=== PATIENT | male | born 1960 | race Caucasian/White ===

== ENCOUNTER 2021-05-02 19:51 | Inpatient (IN) | payer OTHER, SELFPAY ==
[2021-05-02 19:56] VITALS: BP 101/79; PULSE 118; RESP 29; TEMP 38.3; O2SAT 85; BMI 29.0
--- NOTE | 2021-05-02 19:56 | XRR_ITS ---
PROCEDURE INFORMATION: Exam: XR Chest Exam date and time: 05/02/2021 7:56 PM Age: 61 years old Clinical indication: Shortness of breath; Patient HX: Covid+; Additional info: SOB TECHNIQUE: Imaging protocol: XR of the chest. Views: 1 view. COMPARISON: No relevant prior studies available. FINDINGS: Lungs: Ground-glass opacities in the central and lower lungs. Pleural spaces: Unremarkable. No pleural effusion. No pneumothorax. Heart/Mediastinum: Unremarkable. No cardiomegaly. Bones/joints: Unremarkable. Gastrointestinal tract: Interposed colon beneath the right diaphragm. Prominent gas-filled colon, likely ileus. XR/XR chest 1V portable [id number] IMPRESSION: 1. Multilobar ground-glass opacities, consistent with pneumonia.
--- NOTE | 2021-05-02 19:56 | ECG_ITS ---
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
[2021-05-02 20:00] VITALS: PULSE 120; RESP 43; O2SAT 90
[2021-05-02 20:13] LABS: ABG PCO2 24.2 mmHg (35-45); ABG PH Result 7.55 (7.35-7.45); Arterial Blood Gas Hematocrit 52.2 % (42-52); Base Excess ABG 0.9 mmol/L (-2.0-2.0); Blood Gas Operator Identificat HARKR; Blood Gas Sample Site Brachial, left; Blood Gas Sample Type Arterial; HCO3 ABG 21.2 mmol/L (22-26); Oxygen Device BIPAP
[2021-05-02 20:16] LABS: Hematocrit 51.8 % (42.0-52.0); Hemoglobin 17.1 g/dL (11.7-16.6); Mean Corpuscular Hemoglobin 31.8 pg (28.0-34.0); Mean Corpuscular Volume 96.5 fl (80-94); Platelet Count 449 10^3/cmm (130-400); Red Blood Count 5.37 10^6/uL (4.1-5.3); Red Cell Distribution Width 13.7 % (12.1-15.1); White Blood Count 15.6 10^3/uL (4.0-10.0)
[2021-05-02] MEDS: dexamethasone 4 mg/mL INJ 6 MG IVP (20:38)
[2021-05-02 20:42] LABS: INR 1.38 (0.8-1.2)
[2021-05-02] MEDS: acetaminophen 1,000 MG/100 ML PIGGYBACK 400 MG IV (20:42)
--- NOTE | 2021-05-02 20:42 | W.ED.SOB ---
HPI - SOB/Dyspnea General: Chief Complaint: Shortness of Breath/Dyspnea Stated Complaint: COVID-DYSPNEA Time Seen by Provider: 05/02/21 19:54 Source: patient and EMS Mode of arrival: EMS Limitations: no limitations History of Present Illness: HPI Narrative: 61-year-old male who was diagnosed with Covid he states roughly 8 to 9 days ago. Patient called EMS he is having increasing shortness of breath over the last 2 to 3 days. He states they arrived his pulse ox was in the 50s. He is currently on CPAP machine by them. Patient is in respiratory distress with tachypnea. He is able to speak in 2-4 word sentences at this time. He been febrile he states he has had a productive cough. No vomiting or diarrhea. Associated symptoms: Reports fever(s); Deny abdominal pain, chest pain, nausea or vomiting Review of Systems Const: Reports: fever(s) and chills Eyes: Denies: blurry vision or eye discomfort ENMT: Denies: throat pain or dental pain Card: Denies: chest pain Resp: Reports: dyspnea and non-productive cough GI: Denies: abdominal pain, nausea, vomiting or diarrhea : Denies: dysuria Musc: Denies: neck pain or back pain Skin/Breast: Denies: rash Neuro: Denies: headache(s) Psych: Denies: depression Tru/Lymph: Denies: easy bruising All/Imm: Denies: urticaria Physical Exam Const: COMMON NORMALS: patient oriented x3 GENERAL APPEARANCE: in distress and ill appearing HENMT: COMMON NORMALS: normocephalic and atraumatic HEAD & SCALP: normocephalic and atraumatic Eye: COMMON NORMALS: Equal, round and reactive pupils present and EOMs intact bilaterally PUPIL: Yes Equal, round and reactive pupils present Neck/C-Spine: COMMON NORMALS: full ROM and supple Chest: COMMONS NORMALS: normal inspection of the chest and normal palpation of entire chest wall Resp: EFFORT & INSPECTION: Yes tachypneic and Yes respiratory distress AUSCULTATION: rales Cardio: COMMON NORMALS: regular rhythm and No murmurs present (Cardio) RATE: tachycardic RHYTHM: regular rhythm GI: COMMON NORMALS: Normal to inspection, nondistended, normoactive bowel sounds present, Soft to palpation, non-tender and no masses PALPATION: Yes Soft to palpation Extremity: COMMON NORMALS: normal to inspection and full ROM Neuro: COMMON NORMALS: patient oriented x3, moves all extremities and no focal motor deficits Psych: COMMON NORMALS: mental status grossly normal, Normal thought process present and cooperative THOUGHT PROCESS: Normal thought process present Skin: COMMON NORMALS: no rashes or lesions noted and no wounds GENERAL SKIN EXAM: no rashes or lesions noted Procedures Central Line Placement Right IJ: Time Out Performed: Yes Patient Placed on Monitor/Pulse Ox: Yes MD Prep: mask, gown and gloves Central Line Prep: Chlorhexidine scrub Ultrasound Used for Placement: Yes Central Line Lumen Inserted: triple Post Procedure: sutured in place, good blood return, all ports aspirated, flushed, capped and sterile dressing applied Post Procedure X-Ray: tip of catheter in good position and no pneumothorax seen Patient Tolerated Procedure: well Complications: none Intubation Time out performed: Yes sedative: Etomidate Mg Given: 20 paralytic: Succinylcholine Mg Given: 100 Laryngoscope: Dionna ET Tube Size: 8 ET Tube Uncuffed: No Tube Secured Depth (cm): 26 Tube Secured Location: lips Tube Placement Confirmation: visualized tube passing through cords, equal breath sounds bilaterally, no breath sounds over epigastrium and confirmation by capnometry Patient Tolerated Procedure: well Intubation Complications: none Course Vital Signs: Vital signs: Vital Signs Temperature 100.9 F H 05/02/21 19:56 Pulse Rate 44 L 05/03/21 04:05 Respiratory Rate 20 H 05/03/21 02:46 Blood Pressure 160/86 05/03/21 04:05 Pulse Oximetry 97 05/03/21 04:00 MDM - SOB/Dyspnea MDM Narrative: Medical decision making narrative: Patient presents here with Covid pneumonia. Patient continued to be hypoxic even on BiPAP. Patient initially was DNI but after I spoke to him at length he decided he would like to be intubated. Patient was intubated had central line started. I spoke to hospitalist and will admit to the ICU. Lab Data: Labs: Lab Results 05/02/21 05/02/21 05/02/21 20:03 20:10 20:10 WBC 15.6 10^3/uL H 10 ^3/uL (4.0-10.0) Corrected WBC 14.6 10^3/cmm H 1 0^3/cmm (4.8-10.8) RBC 5.37 10^6/uL H 10 ^6/uL (4.1-5.3) Hgb 17.1 g/dL H g/dL (11.7-16.6) Hct 51.8 % % (42.0-52.0) MCV 96.5 fl H fl (80-94) MCH 31.8 pg pg (28.0-34.0) MCHC 33.0 g/dL g/dL (30.0-36.0) RDW 13.7 % % (12.1-15.1) Plt Count 449 10^3/cmm H 10 ^3/cmm (130-400) MPV 10.0 fL fL (7.4-10.4) Lymph % (Auto) Not Reportable [place] % (Auto) Not Reportable Lymph # (Auto) Not Reportable [place] # (Auto) Not Reportable Total Counted 100 (0-100) Atypical Lymphs % 7.0 % H % (0-5) Absolute Neutrophi ls 12.0 10^3/cmm H 1 0^3/cmm (1.4-6.5) Segmented Neutroph ils 71 % % Abs Segm Neuts (Ma n) 11.1 10/cmm H 10/ cmm (1.6-7.1) Band Neutrophils 6.0 % % Abs Band Neuts (Ma n) 0.9 10^3/cmm 10^3 /cmm (0.0-1.2) Absolute Lymphocyt es 2.3 10^3/cmm 10^3 /cmm (1.2-3.4) Lymphocytes (Manua l) 8 % % Monocytes (Manual) 1.0 % % Absolute Monocytes 0.2 10^3/cmm 10^3 /cmm (0.1-0.6) Eosinophils (Manua l) Not Reportable Basophils (Manual) Not Reportable Nucleated RBCs 7.0 /100WBC H /10 0WBC (0-1) Platelet Estimate Increased (Normal) Giant Platelets Trace Polychromasia Trace PT 17.30 SECONDS H S ECONDS (12.1-14.9) INR 1.38 H (0.8-1.2) Fibrinogen 537 mg/dL H mg/dL (174-498) D-Dimer 16.42 ug/mIFEU H ug/mIFEU (0-0.59) Specimen Type Arterial Sample Site Brachial, left ABG pH 7.55 H (7.35-7.45) ABG pCO2 24.2 mmHg L mmHg (35-45) ABG pO2 71.0 mmHg L mmHg (80.0-100.0) ABG HCO3 21.2 mmol/L L mmo l/L (22-26) ABG Base Excess 0.9 mmol/L mmol/L (-2.0-2.0) Alpesh Test N/a Hematocrit 52.2 % H % (42-52) O2 Delivery Device Bipap FiO2 100.0 % % Tidal Volume PEEP Mint Machine Operator ID Harkr Sodium Potassium Chloride Carbon Dioxide Anion Gap BUN Creatinine GFR Calculation Glucose Calculated Osmolal ity Lactic Acid Lactic Acid (Sepsi s) Calcium Total Bilirubin AST ALT Alkaline Phosphata se C-Reactive Protein NT-Pro-B Natriuret Pep Total Protein Albumin Globulin Procalcitonin SARS-CoV-2 Ag (Rap id) 05/02/21 05/02/21 05/02/21 20:10 20:10 22:47 WBC Corrected WBC RBC Hgb Hct MCV MCH MCHC RDW Plt Count MPV Lymph % (Auto) [place] % (Auto) Lymph # (Auto) [place] # (Auto) Total Counted Atypical Lymphs % Absolute Neutrophi ls Segmented Neutroph ils Abs Segm Neuts (Ma n) Band Neutrophils Abs Band Neuts (Ma n) Absolute Lymphocyt es Lymphocytes (Manua l) Monocytes (Manual) Absolute Monocytes Eosinophils (Manua l) Basophils (Manual) Nucleated RBCs Platelet Estimate Giant Platelets Polychromasia PT INR Fibrinogen D-Dimer Specimen Type Arterial Sample Site Brachial, right ABG pH 7.51 H (7.35-7.45) ABG pCO2 32.6 mmHg L mmHg (35-45) ABG pO2 54.8 mmHg L mmHg (80.0-100.0) ABG HCO3 25.7 mmol/L mmol/ L (22-26) ABG Base Excess 3.2 mmol/L H mmol /L (-2.0-2.0) Alpesh Test N/a Hematocrit 48.1 % % (42-52) O2 Delivery Device Bipap FiO2 95.0 % % Tidal Volume PEEP Mint Machine Operator ID Harkr Sodium 129 mmol/L L mmol /L (136-145) Potassium 5.0 mmol/L mmol/L (3.5-5.1) Chloride 90 mmol/L L mmol/ L (98-107) Carbon Dioxide 21 mmol/L L mmol/ L (22-29) Anion Gap 23.0 H (5-19) BUN 38 mg/dL H mg/dL (8-23) Creatinine 1.6 mg/dL H mg/dL (0.7-1.2) GFR Calculation 44.3 mL/min L mL/ min (90-130) Glucose 186 mg/dL H mg/dL (65-115) Calculated Osmolal ity 282 mOsm/kg L mOs m/kg (285-295) Lactic Acid 7.0 mmol/L H* mmo l/L (0.5-2.2) Lactic Acid (Sepsi s) Calcium 8.5 mg/dL mg/dL (8.5-10.5) Total Bilirubin 1.3 mg/dL H mg/dL (0.15-1.2) AST 76 U/L H U/L (0-40) ALT 34 U/L U/L (0-41) Alkaline Phosphata se 114 IU/L IU/L (40-130) C-Reactive Protein 161.0 mg/L H mg/L (0.0-4.9) NT-Pro-B Natriuret Pep 561 pg/mL H pg/mL (0-125) Total Protein 7.5 g/dL g/dL (6.6-8.7) Albumin 2.5 g/dL L g/dL (3.5-5.2) Globulin 5.0 g/dL H g/dL (1.3-4.6) Procalcitonin 0.72 ng/mL H ng/m L (0-0.5) SARS-CoV-2 Ag (Rap id) 05/02/21 05/02/21 05/03/21 22:56 23:30 00:25 WBC Corrected WBC RBC Hgb Hct MCV MCH MCHC RDW Plt Count MPV Lymph % (Auto) [place] % (Auto) Lymph # (Auto) [place] # (Auto) Total Counted Atypical Lymphs % Absolute Neutrophi ls Segmented Neutroph ils Abs Segm Neuts (Ma n) Band Neutrophils Abs Band Neuts (Ma n) Absolute Lymphocyt es Lymphocytes (Manua l) Monocytes (Manual) Absolute Monocytes Eosinophils (Manua l) Basophils (Manual) Nucleated RBCs Platelet Estimate Giant Platelets Polychromasia PT INR Fibrinogen D-Dimer Specimen Type Sample Site ABG pH ABG pCO2 ABG pO2 ABG HCO3 ABG Base Excess Alpesh Test Hematocrit O2 Delivery Device FiO2 Tidal Volume PEEP Mint Machine Operator ID Sodium Potassium Chloride Carbon Dioxide Anion Gap BUN Creatinine GFR Calculation Glucose Calculated Osmolal ity Lactic Acid Lactic Acid (Sepsi s) 3.2 mmol/L H mmol /L (0.5-2.2) Calcium Total Bilirubin AST ALT Alkaline Phosphata se C-Reactive Protein NT-Pro-B Natriuret Pep Total Protein Albumin Globulin Procalcitonin SARS-CoV-2 Ag (Rap id) Negative Negative (Negative) (Negative) 05/03/21 03:34 WBC Corrected WBC RBC Hgb Hct MCV MCH MCHC RDW Plt Count MPV Lymph % (Auto) [place] % (Auto) Lymph # (Auto) [place] # (Auto) Total Counted Atypical Lymphs % Absolute Neutrophi ls Segmented Neutroph ils Abs Segm Neuts (Ma n) Band Neutrophils Abs Band Neuts (Ma n) Absolute Lymphocyt es Lymphocytes (Manua l) Monocytes (Manual) Absolute Monocytes Eosinophils (Manua l) Basophils (Manual) Nucleated RBCs Platelet Estimate Giant Platelets Polychromasia PT INR Fibrinogen D-Dimer Specimen Type Arterial Sample Site Brachial, left ABG pH 7.45 (7.35-7.45) ABG pCO2 37.4 mmHg mmHg (35-45) ABG pO2 64.0 mmHg L mmHg (80.0-100.0) ABG HCO3 25.6 mmol/L mmol/ L (22-26) ABG Base Excess 1.7 mmol/L mmol/L (-2.0-2.0) Alpesh Test N/a Hematocrit 45.6 % % (42-52) O2 Delivery Device Vent FiO2 100.0 % % Tidal Volume 0.50 PEEP 12.0 cmH20 cmH20 Mint Machine Operator ID Harkr Sodium Potassium Chloride Carbon Dioxide Anion Gap BUN Creatinine GFR Calculation Glucose Calculated Osmolal ity Lactic Acid Lactic Acid (Sepsi s) Calcium Total Bilirubin AST ALT Alkaline Phosphata se C-Reactive Protein NT-Pro-B Natriuret Pep Total Protein Albumin Globulin Procalcitonin SARS-CoV-2 Ag (Rap id) Imaging Data^: CT Chest: Attestation: I personally reviewed and interpreted this imaging study as follows: Radiologist's impression: [facility] [address] [place] [address] CT Scan Report Signed Patient: Alpesh Guajardo Unit #: [id number] : 1960 Age/Sex: 61 / M ADM Date: 05/02/21 Loc: ER Room/Bed: Attending Dr: Ordering Provider/Ordering MD: Andrea Sanchez MD Date of Service: 05/02/21 Procedure(s): CT angio chest PE protcl [id number] Accession Number(s): [id number] Report Number: [id number] PROCEDURE INFORMATION: Exam: CTA Chest With Contrast Exam date and time: 05/02/2021 8:57 PM Age: 61 years old Clinical indication: Shortness of breath; Patient HX: Covid+; Additional info: SOB TECHNIQUE: Imaging protocol: Computed tomographic angiography of the chest with contrast. 3D rendering (Not supervised by radiologist): MIP and/or 3D reconstructed images were created by the technologist. Radiation optimization: All CT scans at this facility use at least one of these dose optimization techniques: automated exposure control; mA and/or kV adjustment per patient size (includes targeted exams where dose is matched to clinical indication); or iterative reconstruction. Contrast material: VISI 320; Contrast volume: 63 ml; Contrast route: INTRAVENOUS (IV); COMPARISON: CR (CHEST, ) 05/02/2021 8:18 PM RADIATION DOSE METRICS: Total DLP (mGy-cm): 514.3 FINDINGS: Pulmonary arteries: No definite filling defects identified within the pulmonary arteries. Evaluation is limited by significant breathing motion artifact. Aorta: Unremarkable. No aortic aneurysm. No aortic dissection. Lungs: Diffuse ground-glass opacities throughout both lungs. Focal consolidation in the posterior lower lobes and posterior right upper lobe. Pleural spaces: Unremarkable. No pneumothorax. No pleural effusion. Heart: Unremarkable. No cardiomegaly. No pericardial effusion. Lymph nodes: Prominent mediastinal and hilar lymph nodes are most likely reactive. Bones/joints: Unremarkable. No acute fracture. Soft tissues: Unremarkable. CT/CT angio chest PE protcl [id number] IMPRESSION: 1. No evidence for pulmonary embolus. Evaluation is limited by breathing motion artifact. 2. Diffuse ground-glass opacities, consistent with multilobar pneumonia. This pattern is indeterminate and can be seen with COVID-19 pneumonia as well as other infectious etiologies. Radiation Dose CTDIVOL = (mGy): DLP = 514.3 (mGy-cm) Dictated By: Vinicius Aguirre Signed By: Vinicius Aguirre Signed Date/Time: 05/02/212249 DD/ 49 EKG Data^: EKG 1: Attestation: I personally reviewed and interpreted this EKG as follows: EKG Interpretation Date: 05/16/21 EKG interpretation time: 20:23 Interpretation: sinus tach hr [address] or t wave abnormalities qrs 72 qtc 390 Critical Care Time Critical Care Time: Critical Care Time: Yes Total Critical Care Time: 35 Attestation: This case had a high probability of a clinically significant, sudden, or life threatening deterioration of this patient's condition which required my full and direct attention, intervention and personal management. Discharge Plan Discharge Patient Disposition: Admitted As Inpatient Clinical Impression: Pneumonia due to 2019-nCoV Condition: Stable Coding Level of Care Code ED Equal Opportunity Specialist for Chg Fwd Exam Comprehensive
[2021-05-02 20:43] LABS: Fibrinogen 537 mg/dL (174-498); NT Pro B Type Natriuretic Pept 561 pg/mL (0-125); Procalcitonin 0.72 ng/mL (0-0.5)
[2021-05-02 20:48] LABS: Absolute Segmented Neutrophil 11.1 10/cmm (1.6-7.1); Band Neutrophils Absolute 0.9 10^3/cmm (0.0-1.2); Lymphocytes 8 %; Monocytes Absolute 0.2 10^3/cmm (0.1-0.6); Segmented Neutrophils 71 %; Total Cells Counted 100 (0-100)
[2021-05-02 20:49] LABS: Corrected White Blood Count 14.6 10^3/cmm (4.8-10.8); Giant Platelets Trace; Lymphocytes Absolute 2.3 10^3/cmm (1.2-3.4); Platelet Estimate Increased (Normal); Polychromasia Trace
[2021-05-02 20:53] LABS: D Dimer 16.42 ug/mIFEU (0-0.59)
[2021-05-02 20:55] LABS: Alanine Aminotransferase 34 U/L (0-41); Albumin Level 2.5 g/dL (3.5-5.2); Alkaline Phosphatase 114 IU/L (40-130); Aspartate Amino Transferase 76 U/L (0-40); Blood Urea Nitrogen 38 mg/dL (8-23); Calcium 8.5 mg/dL (8.5-10.5); Carbon Dioxide 21 mmol/L (22-29); Chloride 90 mmol/L (98-107); Glomerular Filtration Rate 44.3 mL/min (90-130); Glucose 186 mg/dL (65-115); Osmolality Calculated 282 mOsm/kg (285-295); Sodium 129 mmol/L (136-145); Total Bilirubin 1.3 mg/dL (0.15-1.2); Total Protein 7.5 g/dL (6.6-8.7)
--- NOTE | 2021-05-02 20:57 | CTR_ITS ---
PROCEDURE INFORMATION: Exam: CTA Chest With Contrast Exam date and time: 05/02/2021 8:57 PM Age: 61 years old Clinical indication: Shortness of breath; Patient HX: Covid+; Additional info: SOB TECHNIQUE: Imaging protocol: Computed tomographic angiography of the chest with contrast. 3D rendering (Not supervised by radiologist): MIP and/or 3D reconstructed images were created by the technologist. Radiation optimization: All CT scans at this facility use at least one of these dose optimization techniques: automated exposure control; mA and/or kV adjustment per patient size (includes targeted exams where dose is matched to clinical indication); or iterative reconstruction. Contrast material: VISI 320; Contrast volume: 63 ml; Contrast route: INTRAVENOUS (IV); COMPARISON: CR (CHEST, ) 05/02/2021 8:18 PM RADIATION DOSE METRICS: Total DLP (mGy-cm): 514.3 FINDINGS: Pulmonary arteries: No definite filling defects identified within the pulmonary arteries. Evaluation is limited by significant breathing motion artifact. Aorta: Unremarkable. No aortic aneurysm. No aortic dissection. Lungs: Diffuse ground-glass opacities throughout both lungs. Focal consolidation in the posterior lower lobes and posterior right upper lobe. Pleural spaces: Unremarkable. No pneumothorax. No pleural effusion. Heart: Unremarkable. No cardiomegaly. No pericardial effusion. Lymph nodes: Prominent mediastinal and hilar lymph nodes are most likely reactive. Bones/joints: Unremarkable. No acute fracture. Soft tissues: Unremarkable. CT/CT angio chest PE protcl [id number] IMPRESSION: 1. No evidence for pulmonary embolus. Evaluation is limited by breathing motion artifact. 2. Diffuse ground-glass opacities, consistent with multilobar pneumonia. This pattern is indeterminate and can be seen with COVID-19 pneumonia as well as other infectious etiologies. Radiation Dose CTDIVOL = (mGy): DLP = 514.3 (mGy-cm)
[2021-05-02] MEDS: sodium chloride 0.9% 1,000 ML 999 ML IV (21:05)
[2021-05-02] MEDS: sodium chloride 0.9% 500 ML 999 ML IV (21:21)
[2021-05-02] MEDS: remdesivir 200 MG in sodium chloride 0.9% (100 ml) 60 ML 100 MG IV (21:37)
[2021-05-02] MEDS: iodixanol 320 mg/mL 100mL Btl IV (21:48)
[2021-05-02 22:01] LABS: Reflex Lactate Order REFLEX LACTIC ORDERD
[2021-05-02 22:58] LABS: ABG PCO2 32.6 mmHg (35-45); ABG PH Result 7.51 (7.35-7.45); Arterial Blood Gas Hematocrit 48.1 % (42-52); Base Excess ABG 3.2 mmol/L (-2.0-2.0); Blood Gas Operator Identificat HARKR; Blood Gas Sample Site Brachial, right; Blood Gas Sample Type Arterial; HCO3 ABG 25.7 mmol/L (22-26); Oxygen Device BIPAP; PO2 ABG 54.8 mmHg (80.0-100.0)
[2021-05-02 22:59] VITALS: BP 107/73; PULSE 80; RESP 26; O2SAT 87
[2021-05-02 23:00] VITALS: BP 94/62; PULSE 73; RESP 30; O2SAT 87
[2021-05-02 23:03] VITALS: PULSE 99; RESP 35; O2SAT 90
[2021-05-02 23:30] VITALS: BP 98/66; PULSE 73; RESP 30; O2SAT 89
[2021-05-02 23:34] LABS: Lactic Acid level (Lactate) 3.2 mmol/L (0.5-2.2)
[2021-05-02 23:54] LABS: SARS Covid-2 Antigen Negative (Negative)
[2021-05-03] VITALS (98 sets, daily range): BP systolic 73–160; BP diastolic 53–94; PULSE 41–81; RESP 18–31; TEMP 36.4–36.8; O2SAT 86–99
[2021-05-03 01:02] LABS: SARS Covid-2 Antigen Negative (Negative)
--- NOTE | 2021-05-03 02:06 | XRR_ITS ---
PROCEDURE INFORMATION: Exam: XR Chest Exam date and time: 05/03/2021 2:06 AM Age: 61 years old Clinical indication: Device placement; Ett placement (vent status); Patient HX: Check for ett and ng placement. ; Additional info: Intubation TECHNIQUE: Imaging protocol: XR of the chest. Views: 1 view. COMPARISON: CR (CHEST, ) 05/02/2021 8:18 PM FINDINGS: Tubes, catheters and devices: Endotracheal tube is at the ida and should be withdrawn approximately 3.5 cm. Nasogastric tube is in place. However, the inferior portion of the tube is not visualized. Lungs: Mild worsening of bilateral pulmonary opacities which may be secondary to pneumonia or edema. Pleural spaces: Unremarkable. No pleural effusion. No pneumothorax. Heart/Mediastinum: Unremarkable. No cardiomegaly. Bones/joints: Unremarkable. XR/XR chest 1V portable [id number] IMPRESSION: 1. Endotracheal tube is at the ida and should be withdrawn approximately 3.5 cm. 2. Mild worsening of bilateral pulmonary opacities which may be secondary to pneumonia or edema.
[2021-05-03] MEDS: succinylcholine 20 mg/mL SDV 10mL 100 MG IV (02:14)
[2021-05-03] MEDS: cefTRIAXone 1,000 MG in sodium chloride 0.9% (plus) 50 ML 100 MG IV ×2 (02:40→07:31)
[2021-05-03] MEDS: propofol 1,000 MG/100 ML INJ 4.9 MG IV (02:45)
--- NOTE | 2021-05-03 03:12 | XRR_ITS ---
PROCEDURE INFORMATION: Exam: XR Chest Exam date and time: 05/03/2021 3:12 AM Age: 61 years old Clinical indication: Other vascular access device placement or adjustment; Central line, non-tunnelled; Patient HX: Check S/P central line placement TECHNIQUE: Imaging protocol: XR of the chest. Views: 1 view. COMPARISON: CR (CHEST, ) 05/03/2021 2:31 AM FINDINGS: Tubes, catheters and devices: Endotracheal tube in good position. Right-sided central venous catheter tip in the distal superior vena cava. No pneumothorax. Nasogastric tube is in place. However, the inferior portion of the tube is not visualized. Lungs: The stable bilateral pulmonary opacities. Pleural spaces: See Tubes, catheters and devices finding. Heart/Mediastinum: Unremarkable. No cardiomegaly. Bones/joints: Unremarkable. XR/XR chest 1V portable [id number] IMPRESSION: 1. Endotracheal tube in good position. 2. Right-sided central venous catheter tip in the distal superior vena cava. No pneumothorax. 3. The stable bilateral pulmonary opacities.
[2021-05-03] MEDS: vecuronium 10 mg SDV IVP (03:15)
[2021-05-03 03:45] LABS: ABG PCO2 37.4 mmHg (35-45); ABG PH Result 7.45 (7.35-7.45); Arterial Blood Gas Hematocrit 45.6 % (42-52); Base Excess ABG 1.7 mmol/L (-2.0-2.0); Blood Gas Operator Identificat HARKR; Blood Gas Sample Site Brachial, left; Blood Gas Sample Type Arterial; HCO3 ABG 25.6 mmol/L (22-26); Oxygen Device VENT
[2021-05-03] MEDS: azithromycin 500 MG in sodium chloride 0.9% 250 ML 250 MG IV ×2 (03:45→07:31)
--- NOTE | 2021-05-03 04:50 | ECG_ITS ---
[facility] Test Date: 2021-05-03 Pat Name: Alpesh Guajardo Department: Room: EDIP Gender: Male Electrotype Caster: : 1960 Requested By: Andrea Sanchez Order Number: [id number] Rosa MD: Feli Smith M.D. Measurements Intervals [place] Rate: 41 P: 40 TN: 133 QRS: 43 QRSD: 96 T: 74 QT: 587 QTc: 487 Interpretive Statements SINUS BRADYCARDIA WITH SINUS ARRHYTHMIA PROLONGED QT INTERVAL CRITICAL TEST RESULT No previous ECG available for comparison Electronically Signed On 05-03-2021 20:33:31 CDT by Feli Smith M.D. [id number]
[2021-05-03] MEDS: atropine 0.1 mg/mL Syr 10 mL 0.5 MG IVP (05:08)
[2021-05-03 05:38] LABS: Magnesium 2.9 mg/dL (1.7-2.3)
--- NOTE | 2021-05-03 06:23 | ECG_ITS ---
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 Measurements Intervals [place] Rate: 64 P: 50 HI: 145 QRS: 48 QRSD: 98 T: 59 QT: 483 QTc: 501 Interpretive Statements SINUS RHYTHM PROLONGED QT INTERVAL No previous ECG available for comparison Electronically Signed On 05-03-2021 20:34:00 CDT by Feli Smith M.D. [id number]
--- NOTE | 2021-05-03 06:28 | P.HP_ITS ---
Providers/Chief Complaint Admitting Physician: Susan Kingsley MD Chief Complaint: COVID-DYSPNEA History of Present Illness Limited history available at this time. Alpesh Guajardo is a 61 year old male who tested positive for COVID-19 1 week ago at [facility]. Presented to the ER today complaining of shortness of breath. When EMS arrived he was noted to have oxygen saturation of 50% on room air. Upon presentation he re he was quickly placed on BiPAP and required to be on 90% FiO2. He initially declined being intubated, however later during course of ER stay developed worsening respiratory distress and agreed to be intubated and mechanically ventilated. ABG upon admission with 7.5/32.6/PO2 54.8 on 95% FiO2 on BiPAP. Other labs notable for elevated lactate at 7, sodium of 129, elevated D-dimer, CTA of the chest negative for PE, elevated procalcitonin, CTA chest with bilateral diffuse groundglass opacities consistent with multilobar pneumonia. Patient's past medical history and home medication list is not currently available at this time. After intubation patient did develop hypotension for which she is currently on Levophed infusion at 4 mics. Also noted to have sinus bradycardia on telemetry while on propofol infusion. EKG and troponins pending. Requested propofol to be switched to midazolam for sedation. Review of Systems General: Reports: ROS unobtainable due to endotracheal tube Medications/Allergies Allergies Allergy/AdvReac Type Severity Reaction Status Date / Time red meat Allergy ALGY-Anaphy Uncoded 05/02/21 20:10 laxis Vitals/I&O/Wt Last Vital Signs Temp 100.9 F H 05/02/21 19:56 Pulse 50 L 05/03/21 05:05 Resp 20 H 05/03/21 02:46 BP 156/93 05/03/21 05:05 Pulse Ox 96 05/03/21 05:05 05/02/21 05/02/21 05/03/21 14:59 22:59 06:59 Intake Total 1560 / 1560 221.177 / 1781.177 Balance 1560 / 1560 221.177 / 1781.177 Weight last 48 hrs Weight 81.647 kg Physical Exam Narrative: EXAM NARRATIVE: General: intubated, sedated HEENT: pupils bilaterally equal and reactive Chest: Crackled to auscultation B/L CVS: S1-S2 regular, no murmurs, no tachycardia, no gallops, no rubs Abdomen: Soft, nontender, no organomegaly, bowel sounds present Neuro: unable to assess at this time Urinary Catheter Management^: Dewey: Cath Placed During This Visit: yes Urinary Catheter Date of Insertion: 05/03/21 Urinary Catheter Time of Insertion: 04:08 Data : 05/02/21 20:10 05/02/21 20:10 Micro: Microbiology 05/02/21 21:15 Blood Culture - Preliminary Blood SPECIMEN COLLECTED 05/02/21 20:30 Blood Culture - Preliminary Blood SPECIMEN COLLECTED A&P Assessment and plan (1) Pneumonia due to 2019-nCoV: Status: Acute (2) Respiratory failure with hypoxia: Status: Acute Qualifiers: Chronicity: acute Qualified Code(s): J96.01 - Acute respiratory failure with hypoxia (3) ARDS (adult respiratory distress syndrome): Status: Acute Additional A&P Information Patient presenting today with COVID-19 pneumonia, and resulting ARDS, respiratory failure with hypoxia requiring intubation and mechanical ventilation. Remdisivir 200mg iv x 1 followed by 100mg iv daily dexamethasone 6mg IVP daily duoneb q6h, budesonide q12h empiric CTX and azithromycin given elevated procalcitonin Rapidly progressing respiratory distress for which patient was intubated shortly after arrival. trend inflammatory markers including CRP, D dimer CTA PE negative for PE, however significantly elevated D-dimer, currently started on full dose Lovenox. Bradycardia and hypotension developing after intubation and propofol infusion, requested EKG and troponin series, propofol switched to midazolam infusion for sedation. Continue fentanyl Titrate Levophed to MAP greater than 65 Attestations Medical Necessity Statement*: Greater than 2 midnight admission will be needed for management of above. Coding Level of Care Code Acute Telesales Representative for [facility] Fwd Diagnoses Pneumonia due to 2019-nCoV U07.1; J12.82 Respiratory failure with hypoxia J96.01 Chronicity: acute ARDS (adult respiratory distress syndrome) J80
[2021-05-03] MEDS: atropine 0.1 mg/mL Syr 10 mL 1 MG (06:29)
[2021-05-03 07:14] LABS: Troponin 5 2HR 22.98 ng/L (0-15)
[2021-05-03] MEDS: FUROsemide 10 mg/mL SDV 2mL 20 MG IVP (07:27)
[2021-05-03] MEDS: propofol 1,000 MG/100 ML INJ 17.15 MG IV (07:30)
[2021-05-03] MEDS: dexamethasone 4 mg/mL INJ 6 MG IVP (07:31)
[2021-05-03] MEDS: enoxaparin 80 mg/0.8 mL Syringe SUBCUT ×2 (07:31→18:43)
--- NOTE | 2021-05-03 07:32 | PC.PHAR ---
pt is intubated-no meds pull up on ext med history
[2021-05-03 07:43] LABS: Thyroid Stimulating Hormone 0.69 uIU/mL (0.27-4.20)
[2021-05-03 07:44] LABS: Troponin 5 2HR Delta -1.02 ABS# (0-10)
[2021-05-03 07:44] LABS: Troponin(5th) Baseline 24 ng/L (0-15)
[2021-05-03 07:48] LABS: Glucose Point of Care 237 mg/dL (70-110)
[2021-05-03] MEDS: budesonide 0.5 mg/2 mL Neb INHALATION ×2 (08:04→21:24)
[2021-05-03] MEDS: ipratropium-albuterol 3 mL Neb INHALATION ×3 (08:04→21:24)
--- NOTE | 2021-05-03 08:23 | ECG_ITS ---
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 Measurements Intervals [place] Rate: P: UT: QRS: QRSD: T: QT: QTc: Interpretive Statements Has bradycardia with sinus arrhythmia Short UT interval WARNING: DATA QUALITY MAY AFFECT INTERPRETATION Compared to ECG 05/03/2021 06:41:45 Sinus rhythm no longer present Prolonged QT interval no longer present Electronically Signed On 05-03-2021 20:41:20 CDT by Feli Smith M.D. [id number]
--- NOTE | 2021-05-03 09:23 | USCV_ITS ---
Alpesh Guajardo Age: 61 Gender: M : 1960 Exam Date: 05/03/2021 10:17 Ordering Phys: Carlos A Rodarte MD Technologist: [place] [facility] [place]: PE BP: 113 / 74 HR: 56 Rhythm: Sinus Technical Quality: Very poor MEASUREMENTS (Male / Female) Normal Values 2D ECHO LV Diastolic Diameter PLAX 3.7 cm 4.2 - 5.9 / 3.9 - 5.3 cm LV Systolic Diameter PLAX 2.0 cm IVS Diastolic Thickness 0.9 cm 0.6 - 1.0 / 0.6 - 0.9 cm IVS Systolic Thickness 1.2 cm LVPW Diastolic Thickness 1.1 cm 0.6 - 1.0 / 0.6 - 0.9 cm LVPW Systolic Thickness 1.3 cm LVOT Diameter 2.0 cm LV Ejection Fraction 2D Teich 78.9 % LV Ejection Fraction MOD 2C 52.9 % LV Ejection Fraction 2C AL 52.8 % LA Diameter 3.3 cm LA Width 3.6 cm LA Height 4.4 cm RA Width 4.2 cm RA Height 3.8 cm M-MODE MV E Point Septal Separation 0.8 cm DOPPLER AV Peak Velocity 103.0 cm/s LVOT Peak Velocity 67.0 cm/s AV Area Cont Eq vti 2.7 cm squared AV Area Cont Eq pk 2.0 cm squared MV Area PHT 5.0 cm squared Mitral E to A Ratio 0.9 MV E' Velocity 46.0 cm/s TR Peak Velocity 170.3 cm/s TR Peak Gradient 11.6 mmHg Right Atrial Pressure 3.0 mmHg Pulmonary Artery Systolic Pressu 14.6 mmHg PV Peak Velocity 51.0 cm/s FINDINGS Left Ventricle Normal left ventricular cavity size. Normal left ventricular systolic function. Left ventricular ejection fraction is estimated at 55 %. Right Ventricle The right ventricle is normal in size and function. Right Atrium The right atrium is normal in size. Left Atrium The left atrium is normal in size. Mitral Valve Moderately thickened mitral valve. No mitral valve stenosis. Mild mitral annular calcification. No mitral valve regurgitation. Aortic Valve Moderate aortic valve calcification. No aortic valve stenosis. No aortic valve regurgitation. Tricuspid Valve Mild tricuspid valve regurgitation. Pulmonic Valve Structurally normal pulmonic valve without significant stenosis. There is no pulmonic regurgitation. Pericardium Normal pericardium without effusion. Aorta Normal ascending aorta dimension. CONCLUSIONS 1-Normal left ventricular cavity size. Normal left ventricular systolic function. Left ventricular ejection fraction is estimated at 55 %. 2-Moderate aortic valve calcification. No aortic valve stenosis. No aortic valve regurgitation. 3-Moderately thickened mitral valve. No mitral valve stenosis. Mild mitral annular calcification. No mitral valve regurgitation. 4-Mild tricuspid valve regurgitation. 5-There is no pericardial effusion. 6-Pulmonary artery systolic pressure is within normal limits. 7-Right atrial pressure is around 5 mm of mercury. 8-There are no prior echocardiogram studies to compare. Radha Engel MD (Electronically Signed) Final Date: 03 May 2021 18:55 S
--- NOTE | 2021-05-03 09:30 | USCV_ITS ---
Alpesh Guajardo Age: 61 Gender: M : 1960 Exam Date: 05/03/2021 10:32 Ordering Phys: Carlos A Rodarte MD Technologist: [place] [facility] [place]: pe HISTORY: Pulmonary embolism. PROCEDURES: The venous duplex Doppler examination of both lower extremities was performed in the standard fashion. The following venous structures were evaluated: common femoral vein, profunda vein, proximal portion of the greater saphenous vein, superficial femoral vein, and the popliteal vein. FINDINGS: THERE IS DVT IN RT POP , PERNIEAL AND PTV . THERE IS ALSO DVT IN LT POP , PERINEAL AND PTV. CALLED DR CHAVES Bilateral DVT in both popliteal veins extending into the calf veins D/W Dr Rodarte 945am 05/04/21 Shin Chowdary MD (Electronically Signed) Final Date: 04 May 2021 09:50 S
[2021-05-03 10:37] LABS: ABG PCO2 36.9 mmHg (35-45); ABG PH Result 7.46 (7.35-7.45); Arterial Blood Gas Hematocrit 47.1 % (42-52); Base Excess ABG 2.3 mmol/L (-2.0-2.0); Blood Gas Allen Test Pos; Blood Gas Operator Identificat CAK; Blood Gas Sample Site Radial, right; Blood Gas Sample Type Arterial; Blood Gas Tidal Volume 0.48; Oxygen Device VENT; PO2 ABG 74.2 mmHg (80.0-100.0)
[2021-05-03 12:23] LABS: Glucose Point of Care 235 mg/dL (70-110)
[2021-05-03 12:54] LABS: Troponin 5 6HR 15.29 ng/L (0-15); Troponin 5 6HR Delta -8.71 ng/L (0-12)
[2021-05-03 13:55] LABS: Estmated Average Glucose 143; Hemoglobin A1C 6.6 % (4.0-6.0)
[2021-05-03 14:05] LABS: Basophils # 0.1 10^3/uL (0.0-0.1); Basophils % 0.3 %; Hematocrit 49.5 % (42.0-52.0); Hemoglobin 15.5 g/dL (11.7-16.6); Lymphocytes # 0.7 10^3/uL (0.8-4.8); Lymphocytes % 4.2 %; Mean Corpuscular HGB Conc 31.3 g/dL (30.0-36.0); Mean Corpuscular Hemoglobin 32.3 pg (28.0-34.0); Mean Platelet Volume 9.9 fL (7.4-10.4); Monocytes # 0.2 10^3/uL (0.2-0.9); Neutrophils # 16.07 10^3/uL (1.8-7.7); Neutrophils % 92.9 %; Nucleated Red Blood Cells # 0.1 /100WBC; Nucleated Red Blood Cells % 0.4 %; Platelet Count 332 10^3/cmm (130-400); White Blood Count 17.3 10^3/uL (4.0-10.0)
[2021-05-03 14:06] LABS: Mean Corpuscular Volume 103.1 fl (80-94)
[2021-05-03 14:46] LABS: Alanine Aminotransferase 24 U/L (0-41); Alkaline Phosphatase 100 IU/L (40-130); Aspartate Amino Transferase 48 U/L (0-40); Chloride 98 mmol/L (98-107); Globulin 4.4 g/dL (1.3-4.6); Glucose 255 mg/dL (65-115); Phosphorus 5.1 mg/dL (2.5-4.5); Potassium 4.2 mmol/L (3.5-5.1); Sodium 133 mmol/L (136-145); Total Protein 6.4 g/dL (6.6-8.7)
[2021-05-03 15:24] LABS: Blood Urea Nitrogen 52 mg/dL (8-23); Calcium 7.6 mg/dL (8.5-10.5); Carbon Dioxide 20 mmol/L (22-29); Glomerular Filtration Rate 47.7 mL/min (90-130); Magnesium 2.9 mg/dL (1.7-2.3); Total Bilirubin 0.9 mg/dL (0.15-1.2)
[2021-05-03 15:27] LABS: Anion Gap 19.2 (5-19); Osmolality Calculated 299 mOsm/kg (285-295)
--- NOTE | 2021-05-03 17:30 | P.PN_ITS ---
Subjective Subjective: Interval history: Patient was seen this morning, he is currently intubated, sedated, on fentanyl, Versed, 2 of Levophed, afebrile, normotensive, normal sinus rhythm, having good urine output, 80% FiO2, PEEP of 10, tidal volume 480, I was able to obtain the history from his son, who is autistic, son tells me that his father is fairly active, works at [employer], no heart problems to his knowledge, history of strokes, history of diabetes, no history of COPD, no history of smoking, he has not been vaccinated for Covid, son tells me that about 2 weeks ago, they were visiting with a friend who eventually of Covid, patient and his son started experience Covid symptoms about a week ago, his father was complaining of cough, shortness of breath, Vitals/I&O/Wt Last Vital Signs Temp 98.0 F 05/03/21 13:00 Pulse 54 L 05/03/21 14:20 Resp 20 H 05/03/21 16:32 BP 94/70 05/03/21 13:00 Pulse Ox 90 05/03/21 16:32 05/03/21 05/03/21 05/03/21 06:59 14:59 22:59 Intake Total 221.177 / 1781.177 756.219 / 756.219 Balance 221.177 / 1781.177 756.219 / 756.219 Weight last 48 hrs Weight 81.647 kg Physical Exam Narrative: EXAM NARRATIVE: Intubated, sedated Const: COMMON NORMALS: no acute distress Resp: COMMON NORMALS: normal respiratory effort, No retractions and No use of accessory muscles AUSCULTATION: diminished lung sounds diffuse Cardio: COMMON NORMALS: regular rate, regular rhythm, S1 normal heart sound present and S2 normal heart sound present RATE: regular rate RHYTHM: regular rhythm HEART SOUNDS: S1 normal heart sound present and S2 normal heart sound present GI: COMMON NORMALS: Normal to inspection, nondistended, normoactive bowel sounds present, Soft to palpation and non-tender PALPATION: Yes Soft to palpation Extremity: COMMON NORMALS: no pedal edema Urinary Catheter Management^: Dewey: Cath Placed During This Visit: yes Reason for Continuing Indwelling Catheter: Accurate Measurement of Urinary Output in Critically Ill Patients Urinary Catheter Date of Insertion: 05/03/21 Urinary Catheter Time of Insertion: 04:08 Data : 05/03/21 13:49 05/03/21 13:49 Micro: Microbiology 05/03/21 08:13 Bacterial Antigens - Final Urine,Voided 05/03/21 08:12 MRSA Culture - Final Nose 05/03/21 08:13 Legionella Urinary Antigen - Final Urine,Voided 05/03/21 07:55 Gram Stain - Final Sputum - Endotracheal Tube Aspirate 05/02/21 21:15 Blood Culture - Preliminary Blood SPECIMEN COLLECTED 05/02/21 20:30 Blood Culture - Preliminary Blood SPECIMEN COLLECTED A&P Assessment and plan (1) Pneumonia due to 2019-nCoV: Acute hypoxic respiratory failure secondary to COVID-19 pneumonia Plan -Still awaiting an ICU bed -For now continue fentanyl, Versed for sedation, can add on propofol -Continue ventilator, PEEP of 10, tidal volume 450, 80% FiO2, minimize tidal volume, minimize FiO2 -Once in ICU, will prone and paralyzed with Nimbex -Hold tube feeds for now -Maintain MAP greater than 65 currently on 2 Levophed -Continue broad-spectrum antibiotic therapy Rocephin azithromycin -Continue remdesivir -Add baricitinib -Continue Decadron -Low-dose sliding scale -Protonix for GI prophylaxis -Lovenox for DVT prophylaxis -Full code -Rapid Covid was negative, follow-up Covid PCR follow blood cultures, sputum cultures, urine bacterial antigens I was told by surgical instrument technician, that patient has bilateral DVTs in popliteal and peroneal trunks, continue therapeutic Lovenox, will await official read Sepsis, secondary to COVID-19 pneumonia as above ZACHARIAH secondary to sepsis, COVID-19 pneumonia as above NSTEMI, likely type II NSTEMI, supply demand ischemia from COVID-19 pneumonia as above, respiratory failure, continue telemetry monitoring, order cardiac echocardiogram Status: Acute (2) Respiratory failure with hypoxia: Status: Acute Qualifiers: Chronicity: acute Qualified Code(s): J96.01 - Acute respiratory failure with hypoxia (3) ARDS (adult respiratory distress syndrome): Status: Acute (4) Type 2 diabetes mellitus: Status: Acute (5) Sepsis: Status: Acute (6) ZACHARIAH (acute kidney injury): Status: Acute (7) NSTEMI (non-ST elevated myocardial infarction): Status: Acute Attestations 2 Medical Necessity Statement*: Requires hospitalization, inpatient, greater than 2 minutes, pneumonia secondary COVID-19, acute respiratory failure, bilateral DVTs Coding Level of Care Code Acute Cardiac Cath Lab Technologist for [facility] Fwd Diagnoses Pneumonia due to 2019-nCoV U07.1; J12.82 Respiratory failure with hypoxia J96.01 Chronicity: acute ARDS (adult respiratory distress syndrome) J80 Type 2 diabetes mellitus E11.9 Sepsis A41.9 ZACHARIAH (acute kidney injury) N17.9 NSTEMI (non-ST elevated myocardial infarction) I21.4
--- NOTE | 2021-05-03 17:31 | PC.NURSE ---
Update patient's son.
--- NOTE | 2021-05-03 17:32 | PC.NURSE ---
Admitting physician called to update on pt's status and possible room placement to ICU
--- NOTE | 2021-05-03 18:24 | PC.NURSE ---
Call to pharmacy for medication due at 1800. Per pharmacy follow up
[2021-05-03 18:35] LABS: Glucose Point of Care 212 mg/dL (70-110)
[2021-05-03] MEDS: remdesivir 100 MG in sodium chloride 0.9% (100 ml) 80 ML IV (18:42)
[2021-05-03] MEDS: pantoprazole 40 mg SDV IVP (18:44)
--- NOTE | 2021-05-03 19:00 | PC.NURSE ---
Chato Gallardo swab collect and sent to lab
--- NOTE | 2021-05-03 20:02 | PC.NURSE ---
Notified Dr. Marin of HR 47-52 with BP 108/73. Verified continued with levophed. Hold Atropine IV now.
--- NOTE | 2021-05-03 20:12 | PC.NURSE ---
Report to YULIANA Kate with ICU
[2021-05-03] MEDS: cisatracurium 100 MG in sodium chloride 0.9% 50 ML IV (21:47)
[2021-05-03 22:48] LABS: Glucose Point of Care 192 mg/dL (70-110)
[2021-05-04] VITALS (68 sets, daily range): BP systolic 99–160; BP diastolic 61–118; PULSE 58–111; RESP 14–29; TEMP 36–36.9; O2SAT 90–100
[2021-05-04] MEDS: ipratropium-albuterol 3 mL Neb INHALATION ×4 (03:30→20:22)
[2021-05-04 04:06] LABS: Basophils % 0.2 %; Hematocrit 44.8 % (42.0-52.0); Hemoglobin 14.9 g/dL (11.7-16.6); Lymphocytes # 0.9 10^3/uL (0.8-4.8); Mean Corpuscular HGB Conc 33.3 g/dL (30.0-36.0); Mean Corpuscular Hemoglobin 31.5 pg (28.0-34.0); Mean Corpuscular Volume 94.7 fl (80-94); Monocytes # 0.2 10^3/uL (0.2-0.9); Monocytes % 0.9 %; Neutrophils # 16.11 10^3/uL (1.8-7.7); Neutrophils % 92.6 %; Nucleated Red Blood Cells # 0.1 /100WBC; Nucleated Red Blood Cells % 0.4 %; Platelet Count 324 10^3/cmm (130-400); Red Blood Count 4.73 10^6/uL (4.1-5.3); Red Cell Distribution Width 13.4 % (12.1-15.1); White Blood Count 17.4 10^3/uL (4.0-10.0)
[2021-05-04 04:24] LABS: Lactate (Lactic Acid level) 2.5 mmol/L (0.5-2.2)
[2021-05-04 04:27] LABS: Alanine Aminotransferase 23 U/L (0-41); Albumin Level 2.2 g/dL (3.5-5.2); Alkaline Phosphatase 101 IU/L (40-130); Anion Gap 15.1 (5-19); Aspartate Amino Transferase 43 U/L (0-40); Blood Urea Nitrogen 46 mg/dL (8-23); Calcium 7.4 mg/dL (8.5-10.5); Carbon Dioxide 26 mmol/L (22-29); Chloride 101 mmol/L (98-107); Creatinine Clr Calc Pharmacy 65.6841; Globulin 4.2 g/dL (1.3-4.6); Glomerular Filtration Rate 61.8 mL/min (90-130); Glucose 226 mg/dL (65-115); Magnesium 2.8 mg/dL (1.7-2.3); Osmolality Calculated 305 mOsm/kg (285-295); Potassium 4.1 mmol/L (3.5-5.1); Sodium 138 mmol/L (136-145); Total Bilirubin 0.8 mg/dL (0.15-1.2); Total Protein 6.4 g/dL (6.6-8.7)
[2021-05-04 04:31] LABS: NT Pro B Type Natriuretic Pept 191 pg/mL (0-125)
[2021-05-04 04:44] LABS: C Reactive Protein 192.5 mg/L (0.0-4.9); Creatine Phosphokinase 175 U/L (39-308); Ferritin 924 ng/mL (30-400); INR 1.38 (0.8-1.2)
[2021-05-04 05:00] LABS: D Dimer >= 20.00 ug/mIFEU (0-0.59)
[2021-05-04 05:13] LABS: ABG PCO2 40.2 mmHg (35-45); ABG PH Result 7.45 (7.35-7.45); Arterial Blood Gas Hematocrit 46.9 % (42-52); Base Excess ABG 3.6 mmol/L (-2.0-2.0); Blood Gas Allen Test Pos; Blood Gas Sample Site Radial, left; Blood Gas Sample Type Arterial; Blood Gas Tidal Volume 0.48; HCO3 ABG 27.9 mmol/L (22-26); Oxygen Device VENT
--- NOTE | 2021-05-04 06:00 | ECG_ITS ---
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1960 Requested By: Carlos A Rodarte Order Number: [id number] Reading MD: YANCI PEREYRA Measurements Intervals [place] Rate: 97 P: 59 WI: 126 QRS: 28 QRSD: 93 T: 42 QT: 368 QTc: 470 Interpretive Statements SINUS RHYTHM INCOMPLETE RIGHT BUNDLE BRANCH BLOCK [90+ ms QRS DURATION, TERMINAL R IN V1/V2, 40+ ms S IN I/aVL/V4/V5/V6] SEPTAL MYOCARDIAL INFARCTION , OF INDETERMINATE AGE [40+ ms Q WAVE IN V1/V2] Compared to ECG 05/03/2021 18:37:50 Incomplete right bundle-branch block now present Myocardial infarct finding now present Sinus bradycardia no longer present Prolonged QT interval no longer present Electronically Signed On 05-04-2021 15:42:57 CDT by YANCI PEREYRA [id number]
[2021-05-04] MEDS: pantoprazole 40 mg SDV IVP ×2 (06:01→17:49)
[2021-05-04] MEDS: azithromycin 500 MG in sodium chloride 0.9% 250 ML 250 MG IV (06:01)
[2021-05-04] MEDS: cefTRIAXone 1,000 MG in sodium chloride 0.9% (plus) 50 ML 100 MG IV (06:21)
[2021-05-04] MEDS: dexamethasone 4 mg/mL INJ 6 MG IVP (06:21)
[2021-05-04] MEDS: enoxaparin 80 mg/0.8 mL Syringe SUBCUT ×2 (06:28→18:56)
--- NOTE | 2021-05-04 07:00 | XRR_ITS ---
PROCEDURE INFORMATION: Exam: XR Chest Exam date and time: 05/04/2021 7:00 AM Age: 61 years old Clinical indication: Shortness of breath; Patient HX: Follow up, covid; Additional info: SOB TECHNIQUE: Imaging protocol: XR of the chest. Views: 1 view. COMPARISON: CR (CHEST, ) 05/03/2021 3:22 AM FINDINGS: Tubes, catheters and devices: There is an endotracheal tube with the tip 2.3 cm above the ida. There is an enteric tube, the tip of the enteric tube is not included in the image. However, the tube is seen extending into the body of the stomach. Right IJ central line with the tip at the cavoatrial junction. Lungs: Bilateral mid lung and bilateral lower lobe interstitial and alveolar opacities, worsening on the left. Pleural spaces: No pleural effusion. No pneumothorax. Heart/Mediastinum: Stable mild enlargement of the cardiac silhouette. Mediastinal contours are unremarkable. Bones/joints: Unremarkable for age. XR/XR chest 1V portable [id number] IMPRESSION: 1. Bilateral mid lung and bilateral lower lobe interstitial and alveolar opacities, worsening on the left. Recommend followup chest imaging to insure resolution of these findings. 2. Incidental/nonacute findings are listed in the report.
[2021-05-04 08:31] LABS: Glucose Point of Care 177 mg/dL (70-110)
[2021-05-04] MEDS: budesonide 0.5 mg/2 mL Neb INHALATION ×2 (08:41→20:23)
[2021-05-04] MEDS: cholecalciferol (vitamin D3) 1,000 unit Tablet 1000 UNIT PO (09:36)
[2021-05-04] MEDS: zinc gluconate 50 mg Tablet PO (09:36)
[2021-05-04] MEDS: chlorhexidine gluconate 0.12% Btl 473 mL 15 ML MUCOUS MEM ×2 (09:36→17:49)
[2021-05-04] MEDS: ascorbic acid 500 mg Tablet PO ×2 (09:36→17:49)
--- NOTE | 2021-05-04 11:00 | P.CONIM_ITS ---
Providers/Reason For Consult Consulting Physician/Specialty*: Matt Franklin MD/ Pulmonary Critical Care Reason for Consult*: Acute hypoxic respiratory failure secondary to ARDS due to COVID-19 pneumonia Requesting Physician: Carlos A Rodarte MD Attending Physician: Carlos A Rodarte MD History of Present Illness History of Present Illness Alpesh Guajardo is a 61 year old male with past medical history diabetes tested positive for COVID-19 on 05/10/2021 at [facility]. From chart review, he Presented to the ER on 05/02/2021 complaining of shortness of breath and oxygen saturation of 50% on room air. Upon presentation here he was quickly placed on BiPAP and required to be on 90% FiO2. Later during course of ER stay developed worsening respiratory distress - intubated 05/03/2021 and mechanically ventilated. ABG upon admission with 7.5/32.6/PO2 54.8 on 95% FiO2 on BiPAP. Elevated D-dimer, CTA of the chest negative for PE, elevated procalcitonin, CTA chest with bilateral diffuse groundglass opacities consistent with multilobar pneumonia. After intubation patient did develop hypotension for which she is currently on Levophed infusion at 4 mics. Also noted to have sinus bradycardia on telemetry while on propofol infusion. Patient was moved to ICU under pulmonary care consult requested for acute hypoxic respiratory secondary to ARDS due to COVID-19 pneumonia requiring mechanical ventilation. Today patient seen at bedside He is sedated, paralyzed, connected to ventilator, in prone position. This is his first proning session -FiO2 requirement down to 50% -Other labs and imaging reviewed Review of Systems General: Reports: ROS unobtainable due to endotracheal tube, ROS unobtainable due to medical condition and ROS unobtainable due to mental status Meds/Allergies Home Medications and Allergies Home Medications Medication Instructions Recorded Confirmed Last Taken Type Unable to Assess 05/03/21 05/03/21 Unknown History Allergies Allergy/AdvReac Type Severity Reaction Status Date / Time red meat Allergy ALGY-Anaphy Uncoded 05/02/21 20:10 laxis Current Medications Current Medications Generic Name Dose Route Start Last Admin Trade Name Freq PRN Reason Stop Dose Admin Albuterol/Ipratropium 3 ml 05/03/21 09:00 05/04/21 08:41 Ipratropium-Albuterol 3 Ml Neb INHALATION 3 ml Q6H.RESPIRATORY AYLIN Administration Ascorbic Acid 500 mg 05/03/21 18:00 05/04/21 09:36 Ascorbic Acid 500 Mg Tablet PO 500 mg BID AYLIN Administration Budesonide 0.5 mg 05/03/21 08:00 05/04/21 08:41 Budesonide 0.5 Mg/2 Ml Neb INHALATION 0.5 mg BID.RESPIRATORY AYLIN Administration Chlorhexidine Gluconate 15 ml 05/03/21 18:00 05/04/21 09:36 Chlorhexidine Gluconate 0.12% Btl 473 Ml MUCOUS MEM 15 ml BID AYLIN Administration Dexamethasone 6 mg 05/03/21 07:00 05/04/21 06:21 Dexamethasone 4 Mg/Ml Inj IVP 6 mg Q24H AYLIN Administration Enoxaparin Sodium 80 mg 05/03/21 07:00 05/04/21 06:28 Enoxaparin 80 Mg/0.8 Ml Syringe SUBCUT 80 mg Q12H AYLIN Administration Remdesivir 100 mg/ Sodium 100 mls @ 100 mls/hr 05/03/21 18:00 05/03/21 19:42 Chloride IV 05/06/21 18:59 Infused Q24H AYLIN Infusion Norepinephrine Bitartrate 4 mg 254 mls @ 0 mls/hr 05/03/21 03:30 05/04/21 02:30 / Dextrose IV 0 mcg/min .Q0M AYLIN 0 mls/hr Titration Protocol Per Protocol Fentanyl 1,000 mcg/ Sodium 100 mls @ 0 mls/hr 05/03/21 06:30 05/04/21 09:53 Chloride IV 150 mcg/hr .Q0M AYLIN 15 mls/hr Administration Protocol Per Protocol Midazolam HCl 100 mg/ Sodium 100 mls @ 0 mls/hr 05/03/21 06:30 05/04/21 03:53 Chloride IV 6 mg/hr .Q0M AYLIN 6 mls/hr Administration Protocol Per Protocol Ceftriaxone Sodium 1,000 mg/ 50 mls @ 100 mls/hr 05/03/21 07:00 05/04/21 06:21 Sodium Chloride IV 100 mls/hr Q24H AYLIN Administration Protocol Azithromycin 500 mg/ Sodium 250 mls @ 250 mls/hr 05/03/21 06:30 05/04/21 06:01 Chloride IV 05/06/21 06:29 250 mls/hr Q24H AYLIN Administration Protocol Cisatracurium Besylate 100 mg/ 100 mls @ 0 mls/hr 05/03/21 17:15 05/04/21 02:00 Sodium Chloride IV 1.4 mcg/kg/min .Q0M AYLIN 6.86 mls/hr Titration Protocol Per Protocol Insulin Aspart 0 unit 05/03/21 18:00 05/04/21 09:35 Insulin Aspart 100 Unit/1 Ml SUBCUT 2 unit TIDWM AYLIN Administration Protocol Pantoprazole Sodium 40 mg 05/03/21 17:30 05/04/21 06:01 Pantoprazole 40 Mg Sdv IVP 40 mg Q12H AYLIN Administration Vitamin D 1,000 unit 05/04/21 09:00 05/04/21 09:36 Cholecalciferol (Vitamin D3) 1,000 Unit Tablet PO 1,000 unit DAILY AYLIN Administration Zinc Gluconate 50 mg 05/04/21 09:00 05/04/21 09:36 Zinc Gluconate 50 Mg Tablet PO 50 mg DAILY AYLIN Administration Vitals/I&O/Wt Last Vital Signs Temp 98.2 F 05/04/21 04:00 Pulse 72 05/04/21 08:42 Resp 20 H 05/04/21 09:47 BP 112/71 05/04/21 05:30 Pulse Ox 94 05/04/21 09:47 05/03/21 05/04/21 05/04/21 22:59 06:59 14:59 Intake Total 171.446 / 927.665 248.369 / 1176.034 88.25 / 88.25 Output Total 1400 / 1400 850 / 2250 Balance -1228.554 / -472.335 -601.631 / -1073.966 88.25 / 88.25 Weight last 48 hrs Weight 180 lb Physical Exam Narrative: EXAM NARRATIVE: PHYSICAL EXAM: General: lying in bed, sedated and intubated. HEENT:NCAT, PERRLA, EOMI Neck: Supple Lungs: Bilateral diffuse coarse crepitations Heart: s1/s2, RRR Abd: soft, NT, ND, BS + Normoactive Extremities: No edema SUPERINTENDENT MAINTENANCE: sedated and limited SUPERINTENDENT MAINTENANCE exam possible. SKIN: no rash LDA: # CVC: Right internal jugular vein 23,021 Urinary Catheter Management^: Dewey: Cath Placed During This Visit: yes Reason for Continuing Indwelling Catheter: Accurate Measurement of Urinary Output in Critically Ill Patients Urinary Catheter Date of Insertion: 05/03/21 Urinary Catheter Time of Insertion: 04:08 Data Labs: Other Labs: Laboratory Results WBC 17.4 10^3/uL (4.0 -10.0) H 05/04/21 03:50 Corrected WBC Cancelled 05/03/21 11:30 RBC 4.73 10^6/uL (4.1 -5.3) 05/04/21 03:50 Hgb 14.9 g/dL (11.7-1 6.6) 05/04/21 03:50 Hct 44.8 % (42.0-52.0 ) 05/04/21 03:50 MCV 94.7 fl (80-94) H D 05/04/21 03:50 MCH 31.5 pg (28.0-34. 0) 05/04/21 03:50 MCHC 33.3 g/dL (30.0-3 6.0) D 05/04/21 03:50 RDW 13.4 % (12.1-15.1 ) 05/04/21 03:50 Plt Count 324 10^3/cmm (130 -400) 05/04/21 03:50 MPV 10.0 fL (7.4-10.4 ) 05/04/21 03:50 Gran % Cancelled 05/03/21 11:30 Neut % (Auto) 92.6 % 05/04/21 03:50 Lymph % (Auto) 5.0 % 05/04/21 03:50 [place] % (Auto) 0.9 % 05/04/21 03:50 Eos % (Auto) 0.0 % 05/04/21 03:50 Baso % (Auto) 0.2 % 05/04/21 03:50 Neut # (Auto) 16.11 10^3/uL (1. 8-7.7) H 05/04/21 03:50 Lymph # (Auto) 0.9 10^3/uL (0.8- 4.8) 05/04/21 03:50 Win[place] # (Auto) 0.2 10^3/uL (0.2- 0.9) 05/04/21 03:50 Eos # (Auto) 0.0 10^3/uL (0.0- 0.8) 05/04/21 03:50 Baso # (Auto) 0.0 10^3/uL (0.0- 0.1) 05/04/21 03:50 Absolute Gran (aut o) Cancelled 05/03/21 11:30 Nucleated RBC % (a uto) 0.4 % 05/04/21 03:50 Total Counted 100 (0-100) 05/02/21 20:10 Atypical Lymphs % 7.0 % (0-5) H 05/02/21 20:10 Absolute Neutrophi ls 12.0 10^3/cmm (1. 4-6.5) H 05/02/21 20:10 Segmented Neutroph ils 71 % 05/02/21 20:10 Abs Segm Neuts (Ma n) 11.1 10/cmm (1.6- 7.1) H 05/02/21 20:10 Band Neutrophils 6.0 % 05/02/21 20:10 Abs Band Neuts (Ma n) 0.9 10^3/cmm (0.0 -1.2) 05/02/21 20:10 Absolute Lymphocyt es 2.3 10^3/cmm (1.2 -3.4) 05/02/21 20:10 Lymphocytes (Manua l) 8 % 05/02/21 20:10 Monocytes (Manual) 1.0 % 05/02/21 20:10 Absolute Monocytes 0.2 10^3/cmm (0.1 -0.6) 05/02/21 20:10 Eosinophils (Manua l) Not Reportable 05/02/21 20:10 Basophils (Manual) Not Reportable 05/02/21 20:10 Nucleated RBCs 7.0 /100WBC (0-1) H 05/02/21 20:10 Nucleated RBCs # 0.1 /100WBC 05/04/21 03:50 Platelet Estimate Increased (Bhavani l) 05/02/21 20:10 Giant Platelets Trace 05/02/21 20:10 Polychromasia Trace 05/02/21 20:10 PT 17.40 SECONDS (12 .1-14.9) H 05/04/21 03:50 INR 1.38 (0.8-1.2) H 05/04/21 03:50 Fibrinogen 537 mg/dL (174-49 8) H 05/02/21 20:10 D-Dimer >= 20.00 ug/mIFEU (0-0.59) H 05/04/21 03:50 Specimen Type Arterial 05/04/21 05:05 Sample Site Radial, left 05/04/21 05:05 ABG pH 7.45 (7.35-7.45) 05/04/21 05:05 ABG pCO2 40.2 mmHg (35-45) 05/04/21 05:05 ABG pO2 114.0 mmHg (80.0- 100.0) H 05/04/21 05:05 ABG HCO3 27.9 mmol/L (22-2 6) H 05/04/21 05:05 ABG Base Excess 3.6 mmol/L (-2.0- 2.0) H 05/04/21 05:05 Alpesh Test Pos 05/04/21 05:05 Hematocrit 46.9 % (42-52) 05/04/21 05:05 Respiration Rate 20.0 % 05/04/21 05:05 O2 Delivery Device Vent 05/04/21 05:05 FiO2 65.0 % 05/04/21 05:05 Tidal Volume 0.48 05/04/21 05:05 PEEP 10.0 cmH20 05/04/21 05:05 Grain Elevator Clerk ID Sebastian 05/04/21 05:05 Sodium 138 mmol/L (136-1 45) 05/04/21 03:50 Potassium 4.1 mmol/L (3.5-5 .1) 05/04/21 03:50 Chloride 101 mmol/L (98-10 7) 05/04/21 03:50 Carbon Dioxide 26 mmol/L (22-29) 05/04/21 03:50 Anion Gap 15.1 (5-19) 05/04/21 03:50 BUN 46 mg/dL (8-23) H 05/04/21 03:50 Creatinine 1.2 mg/dL (0.7-1. 2) 05/04/21 03:50 GFR Calculation 61.8 mL/min (90-1 30) L 05/04/21 03:50 Glucose 226 mg/dL (65-115 ) H 05/04/21 03:50 POC Glucose 186 mg/dL (70-110 ) H 05/04/21 17:37 Estimat Average Gl ucose 143 05/03/21 11:58 Hemoglobin A1c 6.6 % (4.0-6.0) H 05/03/21 11:58 Calculated Osmolal ity 305 mOsm/kg (285- 295) H 05/04/21 03:50 Lactic Acid 7.0 mmol/L (0.5-2 .2) H* 05/02/21 20:10 Lactic Acid (Sepsi s) 3.2 mmol/L (0.5-2 .2) H 05/02/21 22:56 Lactate 2.5 mmol/L (0.5-2 .2) H 05/04/21 03:50 Calcium 7.4 mg/dL (8.5-10 .5) L 05/04/21 03:50 Phosphorus 4.0 mg/dL (2.5-4. 5) 05/04/21 03:50 Magnesium 2.8 mg/dL (1.7-2. 3) H 05/04/21 03:50 Ferritin 924 ng/mL (30-400 ) H 05/04/21 03:50 Total Bilirubin 0.8 mg/dL (0.15-1 .2) 05/04/21 03:50 AST 43 U/L (0-40) H 05/04/21 03:50 ALT 23 U/L (0-41) 05/04/21 03:50 Alkaline Phosphata se 101 IU/L (40-130) 05/04/21 03:50 Creatine Kinase 175 U/L (39-308) 05/04/21 03:50 Troponin T Baselin e 24 ng/L (0-15) H 05/03/21 05:05 Troponin T 120 Min darlene 22.98 ng/L (0-15) H 05/03/21 06:45 Delta Troponin T -1.02 ABS# (0-10) L 05/03/21 06:45 Troponin T Hi Sens 6Hr 15.29 ng/L (0-15) H 05/03/21 11:30 Troponin T Hi Sens 6Hr Delta -8.71 ng/L (0-12) L 05/03/21 11:30 C-Reactive Protein 192.5 mg/L (0.0-4 .9) H 05/04/21 03:50 NT-Pro-B Natriuret Pep 191 pg/mL (0-125) H 05/04/21 03:50 Total Protein 6.4 g/dL (6.6-8.7 ) L 05/04/21 03:50 Albumin 2.2 g/dL (3.5-5.2 ) L 05/04/21 03:50 Globulin 4.2 g/dL (1.3-4.6 ) 05/04/21 03:50 Procalcitonin 1.80 ng/mL (0-0.5 ) H 05/04/21 03:50 TSH 0.69 uIU/mL (0.27 -4.20) 05/03/21 05:05 Nasal/Oral COVID-1 9 PCR Detected H 05/03/21 18:20 SARS-CoV-2 Ag (Rap id) Negative (Negati ve) 05/03/21 00:25 Impressions Chest CTA 05/02/21 20:57 IMPRESSION: 1. No evidence for pulmonary embolus. Evaluation is limited by breathing motion artifact. 2. Diffuse ground-glass opacities, consistent with multilobar pneumonia. This pattern is indeterminate and can be seen with COVID-19 pneumonia as well as other infectious etiologies. Radiation Dose CTDIVOL = (mGy): DLP = 514.3 (mGy-cm) Chest X-Ray 05/04/21 07:00 IMPRESSION: 1. Bilateral mid lung and bilateral lower lobe interstitial and alveolar opacities, worsening on the left. Recommend followup chest imaging to insure resolution of these findings. 2. Incidental/nonacute findings are listed in the report. Micro: Micro: Microbiology 05/03/21 07:55 Gram Stain - Final Sputum - Endotrac heal Tube Aspirate Sputum Culture - P reliminary Staphylococcus aureus 05/02/21 21:15 Blood Culture - Pr eliminary Blood NEGATIVE TO RUT E 05/02/21 20:30 Blood Culture - Pr eliminary Blood NEGATIVE TO RUT E 05/03/21 08:13 Bacterial Antigens - Final Urine,Voided 05/03/21 08:12 MRSA Culture - Fin al Nose 05/03/21 08:13 Legionella Urinary Antigen - Final Urine,Voided A&P Assessment and plan (1) Acute respiratory distress syndrome (ARDS) due to 2019 novel coronavirus: Status: Acute (2) Respiratory failure with hypoxia: Status: Acute Qualifiers: Chronicity: acute Qualified Code(s): J96.01 - Acute respiratory failure with hypoxia (3) ZACHARIAH (acute kidney injury): Status: Acute (4) NSTEMI (non-ST elevated myocardial infarction): Status: Acute (5) Type 2 diabetes mellitus: Status: Acute Qualifiers: Diabetes mellitus half-way insulin use: unspecified superintendent terminal insulin use status Diabetes mellitus complication status: with other specified complication Qualified Code(s): E11.69 - Type 2 diabetes mellitus with other specified complication #Acute hypoxic respiratory failure secondary to ARDS due to COVID-19 pneumonia #Staph aureus pneumonia-sensitivity pending #Bilateral DVT and popliteal veins extending into calf veins on venous Doppler; no evidence of PE #NSTEMI type II #Deranged LFT secondary to COVID-19 pneumonia #Diabetes mellitus with A1c 6.6 -Covid PCR + 04/23/21 [facility] [place], admission 05/02/2021;Intubated 05/03/2021 -Currently intubated, sedated paralyzed and proned for first session -Taper off paralytic, Versed when patient is supine -On CMV 480/10/60 5%-7.4 5/40/114/27-Taper FiO2 to 50% -Plan is to continue proning sessions and evaluate after each proning session if he requires further sessions -Currently on remdesivir and dexamethasone; -Baricitinib held due to ongoing active infection -Hypoxia complicated by bilateral DVT and staph pneumonia; CTA ruled out PE -On therapeutic Lovenox for bilateral DVT -Sputum cultures positive for staph aureus-sensitivity pending, procalcitonin 1.80, DC Rocephin/azithromycin and start patient on vancomycin for staph aureus until culture sensitivity pending -Troponin elevation-likely NSTEMI type II-continue telemetry monitoring; echo normal LV function with EF 55%. Moderate aortic valve calcification. -Monitor input output and try to keep net negative to even fluid balance; monitor electrolytes and supplement as necessary -Deranged LFTs due to COVID-19 pneumonia-monitor and avoid hepatotoxic medications -A1c 6.6-possible newly diagnosed diabetes-sugars controlled with scale coverage -Start tube feeding when patient is supine and do not go more than 30 mL/h, stop feeding at least 2 to 3 hours prior to next proning session to avoid aspiration -Start bowel regimen senna docusate 2 tabs twice daily -DVT prophylaxis: On therapeutic Lovenox for DVT -GI prophylaxis PPI -Full code -Family updated Recommendations conveyed to hospitalist, RN, RT taking care of the patient Consult Attestations Medical Necessity Statement: Gram-positive patella secondary to ARDS due to COVID-19 pneumonia-requiring mechanical ventilation complicated by bilateral DVT and staph aureus pneumonia Time Spent in Patient Care: Greater than 35 minutes (>than 50% of time spent in counselling and/or direct pt care on unit) . Critical Care Time: The high probability of a clinically significant, sudden or life threatening deterioration of the patient's [pulmonary, vascular, endocrine] system(s) required my full and direct attention, intervention and personal management. The critical care time is as shown. This time is in addition to time spent performing any reported procedures but includes the following: [x] Data and vital sign review and interpretation [x] Patient assessment, examination and intervention [x] Documentation [x] Medication orders and management Coding Level of Care Code New Pt Acute Recordak Operator for Chg Fwd Patient Type New History Comprehensive Exam Comprehensive Medical Decision Making High Complexity Diagnoses Acute respiratory distress syndrome (ARDS) due to 2019 novel coronavirus U07.1; J80 Respiratory failure with hypoxia J96.01 Chronicity: acute ZACHARIAH (acute kidney injury) N17.9 NSTEMI (non-ST elevated myocardial infarction) I21.4 Type 2 diabetes mellitus E11.69 Diabetes mellitus superintendent terminal insulin use: unspecified superintendent terminal insulin use status Diabetes mellitus complication status: with other specified complication Time Spent (min) 45
--- NOTE | 2021-05-04 11:19 | PM.PN ---
Subjective Subjective: Interval history: Patient was seen this morning, he is currently in his proning session, no fevers overnight, he on 50% FiO2, good urine output, normotensive, off Levophed, Vitals/I&O/Wt Last Vital Signs Temp 98.2 F 05/04/21 04:00 Pulse 72 05/04/21 08:42 Resp 20 H 05/04/21 09:47 BP 112/71 05/04/21 05:30 Pulse Ox 94 05/04/21 09:47 05/03/21 05/04/21 05/04/21 22:59 06:59 14:59 Intake Total 171.446 / 927.665 248.369 / 1176.034 388.25 / 388.25 Output Total 1400 / 1400 850 / 2250 Balance -1228.554 / -472.335 -601.631 / -1073.966 388.25 / 388.25 Weight last 48 hrs Weight 81.647 kg Physical Exam Narrative: EXAM NARRATIVE: Currently in prone positioning, intubated, sedated Resp: COMMON NORMALS: normal respiratory effort, No retractions, No use of accessory muscles and clear to auscultation bilaterally AUSCULTATION: clear to auscultation bilaterally Cardio: COMMON NORMALS: regular rate, regular rhythm, S1 normal heart sound present and S2 normal heart sound present RATE: regular rate RHYTHM: regular rhythm HEART SOUNDS: S1 normal heart sound present and S2 normal heart sound present GI: COMMON NORMALS: Normal to inspection, nondistended, normoactive bowel sounds present and Soft to palpation PALPATION: Yes Soft to palpation Extremity: COMMON NORMALS: no pedal edema Urinary Catheter Management^: Dewey: Cath Placed During This Visit: yes Reason for Continuing Indwelling Catheter: Accurate Measurement of Urinary Output in Critically Ill Patients Urinary Catheter Date of Insertion: 05/03/21 Urinary Catheter Time of Insertion: 04:08 Data : 05/04/21 03:50 05/04/21 03:50 Micro: Microbiology 05/03/21 07:55 Gram Stain - Final Sputum - Endotracheal Tube Aspirate Sputum Culture - Preliminary Staphylococcus aureus 05/02/21 21:15 Blood Culture - Preliminary Blood NEGATIVE TO DATE 05/02/21 20:30 Blood Culture - Preliminary Blood NEGATIVE TO DATE 05/03/21 08:13 Bacterial Antigens - Final Urine,Voided 05/03/21 08:12 MRSA Culture - Final Nose 05/03/21 08:13 Legionella Urinary Antigen - Final Urine,Voided A&P Assessment and plan (1) Pneumonia due to 2019-nCoV: Acute hypoxic respiratory failure secondary to COVID-19 pneumonia, with acute respiratory distress syndrome -CT angiogram negative for pulmonary emboli Plan -Currently in the ICU -For now continue fentanyl, Versed for sedation, can add on propofol -Continue ventilation, pH 7.45, PCO2 40.2, PO2 114, on 65% FiO2, tidal volume 480, PEEP of 10 -Currently prone and paralyzed with Nimbex, will do 3 sessions -When supine, start tube feedings -Start Pulmicort 10 cc an hour, free water flushes 100 cc every 4 hours -Maintain MAP greater than 65, Levophed as needed -Continue broad-spectrum antibiotic therapy Rocephin and azithromycin -Continue remdesivir -baricitinib -Continue Decadron -Low-dose sliding scale -Protonix for GI prophylaxis -Lovenox for DVT prophylaxis -Full code -Rapid Covid was negative, follow-up Covid PCR follow blood cultures, sputum cultures, urine bacterial antigens bilateral DVTs in both popliteal veins extending into the calf veins, on therapeutic Lovenox Sepsis, secondary to COVID-19 pneumonia as above ZACHARIAH secondary to sepsis, COVID-19 pneumonia as above NSTEMI, likely type II NSTEMI, supply demand ischemia from COVID-19 pneumonia as above, respiratory failure, continue telemetry monitoring, order cardiac echocardiogram Type 2 diabetes mellitus, insulin sliding scale Status: Acute (2) Respiratory failure with hypoxia: Status: Acute Qualifiers: Chronicity: acute Qualified Code(s): J96.01 - Acute respiratory failure with hypoxia (3) ARDS (adult respiratory distress syndrome): Status: Acute (4) Type 2 diabetes mellitus: Status: Acute (5) Sepsis: Status: Acute (6) ZACHARIAH (acute kidney injury): Status: Acute (7) NSTEMI (non-ST elevated myocardial infarction): Status: Acute Attestations Medical Necessity Statement*: Patient requires hospitalization for pneumonia secondary COVID-19 Coding Level of Care Code Acute Golf Course Equipment Operator for [facility] Tanvir Diagnoses Pneumonia due to 2019-nCoV U07.1; J12.82 Respiratory failure with hypoxia J96.01 Chronicity: acute ARDS (adult respiratory distress syndrome) J80 Type 2 diabetes mellitus E11.9 Sepsis A41.9 ZACHARIAH (acute kidney injury) N17.9 NSTEMI (non-ST elevated myocardial infarction) I21.4
--- NOTE | 2021-05-04 11:58 | PC.NUTR ---
Tube feed: current orders will provide 120kcal, 263 mL H2O, and 5g protein/day. Beneficial for gut stimulation, but unable to meet estimated needs. Nurse states higher rate while supine could increase risk of vomiting while proned. When proning sessions complete, recommend to increase by 10 mL/hr q8h until goal rate of 45mL/hr [facility]. Continue free H2O flushes of 100mL q4h. Would provide 1,620 kcal (93% of daily needs), 68g protein, and 1,448 mL H2O. See full RD assessment for further details.
[2021-05-04 12:11] LABS: Glucose Point of Care 188 mg/dL (70-110)
--- NOTE | 2021-05-04 14:30 | PC.RESP ---
RT Shift Note Frequent safety and respiratory rounds continue. Orders completed as indicated. Patient monitored pre and post treatments throughout shift. Patient [Did] tolerate treatments appropriately. Condition [I.DidNotChange]. Patient and/or outside energy sales representatives educated on respiratory treatment and medications. Patient and/or outside energy sales representatives [verbalized understanding]. Will continue to monitor patient progress.
[2021-05-04 14:55] LABS: Coronavirus Test Green County Detected
--- NOTE | 2021-05-04 15:12 | PC.CHAP ---
Pastoral Care Encounter/Spiritual Assessment Type of Contact [] Declined lathe sander visit [] Patient/Family/Request visit [] Outpatient visit [] Follow-up visit [] Physician referral [] Code/Alert [] Routine visit [] Staff referral [] Actively dying [] Patient sleeping [] Family support [] [] Out of room [] Palliative care [] [] Receiving care in room [] Pre-surgical visit [] Trauma [] Long length of stay [xx] ICU visit [] Other: Relational/Emotional Strength [] Patient feels connected with others/family/visitors/staff [] Distress [] Loneliness/isolation [] Abandonment Spirituality of Patient [] Person of Shaila [] Attends Oriental Orthodox of their Shaila [] Believes in Prayer [] Reads Bible or Taoism materials [] There are Spiritual issues to be addressed Surveillance Supervisor Interventions [xx] Prayer [] Active listening [] Non-anxious presence [] Spiritual/emotional support [] Crisis/trauma care [] Spiritual counseling [] Bereavement support [] Provided bereavement packet [] Provided Bible/devotional materials [] Provided toy/stuffed animal, coloring book to patient or family member [] Provided Communion [] Anointing/Montalba [] Salvation [] Completed spiritual assessment [] Other: Impact on Illness or Injury [] Angry [] Fearful [] Anxious [] Often cries [] Exhaustion [] Unable to work [] Unable to attend restorationism [] Unable to walk/stand [] Unable to read [] Unable to drive [] Unable to eat/drink [] Unable to sleep [] Unable to be with family [] Patient intubated [] Other: Summary Patient isolated with covid-19. Surveillance Supervisor prayed outside room. Time spent with patient 2 minutes
[2021-05-04] MEDS: cisatracurium 100 MG in sodium chloride 0.9% 50 ML 6.86 MG IV (16:12)
[2021-05-04] MEDS: vancomycin 1,250 MG/250 ML PIGGYBACK 200 MG IV (16:13)
[2021-05-04] MEDS: cefepime 2,000 MG in sodium chloride 0.9% (plus) 50 ML 100 MG IV (16:13)
--- NOTE | 2021-05-04 17:30 | PC.NURSE ---
0800: BIS 39 TOF 4/4, pt compliant with vent. 1000: BIS 40. TOF 4/4, pt remains vent compliant. 1200: BIS 56 TOF 4/4 pt remians vent compliant 1400: BIS 46 TOF 4/4. NO change 1600: BIS 44 TOF 4/4 NO change. 1720: Pt turned, to supin. Nimbex and Versed off. Fentanyl at 25mcg/hr as ordered.
[2021-05-04 17:41] LABS: Glucose Point of Care 186 mg/dL (70-110)
[2021-05-04] MEDS: remdesivir 100 MG in sodium chloride 0.9% (100 ml) 80 ML IV (17:50)
--- NOTE | 2021-05-04 19:29 | PC.NURSE ---
Shift Note Pt remains intubated and sedated. NImbex and Versed off at this time.. Fentanyl infusing at 25mcg/hr. Pt had first proning session today. back to supine at 1715. Tube feeding started. Updated son Ryan once, updated Carline Isaac family friend twice this shift. Frequent safety and comfort rounds continue. Orders and/or nursing care completed as indicated. Patient monitored for response to intervention and treatment(s). Education provided includes Fentanyl, Nimbex, Versed, and Proning, . Patient and/or sales representative publications verbalized understanding. But further questions revealed reinforcement needed. Will continue to monitor.
[2021-05-05] VITALS (47 sets, daily range): BP systolic 102–138; BP diastolic 56–87; PULSE 51–112; RESP 18–24; TEMP 36.2–36.8; O2SAT 90–97
[2021-05-05] MEDS: ipratropium-albuterol 3 mL Neb INHALATION ×4 (02:14→20:08)
[2021-05-05] MEDS: cefepime 2,000 MG in sodium chloride 0.9% (plus) 50 ML 100 MG IV (02:58)
[2021-05-05 05:00] LABS: ABG PCO2 46.9 mmHg (35-45); Arterial Blood Gas Hematocrit 51.7 % (42-52); Base Excess ABG 3.1 mmol/L (-2.0-2.0); Blood Gas Allen Test Pos; Blood Gas Sample Type Arterial; HCO3 ABG 28.9 mmol/L (22-26)
[2021-05-05 05:02] LABS: Blood Gas Sample Site Radial, right; Blood Gas Tidal Volume 0.48; Oxygen Device VENT
[2021-05-05 05:41] LABS: INR 1.46 (0.8-1.2)
[2021-05-05 05:50] LABS: Lactate (Lactic Acid level) 2.3 mmol/L (0.5-2.2); Magnesium 3.2 mg/dL (1.7-2.3); Phosphorus 4.3 mg/dL (2.5-4.5)
[2021-05-05 06:00] LABS: NT Pro B Type Natriuretic Pept 165 pg/mL (0-125); Procalcitonin 1.05 ng/mL (0-0.5)
--- NOTE | 2021-05-05 06:00 | ECG_ITS ---
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 Measurements Intervals [place] Rate: 74 P: 48 TX: 138 QRS: 33 QRSD: 92 T: 19 QT: 415 QTc: 462 Interpretive Statements SINUS RHYTHM PROBABLE SEPTAL MYOCARDIAL INFARCTION , PROBABLY OLD [35 ms Q WAVE IN V1/V2] Compared to ECG 05/04/2021 04:04:09 Incomplete right bundle-branch block no longer present Myocardial infarct finding still present Electronically Signed On 05-05-2021 21:13:58 CDT by Ed Alicea M.D. [id number]
[2021-05-05 06:12] LABS: Ferritin 732 ng/mL (30-400)
[2021-05-05 06:14] LABS: Creatine Phosphokinase 763 U/L (39-308)
[2021-05-05] MEDS: dexamethasone 4 mg/mL INJ 6 MG IVP (06:16)
[2021-05-05] MEDS: enoxaparin 80 mg/0.8 mL Syringe SUBCUT ×2 (06:16→18:25)
[2021-05-05] MEDS: pantoprazole 40 mg SDV IVP ×2 (06:17→18:25)
--- NOTE | 2021-05-05 06:29 | PC.NURSE ---
Patient remained stable, afebrile, throughout shift. Prone cycle #2, proned at 0200. Resumed nimbex, and versed approx 1 hour prior to proning. Patient tolerated proning well with no adverse reactions. Versed, nimbex, and fentanyl gtt titrated as needed per protocol. Repositioned and oral care done Q2.Will continue to monitor. 0200: TOF: 3/4, BIS: 43 0400: TOF: 1/4, BIS: 40 0600: TOF: 2/4, BIS: 44
--- NOTE | 2021-05-05 07:00 | XRR_ITS ---
PROCEDURE INFORMATION: Exam: XR Chest Exam date and time: 05/05/2021 7:00 AM Age: 61 years old Clinical indication: Shortness of breath; Additional info: SOB TECHNIQUE: Imaging protocol: XR of the chest. Views: 1 view. Total images: 2 COMPARISON: CR (CHEST, ) 05/04/2021 6:00 PM FINDINGS: Tubes, catheters and devices: Tubes and catheters are unchanged from the prior exam. Lungs: Bilateral pulmonary opacities are again noted with the right-sided opacities showing interval worsening. Pleural spaces: Unremarkable. No pleural effusion. No pneumothorax. Heart/Mediastinum: Heart size is stable when compared to the prior exam. Bones/joints: Osseous structures are unchanged from the prior exam. XR/XR chest 1V portable [id number] IMPRESSION: 1. Tubes and catheters are unchanged from the prior exam. 2. Bilateral pulmonary opacities are again noted with the right-sided opacities showing interval worsening.
--- NOTE | 2021-05-05 08:00 | PC.NURSE ---
BIS 48. TOF 4/4 Left eyebrow. Respirations 20, pt compliant with vent.
[2021-05-05 08:03] LABS: Glucose Point of Care 167 mg/dL (70-110)
[2021-05-05] MEDS: cholecalciferol (vitamin D3) 1,000 unit Tablet 1000 UNIT PO (08:43)
[2021-05-05] MEDS: zinc gluconate 50 mg Tablet PO (08:43)
[2021-05-05] MEDS: ascorbic acid 500 mg Tablet PO ×2 (08:43→18:25)
[2021-05-05] MEDS: chlorhexidine gluconate 0.12% Btl 473 mL 15 ML MUCOUS MEM ×2 (08:46→18:26)
[2021-05-05] MEDS: budesonide 0.5 mg/2 mL Neb INHALATION ×2 (08:47→20:08)
--- NOTE | 2021-05-05 08:50 | PC.NURSE ---
RT at bedside. Pt pulled up further in bed, for better tube placements while remaining proned. BIS 55 increased to 72. Pt bit ETT, and breathing 'over vent. Fentanyl and Nimbex increased, see MAR.
[2021-05-05 08:58] LABS: Basophils % 0.1 %; Hematocrit 43.8 % (42.0-52.0); Hemoglobin 13.9 g/dL (11.7-16.6); Lymphocytes # 0.4 10^3/uL (0.8-4.8); Lymphocytes % 2.4 %; Mean Corpuscular HGB Conc 31.7 g/dL (30.0-36.0); Mean Corpuscular Hemoglobin 31.2 pg (28.0-34.0); Mean Corpuscular Volume 98.2 fl (80-94); Mean Platelet Volume 10.1 fL (7.4-10.4); Monocytes # 0.2 10^3/uL (0.2-0.9); Monocytes % 1.2 %; Neutrophils # 14.03 10^3/uL (1.8-7.7); Neutrophils % 94.9 %; Nucleated Red Blood Cells % 0.1 %; Platelet Count 311 10^3/cmm (130-400); Red Blood Count 4.46 10^6/uL (4.1-5.3); Red Cell Distribution Width 14.7 % (12.1-15.1); White Blood Count 14.8 10^3/uL (4.0-10.0)
[2021-05-05 09:27] LABS: Alanine Aminotransferase 28 U/L (0-41); Albumin Level 1.9 g/dL (3.5-5.2); Alkaline Phosphatase 175 IU/L (40-130); Anion Gap 9.9 (5-19); Aspartate Amino Transferase 65 U/L (0-40); Blood Urea Nitrogen 43 mg/dL (8-23); Calcium 7.6 mg/dL (8.5-10.5); Carbon Dioxide 29 mmol/L (22-29); Chloride 106 mmol/L (98-107); Globulin 4.2 g/dL (1.3-4.6); Glomerular Filtration Rate 68.3 mL/min (90-130); Glucose 199 mg/dL (65-115); Osmolality Calculated 306 mOsm/kg (285-295); Potassium 4.9 mmol/L (3.5-5.1); Sodium 140 mmol/L (136-145); Total Bilirubin 0.7 mg/dL (0.15-1.2); Total Protein 6.1 g/dL (6.6-8.7)
--- NOTE | 2021-05-05 09:28 | PC.NURSE ---
BIS 55. Respirations 21, pt still breathing over vent. Nimbex increased, see MAR.
[2021-05-05] MEDS: vancomycin 1,250 MG/250 ML PIGGYBACK 200 MG IV (10:03)
[2021-05-05] MEDS: FUROsemide 10 mg/mL SDV 4mL 40 MG IVP (11:40)
[2021-05-05 11:43] LABS: Glucose Point of Care 142 mg/dL (70-110)
[2021-05-05 11:43] LABS: Glucose Point of Care 200 mg/dL (70-110)
--- NOTE | 2021-05-05 12:00 | PC.NURSE ---
BIS 46. TOF 4/4, RR 20, vent compliant.
--- NOTE | 2021-05-05 13:00 | PC.NURSE ---
Dewey: Urine leaking around cath, unable to record accurate amount prior to noon, Recorded estimated amount of 250ml. Removed. Replaced with 18 lao catheter., attached to previous drainage bag. Sterile technique and hand hygiene observed. Dr Rodarte notified.
--- NOTE | 2021-05-05 14:00 | PC.NURSE ---
BIS 52. TOF 4/4 . RR 20, vent compliant
--- NOTE | 2021-05-05 14:20 | P.PN_ITS ---
Subjective Subjective: Interval history: Currently patient is undergoing prone positioning, is currently off pressors, decreased urine output, due to leak around Dewey catheter, replace, 800 urine output immediately after, FiO2 60%, afebrile overnight normotensive Vitals/I&O/Wt Last Vital Signs Temp 97.8 F 05/05/21 12:30 Pulse 77 05/05/21 12:30 Resp 20 H 05/05/21 12:30 BP 129/87 05/05/21 12:30 Pulse Ox 95 05/05/21 11:46 05/04/21 05/05/21 05/05/21 22:59 06:59 14:59 Intake Total 622.780 / 1199.801 372.369 / 1572.170 126.756 / 126.756 Output Total 600 / 600 250 / 850 1050 / 1050 Balance 22.780 / 599.801 122.369 / 722.170 -923.244 / -923.244 Physical Exam Narrative: EXAM NARRATIVE: Currently in prone positioning, intubated, sedated Const: COMMON NORMALS: no acute distress Resp: COMMON NORMALS: normal respiratory effort, No retractions, No use of accessory muscles and clear to auscultation bilaterally AUSCULTATION: clear to auscultation bilaterally Cardio: COMMON NORMALS: regular rate, regular rhythm, S1 normal heart sound present and S2 normal heart sound present RATE: regular rate RHYTHM: regular rhythm HEART SOUNDS: S1 normal heart sound present and S2 normal heart sound present GI: COMMON NORMALS: Normal to inspection, nondistended, normoactive bowel sounds present and Soft to palpation PALPATION: Yes Soft to palpation Extremity: COMMON NORMALS: no pedal edema Urinary Catheter Management^: Dewey: Cath Placed During This Visit: yes, but has since been removed by the nurse Reason for Continuing Indwelling Catheter: Accurate Measurement of Urinary Output in Critically Ill Patients Urinary Catheter Date of Insertion: 05/05/21 Urinary Catheter Time of Insertion: 12:47 Date Urinary Catheter Removed: 05/05/21 Time Urinary Catheter Discontinued: 12:45 Data : 05/05/21 08:39 05/05/21 08:39 Micro: Microbiology 05/03/21 07:55 Gram Stain - Final Sputum - Endotracheal Tube Aspirate Sputum Culture - Final Staphylococcus aureus A&P Assessment and plan (1) Pneumonia due to 2019-nCoV: Acute hypoxic respiratory failure secondary to COVID-19 pneumonia, with acute respiratory distress syndrome -CT angiogram negative for pulmonary emboli Plan -Currently in the ICU -For now continue fentanyl, Versed for sedation, can add on propofol -Continue ventilation, pH 7.4, PO2's 170, bicarb 20.9, PCO2 46.9, on 80% FiO2, tidal volume 480, PEEP of 10 -Currently prone and paralyzed with Nimbex, currently in second session, will do 3 sessions -When supine, start tube feedings, when supine minimal sedation, guideline fentanyl under 20 -Start Pulmicort 10 cc an hour, free water flushes 100 cc every 4 hours -Maintain MAP greater than 65, Levophed as needed -Continue broad-spectrum antibiotic therapy vancomycin and Zosyn, will consider de-escalating vancomycin based on sputum culture -Sputum culture showing staph aureus, MRSA nares negative -Continue remdesivir -baricitinib discontinued given sputum culture results -1 dose of Lasix today -Continue Decadron -Low-dose sliding scale -Protonix for GI prophylaxis -Therapeutic Lovenox for DVT prophylaxis -Full code bilateral DVTs in both popliteal veins extending into the calf veins, on therapeutic Lovenox Sepsis, resolved, secondary to COVID-19 pneumonia as above ZACHARIAH secondary to sepsis, COVID-19 pneumonia as above NSTEMI, likely type II NSTEMI, supply demand ischemia from COVID-19 pneumonia as above, respiratory failure, continue telemetry monitoring, order cardiac echocardiogram Type 2 diabetes mellitus, insulin sliding scale Status: Acute (2) Respiratory failure with hypoxia: Status: Acute Qualifiers: Chronicity: acute Qualified Code(s): J96.01 - Acute respiratory failure with hypoxia (3) ARDS (adult respiratory distress syndrome): Status: Acute (4) Type 2 diabetes mellitus: Status: Acute Qualifiers: 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 insulin 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: unspecified senior care insulin use status Diabetes mellitus complication status: with other specified co mplication Qualified Code(s): E11.69 - Type 2 diabetes mellitus with other specified complication (5) Sepsis: Status: Acute (6) ZACHARIAH (acute kidney injury): Status: Acute (7) NSTEMI (non-ST elevated myocardial infarction): Status: Acute Attestations Medical Necessity Statement*: Patient requires hospitalization for acute hypoxic respiratory failure secondary to COVID-19 pneumonia with acute respiratory distress syndrome Coding Level of Care Code Acute Historian Research Assistant for g Fwd Diagnoses Pneumonia due to 2019-nCoV U07.1; J12.82 Respiratory failure with hypoxia J96.01 Chronicity: acute ARDS (adult respiratory distress syndrome) J80 Type 2 diabetes mellitus E11.69 Diabetes mellitus senior care insulin use: unspecified senior care insulin use status Diabetes mellitus complication status: with other specified complication Sepsis A41.9 ZACHARIAH (acute kidney injury) N17.9 NSTEMI (non-ST elevated myocardial infarction) I21.4
[2021-05-05] MEDS: piperacillin-tazobactam 3.375 GM in sodium chloride 0.9% (plus) 50 ML IV ×2 (14:22→23:25)
--- NOTE | 2021-05-05 15:04 | PC.RESP ---
RT Shift Note Frequent safety and respiratory rounds continue. Orders completed as indicated. Patient monitored pre and post treatments throughout shift. Patient [Did.] tolerate treatments appropriately. Condition [.DidNotChange]. Patient and/or pharmaceutical service representative educated on respiratory treatment and medications. Patient and/or pharmaceutical service representative unable to comprehend Will continue to monitor patient progress.
[2021-05-05 18:08] LABS: Glucose Point of Care 190 mg/dL (70-110)
--- NOTE | 2021-05-05 18:15 | PC.NURSE ---
Bradycardia: Dr Rodarte notified of heart rate 48-56. SBP 120. Per Dr Rodarte no need for atropine as pt is not hypotensive.
[2021-05-05] MEDS: remdesivir 100 MG in sodium chloride 0.9% (100 ml) 80 ML IV (18:25)
--- NOTE | 2021-05-05 19:45 | PC.NURSE ---
Shift Note:Pt remians intubated and sedated. Finished second proning session at 1600 today. Fentanyl at 25mcg/hr and Nimbex and versed off.. Tube feeding restarted. He has a new skin tear on right shoulder. He received Lasix and albumin today, he had a urine output of 2250. Updated family friend Carline Gray, twice today on pt's progress, DVT, Proning and medications. Frequent safety and comfort rounds continue. Orders and/or nursing care completed as indicated. Patient monitored for response to intervention and treatment(s). Education provided includes proning, DVT, Fentanyl, Versed, Lasix, Albumin and Nimbex. Patient distribution sales representative verbalized understanding. She relayed that she was hard of hearing, as she repeated questions a few times. Clarification of answered provided. . Will continue to monitor.
[2021-05-05] MEDS: cisatracurium 100 MG in sodium chloride 0.9% 50 ML IV (23:25)
[2021-05-06] VITALS (38 sets, daily range): BP systolic 106–167; BP diastolic 62–94; PULSE 39–91; RESP 20–22; TEMP 36.1–36.7; O2SAT 92–98
[2021-05-06] MEDS: ipratropium-albuterol 3 mL Neb INHALATION ×4 (03:00→20:03)
[2021-05-06] MEDS: vancomycin 1,250 MG/250 ML PIGGYBACK 200 MG IV (04:06)
[2021-05-06 04:13] LABS: INR 1.54 (0.8-1.2)
[2021-05-06 04:19] LABS: Vancomycin Trough 15.7 ug/mL (10-15)
[2021-05-06 04:23] LABS: Lactate (Lactic Acid level) 1.9 mmol/L (0.5-2.2); Magnesium 3.1 mg/dL (1.7-2.3); Phosphorus 3.8 mg/dL (2.5-4.5)
[2021-05-06 04:35] LABS: NT Pro B Type Natriuretic Pept 544 pg/mL (0-125); Procalcitonin 0.77 ng/mL (0-0.5)
[2021-05-06 04:44] LABS: Basophils % 0.1 %; Hematocrit 39.5 % (42.0-52.0); Hemoglobin 12.6 g/dL (11.7-16.6); Lymphocytes # 0.4 10^3/uL (0.8-4.8); Mean Corpuscular HGB Conc 31.9 g/dL (30.0-36.0); Mean Corpuscular Hemoglobin 31.8 pg (28.0-34.0); Mean Corpuscular Volume 99.7 fl (80-94); Mean Platelet Volume 10.3 fL (7.4-10.4); Monocytes # 0.3 10^3/uL (0.2-0.9); Monocytes % 2.1 %; Neutrophils # 11.94 10^3/uL (1.8-7.7); Neutrophils % 93.4 %; Nucleated Red Blood Cells % 0 %; Platelet Count 289 10^3/cmm (130-400); Red Blood Count 3.96 10^6/uL (4.1-5.3); Red Cell Distribution Width 14.8 % (12.1-15.1); White Blood Count 12.8 10^3/uL (4.0-10.0)
[2021-05-06 04:46] LABS: Ferritin 585 ng/mL (30-400)
[2021-05-06 04:53] LABS: Creatine Phosphokinase 443 U/L (39-308)
[2021-05-06 05:00] LABS: ABG PCO2 39.9 mmHg (35-45); ABG PH Result 7.48 (7.35-7.45); Arterial Blood Gas Hematocrit 39.6 % (42-52); Base Excess ABG 5.6 mmol/L (-2.0-2.0); Blood Gas Allen Test Pos; Blood Gas Operator Identificat JB; Blood Gas Sample Site Radial, right; Blood Gas Sample Type Arterial; HCO3 ABG 29.6 mmol/L (22-26); Oxygen Device VENT
[2021-05-06 05:01] LABS: Blood Gas Tidal Volume 0.48
[2021-05-06 05:01] LABS: Alanine Aminotransferase 25 U/L (0-41); Albumin Level 2.7 g/dL (3.5-5.2); Alkaline Phosphatase 106 IU/L (40-130); Anion Gap 15.7 (5-19); Aspartate Amino Transferase 53 U/L (0-40); Blood Urea Nitrogen 54 mg/dL (8-23); Calcium 8.1 mg/dL (8.5-10.5); Carbon Dioxide 27 mmol/L (22-29); Chloride 106 mmol/L (98-107); Globulin 3.6 g/dL (1.3-4.6); Glomerular Filtration Rate 56.3 mL/min (90-130); Glucose 191 mg/dL (65-115); Osmolality Calculated 318 mOsm/kg (285-295); Potassium 4.7 mmol/L (3.5-5.1); Sodium 144 mmol/L (136-145); Total Bilirubin 0.8 mg/dL (0.15-1.2); Total Protein 6.3 g/dL (6.6-8.7)
--- NOTE | 2021-05-06 06:00 | XRR_ITS ---
PROCEDURE INFORMATION: Exam: XR Chest Exam date and time: 05/06/2021 6:00 AM Age: 61 years old Clinical indication: Device placement; Ett placement (vent status); Patient HX: Covid +, PT prone, intubated; Additional info: SOB TECHNIQUE: Imaging protocol: XR of the chest. Views: 1 view. COMPARISON: CR (CHEST, ) 05/05/2021 5:47 AM FINDINGS: Tubes, catheters and devices: A tracheostomy tube is present with the tip 3.5 cm above the ida. A right jugular venous catheter tip projects on the SVC. It an orogastric tube extends into the stomach. Lungs: There worsening extensive diffuse bilateral pulmonary infiltrates. Pleural spaces: Unremarkable. No pleural effusion. No pneumothorax. Heart/Mediastinum: Unremarkable. No cardiomegaly. Bones/joints: Unremarkable. XR/XR chest 1V portable [id number] IMPRESSION: 1. Satisfactory position of the endotracheal tube, orogastric tube and central venous catheter. 2. Worsening extensive diffuse bilateral pulmonary infiltrates.
--- NOTE | 2021-05-06 06:00 | ECG_ITS ---
[facility] Test Date: 2021-05-06 Pat Name: Alpesh Guajardo Department: Room: ICU06 Gender: Male Finance Director: : 1960 Requested By: Carlos A Rodarte Order Number: [id number] Rosa MD: Ed Alicea M.D. Measurements Intervals [place] Rate: 40 P: 42 VA: 132 QRS: 38 QRSD: 100 T: 35 QT: 574 QTc: 474 Interpretive Statements SINUS BRADYCARDIA POSSIBLE RIGHT VENTRICULAR CONDUCTION DELAY [RSR (QR) IN V1/V2] ANTEROSEPTAL MYOCARDIAL INFARCTION , OF INDETERMINATE AGE [40+ ms Q WAVE IN V1-V4] PROLONGED QT INTERVAL Compared to ECG 05/05/2021 05:20:07 Prolonged QT interval now present Sinus rhythm no longer present Myocardial infarct finding still present Electronically Signed On 05-06-2021 21:49:38 CDT by Ed Alicea M.D. [id number]
[2021-05-06] MEDS: piperacillin-tazobactam 3.375 GM in sodium chloride 0.9% (plus) 50 ML IV ×3 (06:11→23:08)
[2021-05-06] MEDS: pantoprazole 40 mg SDV IVP ×2 (06:11→18:05)
[2021-05-06] MEDS: dexamethasone 4 mg/mL INJ 6 MG IVP (06:11)
[2021-05-06] MEDS: enoxaparin 80 mg/0.8 mL Syringe SUBCUT ×2 (06:11→18:07)
[2021-05-06] MEDS: sodium chloride 0.9% (plus) 50 ML 12.5 ML (06:12)
--- NOTE | 2021-05-06 06:31 | PC.NURSE ---
Patient remained stable, afebrile, throughout shift. Prone cycle #3, proned at 0100. Resumed nimbex, and versed approx 1 hour prior to proning. Patient tolerated proning well with no adverse reactions. Versed, nimbex, and fentanyl gtt titrated as needed per protocol. Repositioned and oral care done Q2. Patient had increase bradycardia throughout shift, otherwise vitals remain stable. Will continue to monitor. 0200: TOF: 3/4, BIS: 48 0400: TOF: 4/4, BIS: 62 0600: TOF: 2/4, BIS: 40
[2021-05-06 08:06] LABS: Glucose Point of Care 184 mg/dL (70-110)
[2021-05-06] MEDS: budesonide 0.5 mg/2 mL Neb INHALATION ×2 (08:43→20:03)
--- NOTE | 2021-05-06 08:58 | PC.NURSE ---
Plan of care edited to reflect surge charting.
[2021-05-06] MEDS: ascorbic acid 500 mg Tablet PO ×2 (09:23→18:04)
[2021-05-06] MEDS: zinc gluconate 50 mg Tablet PO (09:23)
[2021-05-06] MEDS: cholecalciferol (vitamin D3) 1,000 unit Tablet 1000 UNIT PO (09:23)
[2021-05-06] MEDS: chlorhexidine gluconate 0.12% Btl 473 mL 15 ML MUCOUS MEM ×2 (09:34→18:36)
--- NOTE | 2021-05-06 10:56 | PM.PN ---
Subjective Subjective: Interval history: Patient was seen this morning, he is currently prone, paralyzed, remains normotensive, afebrile, on 65% FiO2, he did have sinus bradycardia overnight, no hypotensive episodes, no arrhythmia events, Vitals/I&O/Wt Last Vital Signs Temp 97.8 F 05/06/21 08:00 Pulse 41 L 05/06/21 08:45 Resp 20 H 05/06/21 10:41 BP 136/64 05/06/21 08:00 Pulse Ox 95 05/06/21 10:41 05/05/21 05/06/21 05/06/21 22:59 06:59 14:59 Intake Total 470.275 / 872.631 562.108 / 1434.739 100 / 100 Output Total 450 / 2250 800 / 3050 Balance 20.275 / -1377.369 -237.892 / -1615.261 100 / 100 Physical Exam Narrative: EXAM NARRATIVE: Prone, paralyzed, sedated Const: COMMON NORMALS: no acute distress Resp: COMMON NORMALS: normal respiratory effort, No retractions, No use of accessory muscles and clear to auscultation bilaterally AUSCULTATION: clear to auscultation bilaterally Cardio: COMMON NORMALS: regular rate, regular rhythm, S1 normal heart sound present and S2 normal heart sound present RATE: regular rate RHYTHM: regular rhythm HEART SOUNDS: S1 normal heart sound present and S2 normal heart sound present GI: COMMON NORMALS: Normal to inspection, nondistended, normoactive bowel sounds present and Soft to palpation PALPATION: Yes Soft to palpation Extremity: COMMON NORMALS: no pedal edema Urinary Catheter Management^: Dewey: Cath Placed During This Visit: yes, but has since been removed by the nurse Reason for Continuing Indwelling Catheter: Accurate Measurement of Urinary Output in Critically Ill Patients Urinary Catheter Date of Insertion: 05/05/21 Urinary Catheter Time of Insertion: 12:47 Date Urinary Catheter Removed: 05/05/21 Time Urinary Catheter Discontinued: 12:45 Data : 05/06/21 03:02 05/06/21 02:55 Micro: Microbiology 05/03/21 07:55 Gram Stain - Final Sputum - Endotracheal Tube Aspirate Sputum Culture - Final Staphylococcus aureus A&P Assessment and plan (1) Pneumonia due to 2019-nCoV: Acute hypoxic respiratory failure secondary to COVID-19 pneumonia, with acute respiratory distress syndrome -CT angiogram negative for pulmonary emboli Plan -Currently in the ICU -For now continue fentanyl, Versed for sedation, can add on propofol -Continue ventilation, pH 7.48, PCO2 39.9, PO2 163, bicarb 29.6, on FiO2 65%, tidal volume 480, PEEP of 10 -Currently prone and paralyzed with Nimbex, currently finishing second session, will do 3 sessions total -When supine, start tube feedings, when supine minimal sedation, guideline fentanyl under 20 -Start Pulmicort 10 cc an hour, free water flushes 100 cc every 4 hours -Maintain MAP greater than 65, Levophed as needed -Continue broad-spectrum antibiotic therapy stop vancomycin, continue Zosyn, add doxycycline -Sputum culture showing penicillin resistant staph aureus, MRSA nares negative -Continue remdesivir -baricitinib discontinued given sputum culture results - hold Lasix -Continue Decadron -Low-dose sliding scale -Protonix for GI prophylaxis -Therapeutic Lovenox for DVT prophylaxis -Full code bilateral DVTs in both popliteal veins extending into the calf veins, on therapeutic Lovenox Sepsis, resolved, secondary to COVID-19 pneumonia as above ZACHARIAH creatinine up to 1.3, secondary to sepsis, diuretic therapy, COVID-19 pneumonia, urine output 3050, NSTEMI, likely type II NSTEMI, supply demand ischemia from COVID-19 pneumonia as above, respiratory failure, continue telemetry monitoring, order cardiac echocardiogram Type 2 diabetes mellitus, insulin sliding scale Status: Acute (2) Respiratory failure with hypoxia: Status: Acute Qualifiers: Chronicity: acute Qualified Code(s): J96.01 - Acute respiratory failure with hypoxia (3) ARDS (adult respiratory distress syndrome): Status: Acute (4) Type 2 diabetes mellitus: Status: Acute Qualifiers: 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 Diabetes mellitus complication status: with other specified complication Qualified Code(s): E11.69 - Type 2 diabetes mellitus with other specified complication (5) Sepsis: Status: Acute (6) ZACHARIAH (acute kidney injury): Status: Acute (7) NSTEMI (non-ST elevated myocardial infarction): Status: Acute Attestations Medical Necessity Statement*: Patient requires hospitalization, for acute respiratory distress syndrome, acute hypoxic respiratory failure secondary COVID-19 pneumonia Coding Level of Care Code Acute Experimental Rocketsled Mechanic for [facility] Diagnoses Pneumonia due to 2019-nCoV U07.1; J12.82 Respiratory failure with hypoxia J96.01 Chronicity: acute ARDS (adult respiratory distress syndrome) J80 Type 2 diabetes mellitus E11.69 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
[2021-05-06 11:43] LABS: Glucose Point of Care 181 mg/dL (70-110)
--- NOTE | 2021-05-06 14:08 | PC.RESP ---
RT Shift Note Frequent safety and respiratory rounds continue. Orders completed as indicated. Patient monitored pre and post treatments throughout shift. Patient [Did.] tolerate treatments appropriately. Condition [.DidNotChange]. Patient and/or indirect sales representative educated on respiratory treatment and medications. Patient and/or indirect sales representative [unable to comprehend]. Will continue to monitor patient progress.
[2021-05-06] MEDS: cisatracurium 100 MG in sodium chloride 0.9% 50 ML IV (14:39)
[2021-05-06] MEDS: remdesivir 100 MG in sodium chloride 0.9% (100 ml) 80 ML IV (18:04)
[2021-05-06] MEDS: doxycycline 100 MG in sodium chloride 0.9% (plus) 100 ML IV (18:04)
--- NOTE | 2021-05-06 19:00 | PC.NURSE ---
Shift Note Frequent safety and comfort rounds continue. Orders and/or nursing care completed as indicated. Patient monitored for response to intervention and treatment(s). Child and friend Carline were updated regarding patient status throughout the day. Pt positioned changed from prone to supine at 1730. Pt tolerated well. Nimbex and Versed turned off. Fentanyl remains at 75 mcg. Will continue to monitor. TRAIN Of FOUR and BIZ as follows: 0800 454/4 1000 52 4/4 1200 47 2/4 1400 46 2/4 1600 45 2/4
[2021-05-06 19:37] LABS: Glucose Point of Care 229 mg/dL (70-110)
[2021-05-07] VITALS (60 sets, daily range): BP systolic 102–149; BP diastolic 60–81; PULSE 41–83; RESP 20–27; TEMP 36.1–37.3; O2SAT 90–97
[2021-05-07] MEDS: ipratropium-albuterol 3 mL Neb INHALATION ×4 (03:09→20:52)
[2021-05-07 04:45] LABS: Basophils % 0.1 %; Hematocrit 41.1 % (42.0-52.0); Lymphocytes # 0.3 10^3/uL (0.8-4.8); Lymphocytes % 2.6 %; Mean Corpuscular HGB Conc 31.6 g/dL (30.0-36.0); Mean Corpuscular Volume 97.9 fl (80-94); Mean Platelet Volume 10.4 fL (7.4-10.4); Monocytes # 0.4 10^3/uL (0.2-0.9); Monocytes % 3.5 %; Neutrophils # 10.27 10^3/uL (1.8-7.7); Nucleated Red Blood Cells % 0 %; Platelet Count 307 10^3/cmm (130-400); Red Cell Distribution Width 14.8 % (12.1-15.1); White Blood Count 11.1 10^3/uL (4.0-10.0)
[2021-05-07 04:58] LABS: ABG PCO2 40.6 mmHg (35-45); ABG PH Result 7.45 (7.35-7.45); Arterial Blood Gas Hematocrit 43.2 % (42-52); Blood Gas Operator Identificat JB; Blood Gas Sample Site Brachial, right; Blood Gas Sample Type Arterial; Blood Gas Tidal Volume 0.48; HCO3 ABG 28.3 mmol/L (22-26); Oxygen Device VENT; PO2 ABG 67.1 mmHg (80.0-100.0)
[2021-05-07 05:24] LABS: Alanine Aminotransferase 32 U/L (0-41); Albumin Level 2.5 g/dL (3.5-5.2); Alkaline Phosphatase 96 IU/L (40-130); Aspartate Amino Transferase 52 U/L (0-40); Blood Urea Nitrogen 45 mg/dL (8-23); C Reactive Protein 50.9 mg/L (0.0-4.9); Calcium 7.8 mg/dL (8.5-10.5); Carbon Dioxide 27 mmol/L (22-29); Chloride 110 mmol/L (98-107); Globulin 3.1 g/dL (1.3-4.6); Glomerular Filtration Rate 68.3 mL/min (90-130); Glucose 197 mg/dL (65-115); Osmolality Calculated 319 mOsm/kg (285-295); Phosphorus 3.1 mg/dL (2.5-4.5); Sodium 146 mmol/L (136-145); Total Protein 5.6 g/dL (6.6-8.7)
[2021-05-07 05:29] LABS: NT Pro B Type Natriuretic Pept 1279 pg/mL (0-125); Procalcitonin 0.42 ng/mL (0-0.5)
[2021-05-07 05:38] LABS: INR 1.73 (0.8-1.2)
[2021-05-07 05:46] LABS: Creatine Phosphokinase 239 U/L (39-308)
[2021-05-07] MEDS: pantoprazole 40 mg SDV IVP ×2 (06:09→17:28)
[2021-05-07] MEDS: enoxaparin 80 mg/0.8 mL Syringe SUBCUT ×2 (06:09→18:28)
[2021-05-07] MEDS: piperacillin-tazobactam 3.375 GM in sodium chloride 0.9% (plus) 50 ML IV ×3 (06:09→23:03)
[2021-05-07] MEDS: doxycycline 100 MG in sodium chloride 0.9% (plus) 100 ML IV (06:09)
[2021-05-07] MEDS: dexamethasone 4 mg/mL INJ 6 MG IVP (06:09)
--- NOTE | 2021-05-07 07:00 | XRR_ITS ---
PROCEDURE INFORMATION: Exam: XR Chest Exam date and time: 05/07/2021 7:00 AM Age: 61 years old Clinical indication: Shortness of breath; Patient HX: Covid; Additional info: SOB TECHNIQUE: Imaging protocol: XR of the chest. Views: 1 view. COMPARISON: CR (CHEST, ) 05/06/2021 5:05 AM FINDINGS: Tubes, catheters and devices: Endotracheal tube is in satisfactory position. Feeding tube is in satisfactory position. Right IJ approach central line is in satisfactory position, with distal tip in the RA. Lungs: Improving bilateral interstitial markings and airspace opacities. Pleural spaces: Unremarkable. No pleural effusion. No pneumothorax. Heart/Mediastinum: Stable cardiomediastinal silhouette. Bones/joints: Unremarkable. XR/XR chest 1V portable [id number] IMPRESSION: Improving bilateral airspace opacities.
[2021-05-07 07:43] LABS: Glucose Point of Care 211 mg/dL (70-110)
--- NOTE | 2021-05-07 07:49 | PC.NURSE ---
Head to toe assessment, oral care, blood glucose assessment, and temperature completed this morning. Mr. Guajardo appeared to be resting comfortably. Patient became agitated with oral care, but quickly calmed with reassurance.
--- NOTE | 2021-05-07 08:38 | PM.PN ---
Subjective Subjective: Interval history: -Patient seen at bedside today -Completed 3 proning sessions and currently on FiO2 50% on CMV mode -Patient is on fentanyl 25 MCG/hour and opening eyes with verbal commands -plan is to taper down sedation and continue awakening trial -Labs and imaging reviewed Medications: Reviewed: Yes Vitals/I&O/Wt Last Vital Signs Temp 98.7 F 05/07/21 04:00 Pulse 60 05/07/21 06:00 Resp 20 H 05/07/21 06:13 BP 109/66 05/07/21 05:30 Pulse Ox 94 05/07/21 06:13 05/06/21 05/07/21 05/07/21 22:59 06:59 14:59 Intake Total 339.631 / 462.024 770 / 1232.024 Output Total 950 / 950 500 / 1450 Balance -610.369 / -487.976 270 / -217.976 Physical Exam Narrative: EXAM NARRATIVE: General: lying in bed, sedated and intubated. HEENT:NCAT, PERRLA, EOMI Neck: Supple Lungs: Bilateral diffuse coarse crepitations Heart: s1/s2, RRR Abd: soft, NT, ND, BS + Normoactive Extremities: No edema LEVEL VIAL SEALER: sedated and limited LEVEL VIAL SEALER exam possible. SKIN: no rash LDA: # CVC: Right internal jugular vein 23,021 Urinary Catheter Management^: Dewey: Cath Placed During This Visit: yes, but has since been removed by the nurse Reason for Continuing Indwelling Catheter: Accurate Measurement of Urinary Output in Critically Ill Patients Urinary Catheter Date of Insertion: 05/05/21 Urinary Catheter Time of Insertion: 12:47 Date Urinary Catheter Removed: 05/05/21 Time Urinary Catheter Discontinued: 12:45 Data : 05/07/21 03:31 05/07/21 03:31 Other Labs: Laboratory Results WBC 11.1 10^3/uL (4.0-10.0) H 05/07/21 03:31 Corrected WBC Cancelled 05/03/21 11:30 RBC 4.20 10^6/uL (4.1-5.3) 05/07/21 03:31 Hgb 13.0 g/dL (11.7-16.6) 05/07/21 03:31 Hct 41.1 % (42.0-52.0) L 05/07/21 03:31 MCV 97.9 fl (80-94) H 05/07/21 03:31 MCH 31.0 pg (28.0-34.0) 05/07/21 03:31 MCHC 31.6 g/dL (30.0-36.0) 05/07/21 03:31 RDW 14.8 % (12.1-15.1) 05/07/21 03:31 Plt Count 307 10^3/cmm (130-400) 05/07/21 03:31 MPV 10.4 fL (7.4-10.4) 05/07/21 03:31 Gran % Cancelled 05/03/21 11:30 Neut % (Auto) 93.0 % 05/07/21 03:31 Lymph % (Auto) 2.6 % 05/07/21 03:31 [place] % (Auto) 3.5 % 05/07/21 03:31 Eos % (Auto) 0.0 % 05/07/21 03:31 Baso % (Auto) 0.1 % 05/07/21 03:31 Neut # (Auto) 10.27 10^3/uL (1.8-7.7) H 05/07/21 03:31 Lymph # (Auto) 0.3 10^3/uL (0.8-4.8) L 05/07/21 03:31 [place] # (Auto) 0.4 10^3/uL (0.2-0.9) 05/07/21 03:31 Eos # (Auto) 0.0 10^3/uL (0.0-0.8) 05/07/21 03:31 Baso # (Auto) 0.0 10^3/uL (0.0-0.1) 05/07/21 03:31 Absolute Gran (auto) Cancelled 05/03/21 11:30 Nucleated RBC % (auto) 0 % 05/07/21 03:31 Total Counted 100 (0-100) 05/02/21 20:10 Atypical Lymphs % 7.0 % (0-5) H 05/02/21 20:10 Absolute Neutrophils 12.0 10^3/cmm (1.4-6.5) H 05/02/21 20:10 Segmented Neutrophils 71 % 05/02/21 20:10 Abs Segm Neuts (Man) 11.1 10/cmm (1.6-7.1) H 05/02/21 20:10 Band Neutrophils 6.0 % 05/02/21 20:10 Abs Band Neuts (Man) 0.9 10^3/cmm (0.0-1.2) 05/02/21 20:10 Absolute Lymphocytes 2.3 10^3/cmm (1.2-3.4) 05/02/21 20:10 Lymphocytes (Manual) 8 % 05/02/21 20:10 Monocytes (Manual) 1.0 % 05/02/21 20:10 Absolute Monocytes 0.2 10^3/cmm (0.1-0.6) 05/02/21 20:10 Eosinophils (Manual) Not Reportable 05/02/21 20:10 Basophils (Manual) Not Reportable 05/02/21 20:10 Nucleated RBCs 7.0 /100WBC (0-1) H 05/02/21 20:10 Nucleated RBCs # 0.0 /100WBC 05/07/21 03:31 Platelet Estimate Increased (Normal) 05/02/21 20:10 Giant Platelets Trace 05/02/21 20:10 Polychromasia Trace 05/02/21 20:10 PT 20.60 SECONDS (12.1-14.9) H 05/07/21 03:31 INR 1.73 (0.8-1.2) H 05/07/21 03:31 Fibrinogen 537 mg/dL (174-498) H 05/02/21 20:10 D-Dimer >= 20.00 ug/mIFEU (0-0.59) H 05/04/21 03:50 Specimen Type Arterial 05/07/21 04:43 Sample Site Brachial, right 05/07/21 04:43 ABG pH 7.45 (7.35-7.45) 05/07/21 04:43 ABG pCO2 40.6 mmHg (35-45) 05/07/21 04:43 ABG pO2 67.1 mmHg (80.0-100.0) L 05/07/21 04:43 ABG HCO3 28.3 mmol/L (22-26) H 05/07/21 04:43 ABG Base Excess 4.0 mmol/L (-2.0-2.0) H 05/07/21 04:43 Alpesh Test N/a 05/07/21 04:43 Hematocrit 43.2 % (42-52) 05/07/21 04:43 Respiration Rate 20.0 % 05/04/21 05:05 O2 Delivery Device Vent 05/07/21 04:43 FiO2 50.0 % 05/07/21 04:43 Tidal Volume 0.48 05/07/21 04:43 PEEP 10.0 cmH20 05/07/21 04:43 Carbonator ID Caesar 05/07/21 04:43 Sodium 146 mmol/L (136-145) H 05/07/21 03:31 Potassium 5.0 mmol/L (3.5-5.1) 05/07/21 03:31 Chloride 110 mmol/L (98-107) H 05/07/21 03:31 Carbon Dioxide 27 mmol/L (22-29) 05/07/21 03:31 Anion Gap 14.0 (5-19) 05/07/21 03:31 BUN 45 mg/dL (8-23) H 05/07/21 03:31 Creatinine 1.1 mg/dL (0.7-1.2) 05/07/21 03:31 GFR Calculation 68.3 mL/min (90-130) L 05/07/21 03:31 Glucose 197 mg/dL (65-115) H 05/07/21 03:31 POC Glucose 212 mg/dL (70-110) H 05/07/21 17:09 Estimat Average Glucose 143 05/03/21 11:58 Hemoglobin A1c 6.6 % (4.0-6.0) H 05/03/21 11:58 Calculated Osmolality 319 mOsm/kg (285-295) H 05/07/21 03:31 Lactic Acid 7.0 mmol/L (0.5-2.2) H* 05/02/21 20:10 Lactic Acid (Sepsis) 3.2 mmol/L (0.5-2.2) H 05/02/21 22:56 Lactate 1.9 mmol/L (0.5-2.2) 05/06/21 02:55 Calcium 7.8 mg/dL (8.5-10.5) L 05/07/21 03:31 Phosphorus 3.1 mg/dL (2.5-4.5) 05/07/21 03:31 Magnesium 3.0 mg/dL (1.7-2.3) H 05/07/21 03:31 Ferritin 585 ng/mL (30-400) H 05/06/21 02:55 Total Bilirubin 1.0 mg/dL (0.15-1.2) 05/07/21 03:31 AST 52 U/L (0-40) H 05/07/21 03:31 ALT 32 U/L (0-41) 05/07/21 03:31 Alkaline Phosphatase 96 IU/L (40-130) 05/07/21 03:31 Creatine Kinase 239 U/L (39-308) 05/07/21 03:31 Troponin T Baseline 24 ng/L (0-15) H 05/03/21 05:05 Troponin T 120 Minute 22.98 ng/L (0-15) H 05/03/21 06:45 Delta Troponin T -1.02 ABS# (0-10) L 05/03/21 06:45 Troponin T Hi Sens 6Hr 15.29 ng/L (0-15) H 05/03/21 11:30 Troponin T Hi Sens 6Hr Delta -8.71 ng/L (0-12) L 05/03/21 11:30 C-Reactive Protein 50.9 mg/L (0.0-4.9) H 05/07/21 03:31 NT-Pro-B Natriuret Pep 1279 pg/mL (0-125) H 05/07/21 03:31 Total Protein 5.6 g/dL (6.6-8.7) L 05/07/21 03:31 Albumin 2.5 g/dL (3.5-5.2) L 05/07/21 03:31 Globulin 3.1 g/dL (1.3-4.6) 05/07/21 03:31 Procalcitonin 0.42 ng/mL (0-0.5) 05/07/21 03:31 TSH 0.69 uIU/mL (0.27-4.20) 05/03/21 05:05 Vancomycin Trough 15.7 ug/mL (10-15) H 05/06/21 02:55 Nasal/Oral COVID-19 PCR Detected H 09/23/21 18:20 SARS-CoV-2 Ag (Rapid) Negative (Negative) 05/03/21 00:25 Impressions Chest CTA 05/02/21 20:57 IMPRESSION: 1. No evidence for pulmonary embolus. Evaluation is limited by breathing motion artifact. 2. Diffuse ground-glass opacities, consistent with multilobar pneumonia. This pattern is indeterminate and can be seen with COVID-19 pneumonia as well as other infectious etiologies. Radiation Dose CTDIVOL = (mGy): DLP = 514.3 (mGy-cm) Chest X-Ray 05/07/21 07:00 IMPRESSION: Improving bilateral airspace opacities. A&P Assessment and plan (1) Acute respiratory distress syndrome (ARDS) due to 2019 novel coronavirus: Status: Acute (2) Respiratory failure with hypoxia: Status: Acute Qualifiers: Chronicity: acute Qualified Code(s): J96.01 - Acute respiratory failure with hypoxia (3) ZACHARIAH (acute kidney injury): Status: Acute (4) NSTEMI (non-ST elevated myocardial infarction): Status: Acute (5) Type 2 diabetes mellitus: Status: Acute Qualifiers: Diabetes mellitus halfway insulin use: unspecified termite exterminator helper insulin use status Diabetes mellitus complication status: with other specified complication Qualified Code(s): E11.69 - Type 2 diabetes mellitus with other specified complication #Acute hypoxic respiratory failure secondary to ARDS due to COVID-19 pneumonia #MSSA pneumonia #Bilateral DVT and popliteal veins extending into calf veins on venous Doppler; no evidence of PE #NSTEMI type II #Deranged LFT secondary to COVID-19 pneumonia #Diabetes mellitus with A1c 6.6 -Covid PCR + 04/23/21 [facility], admission 05/02/2021;Intubated 05/03/2021 -Currently intubated, sedated paralyzed and proned 3 sessions -Taper off paralytic and sedation-start awakening trial, once patient is awake initiate breathing trials -On CMV 480/50%/10 - 7.4 //28 -Taper FiO2 - to keep her saturations > 90% -Currently on remdesivir and dexamethasone; -Baricitinib held due to ongoing active infection -Hypoxia complicated by bilateral DVT and staph pneumonia; CTA ruled out PE -On therapeutic Lovenox for bilateral DVT -Sputum cultures positive for MSSA - , procalcitonin 1.80, On zosyn; Dc Doxycycline -Troponin elevation-likely NSTEMI type II-continue telemetry monitoring; echo normal LV function with EF 55%. Moderate aortic valve calcification. -Monitor input output and try to keep net negative to even fluid balance; monitor electrolytes and supplement as necessary -Deranged LFTs due to COVID-19 pneumonia-monitor and avoid hepatotoxic medications -A1c 6.6-possible newly diagnosed diabetes-sugars controlled with scale coverage -Continue tube feeding and do not go more than 30 mL/h, stop feeding at least 2 to 3 hours prior awakening and breathing trials -Bowel regimen senna docusate 2 tabs hs -DVT prophylaxis: On therapeutic Lovenox for DVT -GI prophylaxis PPI -Full code -Family updated At this point of time, will treat MSSA pneumonia with Zosyn, bilateral lower extremity DVT with therapeutic Lovenox, continue awakening trials and breathing trials Recommendations conveyed to hospitalist, RN, RT taking care of the patient Attestations Medical Necessity Statement*: Acute hypoxic respiratory failure secondary to ARDS due to COVID-19 pneumonia-requiring mechanical ventilation complicated by bilateral DVT and MSSA pneumonia-completed 3 proning sessions and currently on mechanical ventilator with FiO2 50%-we will continue awakening trials and breathing trials Time Spent in Patient Care: Greater than 35 minutes (>than 50% of time spent in counselling and/or direct pt care on unit). Critical Care Time: Critical Care Time (min): 45 Coding Level of Care Code Established Pt Acute Philosophy Faculty Member for Hayleyg Fwd Patient Type Established History Comprehensive Exam Comprehensive Medical Decision Making High Complexity Diagnoses Acute respiratory distress syndrome (ARDS) due to 2019 novel coronavirus U07.1; J80 Respiratory failure with hypoxia J96.01 Chronicity: acute ZACHARIAH (acute kidney injury) N17.9 NSTEMI (non-ST elevated myocardial infarction) I21.4 Type 2 diabetes mellitus E11.69 Diabetes mellitus termite exterminator helper insulin use: unspecified halfway insulin use status Diabetes mellitus complication status: with other specified complication Time Spent (min) 45
[2021-05-07] MEDS: budesonide 0.5 mg/2 mL Neb INHALATION ×2 (09:09→20:52)
[2021-05-07] MEDS: ascorbic acid 500 mg Tablet PO ×2 (09:11→17:28)
[2021-05-07] MEDS: cholecalciferol (vitamin D3) 1,000 unit Tablet 1000 UNIT PO (09:11)
[2021-05-07] MEDS: zinc gluconate 50 mg Tablet PO (09:11)
--- NOTE | 2021-05-07 09:31 | PC.NURSE ---
Oral swab kit used with 15ml chlorhexidine gluconate located in room.
[2021-05-07] MEDS: chlorhexidine gluconate 0.12% Btl 473 mL 15 ML MUCOUS MEM ×2 (09:42→18:29)
--- NOTE | 2021-05-07 09:54 | PC.CHAP ---
Pastoral Care Encounter/Spiritual Assessment Type of Contact [] Declined knot saw operator visit [] Patient/Family/Request visit [] Outpatient visit [] Follow-up visit [] Physician referral [] Code/Alert [x] Routine visit [] Staff referral [] Actively dying [] Patient sleeping [] Family support [] [] Out of room [] Palliative care [] [] Receiving care in room [] Pre-surgical visit [] Trauma [] Long length of stay [x] ICU visit [x] Other: covid Relational/Emotional Strength [] Patient feels connected with others/family/visitors/staff [] Distress [] Loneliness/isolation [] Abandonment Spirituality of Patient [] Person of Shaila [] Attends [employer] of their Shaila [] Believes in Prayer [] Reads Bible or Episcopalian materials [] There are Spiritual issues to be addressed Curing Machine Operator Interventions [x] Prayer [] Active listening [] Non-anxious presence [] Spiritual/emotional support [] Crisis/trauma care [] Spiritual counseling [] Bereavement support [] Provided bereavement packet [] Provided Bible/devotional materials [] Provided toy/stuffed animal, coloring book to patient or family member [] Provided Communion [] Anointing/Cliff [] Salvation [x] Completed spiritual assessment [] Other: Impact on Illness or Injury [] Angry [] Fearful [] Anxious [] Often cries [] Exhaustion [] Unable to work [] Unable to attend yarsani [] Unable to walk/stand [] Unable to read [] Unable to drive [] Unable to eat/drink [] Unable to sleep [] Unable to be with family [] Patient intubated [] Other: Summary Time spent with patient
--- NOTE | 2021-05-07 10:26 | P.PN_ITS ---
Subjective Subjective: Interval history: Patient was seen and examined this morning, completed 3 proning session, currently on 50 % FIO2 at PEEP of 8. Off sedation GCS is 10T. Am chest xray shows improvement in b/l air space disease. His other Vitals and labs have been reviewed. Medications: Reviewed: Yes Vitals/I&O/Wt Last Vital Signs Temp 99.1 F 05/07/21 07:30 Pulse 56 L 05/07/21 09:09 Resp 20 H 05/07/21 09:09 BP 115/70 05/07/21 08:30 Pulse Ox 94 05/07/21 09:09 05/06/21 05/07/21 05/07/21 22:59 06:59 14:59 Intake Total 339.631 / 462.024 770 / 1232.024 Output Total 950 / 950 500 / 1450 250 / 250 Balance -610.369 / -487.976 270 / -217.976 -250 / -250 Physical Exam Const: COMMON NORMALS: patient oriented x3 HENMT: COMMON NORMALS: normocephalic and atraumatic HEAD & SCALP: normocephalic and atraumatic Resp: OTHER: Coarse Breath sounds B/L. Cardio: COMMON NORMALS: regular rate, regular rhythm, S1 normal heart sound present, S2 normal heart sound present, No gallops present (Cardio), No murmurs present (Cardio), No rub (Cardio) and Peripheral pulses 2+ throughout RATE: regular rate RHYTHM: regular rhythm HEART SOUNDS: S1 normal heart sound present and S2 normal heart sound present PERIPHERAL PULSES: Peripheral pulses 2+ throughout GI: COMMON NORMALS: Normal to inspection, nondistended, normoactive bowel sounds present, Soft to palpation, non-tender, No hepatosplenomegaly present and no masses AUSCULTATION: Yes normoactive bowel sounds PALPATION: Yes Soft to palpation and Yes No hepatosplenomegaly present RECTAL EXAM: Yes deferred Extremity: COMMON NORMALS: no clubbing, cyanosis or edema and no pedal edema Neuro: COMMON NORMALS: patient oriented x3 Urinary Catheter Management^: Dewey: Cath Placed During This Visit: yes, but has since been removed by the nurse Reason for Continuing Indwelling Catheter: Accurate Measurement of Urinary Output in Critically Ill Patients Urinary Catheter Date of Insertion: 05/05/21 Urinary Catheter Time of Insertion: 12:47 Date Urinary Catheter Removed: 05/05/21 Time Urinary Catheter Discontinued: 12:45 Data : 05/07/21 03:31 05/07/21 03:31 A&P Assessment and plan (1) Pneumonia due to 2019-nCoV: Acute hypoxic respiratory failure secondary to COVID-19 pneumonia, with acute respiratory distress syndrome -CT angiogram negative for pulmonary emboli Plan -Currently in the ICU -Continue Dexamethasone 6 mg I.V Daily for 10 days - Completed 5 days course of remdesivir -For now continue fentanyl, Versed for sedation, can add on propofol -Continue ventilation, pH 7.45, PCO2 40.6, PO2: 67 , FiO2 50%, tidal volume 480, PEEP of 8 -Completed 3 sessions of proning. -When supine, start tube feedings, when supine minimal sedation, guideline fentanyl under 20 -Start Pulmicort 10 cc an hour, free water flushes 100 cc every 4 hours -Maintain MAP greater than 65, Levophed as needed -Continue broad-spectrum antibiotic therapy stop vancomycin, continue Zosyn, add doxycycline -Sputum culture showing penicillin resistant staph aureus, MRSA nares negative -baricitinib discontinued given sputum culture results - hold Lasix -Low-dose sliding scale -Protonix for GI prophylaxis -Therapeutic Lovenox for DVT prophylaxis -Full code bilateral DVTs in both popliteal veins extending into the calf veins, on therapeutic Lovenox Sepsis, resolved, secondary to COVID-19 pneumonia as above ZACHARIAH creatinine up to 1.3, secondary to sepsis, diuretic therapy, COVID-19 pneumonia, urine output 3050, NSTEMI, likely type II NSTEMI, supply demand ischemia from COVID-19 pneumonia as above, respiratory failure, continue telemetry monitoring, order cardiac echocardiogram Type 2 diabetes mellitus, insulin sliding scale Status: Acute (2) Respiratory failure with hypoxia: Status: Acute Qualifiers: Chronicity: acute Qualified Code(s): J96.01 - Acute respiratory failure with hypoxia (3) ARDS (adult respiratory distress syndrome): Status: Acute (4) Type 2 diabetes mellitus: Status: Acute Qualifiers: Diabetes mellitus manager trade marketing insulin use: unspecified custodial insulin use status Diabetes mellitus complication status: with other specified complication Qualified Code(s): E11.69 - Type 2 diabetes mellitus with other specified complication (5) Sepsis: Status: Acute (6) ZACHARIAH (acute kidney injury): Status: Acute (7) NSTEMI (non-ST elevated myocardial infarction): Status: Acute Attestations Medical Necessity Statement*: Patient needs to be in hospital for the m anagement of COVID PNA Coding Level of Care Code Acute Supervisor Assembly Room for g Fwd Diagnoses Pneumonia due to 2019-nCoV U07.1; J12.82 Respiratory failure with hypoxia J96.01 Chronicity: acute ARDS (adult respiratory distress syndrome) J80 Type 2 diabetes mellitus E11.69 Diabetes mellitus custodial insulin use: unspecified manager trade marketing insulin use status Diabetes mellitus complication status: with other specified complication Sepsis A41.9 ZACHARIAH (acute kidney injury) N17.9 NSTEMI (non-ST elevated myocardial infarction) I21.4
[2021-05-07 11:14] LABS: Glucose Point of Care 179 mg/dL (70-110)
--- NOTE | 2021-05-07 11:28 | PC.NURSE ---
Oral swab performed with 15ml chlorexidine gluconate.
--- NOTE | 2021-05-07 13:14 | PC.NURSE ---
Mr. Guajardo is able to lightly squeeze fingers on command and attempts to open his eyes when asked to. Fentanyl drip@25mls/hr. Blood pressure 125/72, O2 94%, heart rate is 57, respirations are currently 23.
--- NOTE | 2021-05-07 14:32 | PC.NURSE ---
Spoke with patients friend Carline about updates in condition. Mr. Torres friend, Carline was able to use unit ipad to facetime with him. Mr. Guajardo was able to open his eyes to interact, lightly squeeze fingers, and slightly nod head.
[2021-05-07] MEDS: doxycycline 100 MG in sodium chloride 0.9% (plus) 100 ML 200 MG IV (17:29)
[2021-05-07 17:34] LABS: Glucose Point of Care 212 mg/dL (70-110)
--- NOTE | 2021-05-07 18:23 | PC.NURSE ---
Shift Note Frequent safety and comfort rounds continue. Orders and/or nursing care completed as indicated. Patient monitored for response to intervention and treatment(s). Education provided includes: vent settings, response to therapy, current treatment plan,and medications. Patient was able to nod head to indicate understanding and patients friend/partner verbally acknowledged understanding. Patients friend/partner was able to use the unit ipad and [employer] with Mr. Guajardo and stated she would continue to do so throughout the evening.
[2021-05-07] MEDS: sennosides-docusate Tablet 2 TAB PO (20:19)
[2021-05-08] VITALS (47 sets, daily range): BP systolic 93–139; BP diastolic 60–82; PULSE 43–101; RESP 19–28; TEMP 35.9–37; O2SAT 88–98
[2021-05-08] MEDS: ipratropium-albuterol 3 mL Neb INHALATION ×4 (03:15→20:40)
[2021-05-08 04:49] LABS: Basophils % 0.1 %; Hematocrit 44.1 % (42.0-52.0); Hemoglobin 13.9 g/dL (11.7-16.6); Lymphocytes # 0.4 10^3/uL (0.8-4.8); Lymphocytes % 4.1 %; Mean Corpuscular HGB Conc 31.5 g/dL (30.0-36.0); Mean Corpuscular Hemoglobin 31.7 pg (28.0-34.0); Mean Corpuscular Volume 100.5 fl (80-94); Mean Platelet Volume 10.4 fL (7.4-10.4); Monocytes # 0.2 10^3/uL (0.2-0.9); Neutrophils # 8.53 10^3/uL (1.8-7.7); Neutrophils % 92.9 %; Nucleated Red Blood Cells % 0 %; Platelet Count 294 10^3/cmm (130-400); Red Blood Count 4.39 10^6/uL (4.1-5.3); White Blood Count 9.2 10^3/uL (4.0-10.0)
[2021-05-08 04:55] LABS: ABG PCO2 38.9 mmHg (35-45); ABG PH Result 7.45 (7.35-7.45); Arterial Blood Gas Hematocrit 43.4 % (42-52); Base Excess ABG 2.5 mmol/L (-2.0-2.0); Blood Gas Sample Type Arterial; HCO3 ABG 26.7 mmol/L (22-26); PO2 ABG 60.1 mmHg (80.0-100.0)
[2021-05-08 04:57] LABS: Blood Gas Sample Site Brachial, right; Blood Gas Tidal Volume 0.48; Oxygen Device VENT
[2021-05-08 05:01] LABS: INR 1.65 (0.8-1.2)
[2021-05-08 05:06] LABS: Alanine Aminotransferase 35 U/L (0-41); Albumin Level 2.1 g/dL (3.5-5.2); Alkaline Phosphatase 90 IU/L (40-130); Aspartate Amino Transferase 57 U/L (0-40); Blood Urea Nitrogen 39 mg/dL (8-23); C Reactive Protein 30.8 mg/L (0.0-4.9); Calcium 6.6 mg/dL (8.5-10.5); Carbon Dioxide 23 mmol/L (22-29); Chloride 117 mmol/L (98-107); Creatinine Clr Calc Pharmacy 112.6013; Globulin 2.7 g/dL (1.3-4.6); Glucose 158 mg/dL (65-115); Magnesium 2.3 mg/dL (1.7-2.3); Osmolality Calculated 317 mOsm/kg (285-295); Phosphorus 2.8 mg/dL (2.5-4.5); Sodium 147 mmol/L (136-145); Total Bilirubin 1.4 mg/dL (0.15-1.2); Total Protein 4.8 g/dL (6.6-8.7)
[2021-05-08 05:20] LABS: NT Pro B Type Natriuretic Pept 655 pg/mL (0-125); Procalcitonin 0.26 ng/mL (0-0.5)
[2021-05-08 05:31] LABS: Creatine Phosphokinase 143 U/L (39-308)
[2021-05-08] MEDS: dexamethasone 4 mg/mL INJ 6 MG IVP (06:18)
[2021-05-08] MEDS: piperacillin-tazobactam 3.375 GM in sodium chloride 0.9% (plus) 50 ML IV ×3 (06:19→23:17)
[2021-05-08] MEDS: pantoprazole 40 mg SDV IVP ×2 (06:19→17:21)
[2021-05-08] MEDS: enoxaparin 80 mg/0.8 mL Syringe SUBCUT ×2 (06:19→18:16)
[2021-05-08] MEDS: doxycycline 100 MG in sodium chloride 0.9% (plus) 100 ML IV (06:20)
[2021-05-08 07:25] LABS: Glucose Point of Care 154 mg/dL (70-110)
[2021-05-08] MEDS: albumin 12.5 GM/50 ML VIAL IV (07:29)
[2021-05-08] MEDS: budesonide 0.5 mg/2 mL Neb INHALATION ×2 (08:15→20:40)
[2021-05-08] MEDS: ascorbic acid 500 mg Tablet PO ×2 (08:27→18:16)
[2021-05-08] MEDS: zinc gluconate 50 mg Tablet PO (08:27)
--- NOTE | 2021-05-08 08:27 | PC.NURSE ---
Head to toe assessment, blood glucose assessment, temperature, and oral care completed this morning. Mr. Guajardo appeared to be resting comfortably. Current plan is to continue weaning vent trials and possibly extubate today.
[2021-05-08] MEDS: cholecalciferol (vitamin D3) 1,000 unit Tablet 1000 UNIT PO (08:28)
[2021-05-08] MEDS: chlorhexidine gluconate 0.12% Btl 473 mL 15 ML MUCOUS MEM ×2 (08:29→18:17)
--- NOTE | 2021-05-08 11:06 | PM.PN ---
Subjective Subjective: Interval history: Patient was seen and examined this morning,continue to be on mechanical ventilation ( 55 % Fio2 and PEEP of 8 ), off sedation he follows command. Net Negative ( 892 ) received albumin 12.5 gm overnight. Medications: Reviewed: Yes Vitals/I&O/Wt Last Vital Signs Temp 98.6 F 05/08/21 08:30 Pulse 73 05/08/21 09:00 Resp 20 H 05/08/21 08:16 BP 123/60 05/08/21 09:00 Pulse Ox 93 05/08/21 08:16 05/07/21 05/08/21 05/08/21 22:59 06:59 14:59 Intake Total 150 / 300 470 / 770 241.583 / 241.583 Output Total 700 / 950 150 / 150 Balance 150 / 50 -230 / -180 91.583 / 91.583 Physical Exam Const: COMMON NORMALS: patient oriented x3 HENMT: COMMON NORMALS: normocephalic and atraumatic HEAD & SCALP: normocephalic and atraumatic Resp: OTHER: Coarse Breath sounds B/L. Cardio: COMMON NORMALS: regular rate, regular rhythm, S1 normal heart sound present, S2 normal heart sound present, No gallops present (Cardio), No murmurs present (Cardio), No rub (Cardio) and Peripheral pulses 2+ throughout RATE: regular rate RHYTHM: regular rhythm HEART SOUNDS: S1 normal heart sound present and S2 normal heart sound present PERIPHERAL PULSES: Peripheral pulses 2+ throughout GI: COMMON NORMALS: Normal to inspection, nondistended, normoactive bowel sounds present, Soft to palpation, non-tender, No hepatosplenomegaly present and no masses AUSCULTATION: Yes normoactive bowel sounds PALPATION: Yes Soft to palpation and Yes No hepatosplenomegaly present RECTAL EXAM: Yes deferred Extremity: COMMON NORMALS: no clubbing, cyanosis or edema and no pedal edema Neuro: COMMON NORMALS: patient oriented x3 Urinary Catheter Management^: Dewey: Cath Placed During This Visit: yes, but has since been removed by the nurse Reason for Continuing Indwelling Catheter: Accurate Measurement of Urinary Output in Critically Ill Patients Urinary Catheter Date of Insertion: 05/05/21 Urinary Catheter Time of Insertion: 12:47 Date Urinary Catheter Removed: 05/05/21 Time Urinary Catheter Discontinued: 12:45 Data : 05/08/21 04:22 05/08/21 04:22 Micro: Microbiology 05/02/21 21:15 Blood Culture - Final Blood NO GROWTH AFTER 5 DAYS 05/02/21 20:30 Blood Culture - Final Blood NO GROWTH AFTER 5 DAYS A&P Assessment and plan (1) Pneumonia due to 2019-nCoV: Acute hypoxic respiratory failure secondary to COVID-19 pneumonia, with acute respiratory distress syndrome -CT angiogram negative for pulmonary emboli Plan -Continue Dexamethasone 6 mg I.V Daily for 10 days - Completed 5 days course of remdesivir -Continue fentanyl for sedation -Continue Mechanical ventilation -Completed 3 sessions of proning. -On tube feedings ( Pulmicort 10 cc an hour, free water flushes 200 cc every 4 hours ) -Maintain MAP greater than 65, Levophed as needed -Continue broad-spectrum antibiotic therapy stop vancomycin, continue Zosyn, add doxycycline -Sputum culture showing penicillin resistant staph aureus, MRSA nares negative -baricitinib discontinued given sputum culture results -Low-dose sliding scale -Protonix for GI prophylaxis -Therapeutic Lovenox for DVT prophylaxis -Full code bilateral DVTs in both popliteal veins extending into the calf veins, on therapeutic Lovenox Sepsis, resolved, secondary to COVID-19 pneumonia as above ZACHARIAH creatinine up to 1.3, secondary to sepsis, diuretic therapy, COVID-19 pneumonia, urine output 3050, NSTEMI, likely type II NSTEMI, supply demand ischemia from COVID-19 pneumonia as above, respiratory failure, continue telemetry monitoring, order cardiac echocardiogram Hypernatremia : Free water ( 200 cc q4 h ). Monitor BMP Type 2 diabetes mellitus, insulin sliding scale Status: Acute (2) Respiratory failure with hypoxia: Status: Acute Qualifiers: Chronicity: acute Qualified Code(s): J96.01 - Acute respiratory failure with hypoxia (3) ARDS (adult respiratory distress syndrome): Status: Acute (4) Type 2 diabetes mellitus: Status: Acute Qualifiers: Diabetes mellitus complication status: with other specified complication Diabetes mellitus ocean transportation intermediary insulin use: unspecified senior care insulin use status Qualified Code(s): E11.69 - Type 2 diabetes mellitus with other specified complication (5) Sepsis: Status: Acute (6) ZACHARIAH (acute kidney injury): Status: Acute (7) NSTEMI (non-ST elevated myocardial infarction): Status: Acute (8) Hypernatremia: Status: Acute Attestations Medical Necessity Statement*: Patient needs to be in hospital for the management of PNA. Coding Level of Care Code Acute Science And Operations Officer for Chg Fwd Exam Detailed Diagnoses Pneumonia due to 2019-nCoV U07.1; J12.82 Respiratory failure with hypoxia J96.01 Chronicity: acute ARDS (adult respiratory distress syndrome) J80 Type 2 diabetes mellitus E11.69 Diabetes mellitus complication status: with other specified complication Diabetes mellitus senior care insulin use: unspecified senior care insulin use status Sepsis A41.9 ZACHARIAH (acute kidney injury) N17.9 NSTEMI (non-ST elevated myocardial infarction) I21.4 Hypernatremia E87.0
[2021-05-08 11:26] LABS: Glucose Point of Care 161 mg/dL (70-110)
[2021-05-08] MEDS: LORazepam 1 mg Tablet PO (11:28)
--- NOTE | 2021-05-08 13:30 | PC.NUTR ---
Addendum entered by Hector Norton 05/12/21 11:41: error in below recommendation: gradual increase to goal rate of 50 ml/hr, not 60 ml/hr Original Note: Tube feeding recommendations: Recommend clarification of diet order, as some MD notes indicate goal rate of 30 ml/hr, while others continue to state 10 ml/hr. Also noted misspelling of TF formula name in order. Finally, nurse reports that pt has completed proning sessions, however order still indicates feeding only when not proning. Recommend Pulmocare at 30 ml/hr (24 hrs/day) with 100 ml H2O flushes q 4 hrs to provide 1080 kcal, 45 g protein, 1165 ml H2O. As this amount will not meet estimated kcal/protein needs, if TF well tolerated, recommend gradual increase to goal rate of 60 ml/hr. See full RD assessment for further details.
[2021-05-08 17:40] LABS: Glucose Point of Care 213 mg/dL (70-110)
[2021-05-08] MEDS: doxycycline 100 MG in sodium chloride 0.9% (plus) 100 ML 200 MG IV (18:16)
--- NOTE | 2021-05-08 18:31 | PC.NURSE ---
Shift Note Frequent safety and comfort rounds continue. Orders and/or nursing care completed as indicated. Patient monitored for response to intervention and treatment(s). Education provided includes extubation process, medication side effects, and tube feeding. Patient ventilated, but is able to nod in agreement with understanding. Feeding rate at 30ml per hour with 200ml free water flushes every four hours. 25mcg/hr fentanyl.
--- NOTE | 2021-05-08 18:37 | P.PN_ITS ---
Subjective Subjective: Interval history: -Patient seen at bedside today -Opening eyes and follows commands-but still drowsy -Morning ABG showed PaO2 60 and FiO2 increased to 55% -Today plan is to continue awakening trial and do SBT -Increased clear secretions noted-sent for transtracheal aspirate cultures -Decrease fentanyl to minimum and bridge with oral Colton for opiate withdrawal and pain management -Started on Ativan 1 mg every 2 hours as needed for anxiety and agitation, try to avoid Versed -Start on tube feeding today afternoon -Other labs and imaging reviewed Medications: Reviewed: Yes Vitals/I&O/Wt Last Vital Signs Temp 97.9 F 05/08/21 12:00 Pulse 55 L 05/08/21 16:30 Resp 19 H 05/08/21 18:12 BP 132/71 05/08/21 16:30 Pulse Ox 93 05/08/21 18:12 05/08/21 05/08/21 05/08/21 06:59 14:59 22:59 Intake Total 470 / 770 241.583 / 241.583 Output Total 700 / 950 550 / 550 Balance -230 / -180 -308.417 / -308.417 Physical Exam Narrative: EXAM NARRATIVE: General: lying in bed, sedated and intubated. HEENT:NCAT, PERRLA, EOMI Neck: Supple Lungs: Bilateral diffuse coarse crepitations Heart: s1/s2, RRR Abd: soft, NT, ND, BS + Normoactive Extremities: No edema COLOR ROOM ATTENDANT: sedated and limited COLOR ROOM ATTENDANT exam possible. SKIN: no rash LDA: # CVC: Right internal jugular vein 05/03/2021 Urinary Catheter Management^: Dewey: Cath Placed During This Visit: yes, but has since been removed by the nurse Reason for Continuing Indwelling Catheter: Accurate Measurement of Urinary Output in Critically Ill Patients Urinary Catheter Date of Insertion: 05/05/21 Urinary Catheter Time of Insertion: 12:47 Date Urinary Catheter Removed: 05/05/21 Time Urinary Catheter Discontinued: 12:45 Data : 05/08/21 04:22 05/08/21 04:22 Other Labs: Laboratory Results WBC 9.2 10^3/uL (4.0-10.0) 05/08/21 04:22 Corrected WBC Cancelled 05/03/21 11:30 RBC 4.39 10^6/uL (4.1-5.3) 05/08/21 04:22 Hgb 13.9 g/dL (11.7-16.6) 05/08/21 04:22 Hct 44.1 % (42.0-52.0) 05/08/21 04:22 MCV 100.5 fl (80-94) H 05/08/21 04:22 MCH 31.7 pg (28.0-34.0) 05/08/21 04:22 MCHC 31.5 g/dL (30.0-36.0) 05/08/21 04:22 RDW 15.0 % (12.1-15.1) 05/08/21 04:22 Plt Count 294 10^3/cmm (130-400) 05/08/21 04:22 MPV 10.4 fL (7.4-10.4) 05/08/21 04:22 Gran % Cancelled 05/03/21 11:30 Neut % (Auto) 92.9 % 05/08/21 04:22 Lymph % (Auto) 4.1 % 05/08/21 04:22 [place] % (Auto) 2.0 % 05/08/21 04:22 Eos % (Auto) 0.0 % 05/08/21 04:22 Baso % (Auto) 0.1 % 05/08/21 04:22 Neut # (Auto) 8.53 10^3/uL (1.8-7.7) H 05/08/21 04:22 Lymph # (Auto) 0.4 10^3/uL (0.8-4.8) L 05/08/21 04:22 [place] # (Auto) 0.2 10^3/uL (0.2-0.9) 05/08/21 04:22 Eos # (Auto) 0.0 10^3/uL (0.0-0.8) 05/08/21 04:22 Baso # (Auto) 0.0 10^3/uL (0.0-0.1) 05/08/21 04:22 Absolute Gran (auto) Cancelled 05/03/21 11:30 Nucleated RBC % (auto) 0 % 05/08/21 04:22 Total Counted 100 (0-100) 05/02/21 20:10 Atypical Lymphs % 7.0 % (0-5) H 05/02/21 20:10 Absolute Neutrophils 12.0 10^3/cmm (1.4-6.5) H 05/02/21 20:10 Segmented Neutrophils 71 % 05/02/21 20:10 Abs Segm Neuts (Man) 11.1 10/cmm (1.6-7.1) H 05/02/21 20:10 Band Neutrophils 6.0 % 05/02/21 20:10 Abs Band Neuts (Man) 0.9 10^3/cmm (0.0-1.2) 05/02/21 20:10 Absolute Lymphocytes 2.3 10^3/cmm (1.2-3.4) 05/02/21 20:10 Lymphocytes (Manual) 8 % 05/02/21 20:10 Monocytes (Manual) 1.0 % 05/02/21 20:10 Absolute Monocytes 0.2 10^3/cmm (0.1-0.6) 05/02/21 20:10 Eosinophils (Manual) Not Reportable 05/02/21 20:10 Basophils (Manual) Not Reportable 05/02/21 20:10 Nucleated RBCs 7.0 /100WBC (0-1) H 05/02/21 20:10 Nucleated RBCs # 0.0 /100WBC 05/08/21 04:22 Platelet Estimate Increased (Normal) 05/02/21 20:10 Giant Platelets Trace 05/02/21 20:10 Polychromasia Trace 05/02/21 20:10 PT 19.90 SECONDS (12.1-14.9) H 05/08/21 04:22 INR 1.65 (0.8-1.2) H 05/08/21 04:22 Fibrinogen 537 mg/dL (174-498) H 05/02/21 20:10 D-Dimer >= 20.00 ug/mIFEU (0-0.59) H 05/04/21 03:50 Specimen Type Arterial 05/08/21 04:41 Sample Site Brachial, right 05/08/21 04:41 ABG pH 7.45 (7.35-7.45) 05/08/21 04:41 ABG pCO2 38.9 mmHg (35-45) 05/08/21 04:41 ABG pO2 60.1 mmHg (80.0-100.0) L 05/08/21 04:41 ABG HCO3 26.7 mmol/L (22-26) H 05/08/21 04:41 ABG Base Excess 2.5 mmol/L (-2.0-2.0) H 05/08/21 04:41 Alpesh Test N/a 05/08/21 04:41 Hematocrit 43.4 % (42-52) 05/08/21 04:41 Respiration Rate 20.0 % 05/04/21 05:05 O2 Delivery Device Vent 05/08/21 04:41 FiO2 50.0 % 05/08/21 04:41 Tidal Volume 0.48 05/08/21 04:41 PEEP 8.0 cmH20 05/08/21 04:41 Mophead Trimmer And Wrapper ID Sebastian 05/08/21 04:41 Sodium 147 mmol/L (136-145) H 05/08/21 04:22 Potassium 4.0 mmol/L (3.5-5.1) 05/08/21 04:22 Chloride 117 mmol/L (98-107) H 05/08/21 04:22 Carbon Dioxide 23 mmol/L (22-29) 05/08/21 04:22 Anion Gap 11.0 (5-19) 05/08/21 04:22 BUN 39 mg/dL (8-23) H 05/08/21 04:22 Creatinine 0.7 mg/dL (0.7-1.2) 05/08/21 04:22 GFR Calculation 115.0 mL/min (90-130) 05/08/21 04:22 Glucose 158 mg/dL (65-115) H 05/08/21 04:22 POC Glucose 213 mg/dL (70-110) H 05/08/21 17:30 Estimat Average Glucose 143 05/03/21 11:58 Hemoglobin A1c 6.6 % (4.0-6.0) H 05/03/21 11:58 Calculated Osmolality 317 mOsm/kg (285-295) H 05/08/21 04:22 Lactic Acid 7.0 mmol/L (0.5-2.2) H* 05/02/21 20:10 Lactic Acid (Sepsis) 3.2 mmol/L (0.5-2.2) H 05/02/21 22:56 Lactate 1.9 mmol/L (0.5-2.2) 05/06/21 02:55 Calcium 6.6 mg/dL (8.5-10.5) L 05/08/21 04:22 Phosphorus 2.8 mg/dL (2.5-4.5) 05/08/21 04:22 Magnesium 2.3 mg/dL (1.7-2.3) 05/08/21 04:22 Ferritin 585 ng/mL (30-400) H 05/06/21 02:55 Total Bilirubin 1.4 mg/dL (0.15-1.2) H 05/08/21 04:22 AST 57 U/L (0-40) H 05/08/21 04:22 ALT 35 U/L (0-41) 05/08/21 04:22 Alkaline Phosphatase 90 IU/L (40-130) 05/08/21 04:22 Creatine Kinase 143 U/L (39-308) 05/08/21 04:22 Troponin T Baseline 24 ng/L (0-15) H 05/03/21 05:05 Troponin T 120 Minute 22.98 ng/L (0-15) H 05/03/21 06:45 Delta Troponin T -1.02 ABS# (0-10) L 05/03/21 06:45 Troponin T Hi Sens 6Hr 15.29 ng/L (0-15) H 05/03/21 11:30 Troponin T Hi Sens 6Hr Delta -8.71 ng/L (0-12) L 05/03/21 11:30 C-Reactive Protein 30.8 mg/L (0.0-4.9) H 05/08/21 04:22 NT-Pro-B Natriuret Pep 655 pg/mL (0-125) H 05/08/21 04:22 Total Protein 4.8 g/dL (6.6-8.7) L 05/08/21 04:22 Albumin 2.1 g/dL (3.5-5.2) L 05/08/21 04:22 Globulin 2.7 g/dL (1.3-4.6) 05/08/21 04:22 Procalcitonin 0.26 ng/mL (0-0.5) 05/08/21 04:22 TSH 0.69 uIU/mL (0.27-4.20) 05/03/21 05:05 Vancomycin Trough 15.7 ug/mL (10-15) H 05/06/21 02:55 Nasal/Oral COVID-19 PCR Detected H 05/03/21 18:20 SARS-CoV-2 Ag (Rapid) Negative (Negative) 05/03/21 00:25 Impressions Chest CTA 05/02/21 20:57 IMPRESSION: 1. No evidence for pulmonary embolus. Evaluation is limited by breathing motion artifact. 2. Diffuse ground-glass opacities, consistent with multilobar pneumonia. This pattern is indeterminate and can be seen with COVID-19 pneumonia as well as other infectious etiologies. Radiation Dose CTDIVOL = (mGy): DLP = 514.3 (mGy-cm) Chest X-Ray 05/07/21 07:00 IMPRESSION: Improving bilateral airspace opacities. Micro: Microbiology 05/02/21 21:15 Blood Culture - Final Blood NO GROWTH AFTER 5 DAYS 05/02/21 20:30 Blood Culture - Final Blood NO GROWTH AFTER 5 DAYS A&P Assessment and plan (1) Acute respiratory distress syndrome (ARDS) due to 2019 novel coronavirus: Status: Acute (2) Respiratory failure with hypoxia: Status: Acute Qualifiers: Chronicity: acute Qualified Code(s): J96.01 - Acute respiratory failure with hypoxia (3) ZACHARIAH (acute kidney injury): Status: Acute (4) NSTEMI (non-ST elevated myocardial infarction): Status: Acute (5) Type 2 diabetes mellitus: Status: Acute Qualifiers: Diabetes mellitus truck terminal manager insulin use: unspecified shelter insulin use status Diabetes mellitus complication status: with other specified complication Qualified Code(s): E11.69 - Type 2 diabetes mellitus with other specified complication #Acute hypoxic respiratory failure secondary to ARDS due to COVID-19 pneumonia #MSSA pneumonia #Bilateral DVT and popliteal veins extending into calf veins on venous Doppler; no evidence of PE #NSTEMI type II #Deranged LFT secondary to COVID-19 pneumonia #Diabetes mellitus with A1c 6.6 -Covid PCR + 04/23/21 Pato Willingham, admission 05/02/2021;Intubated 05/03/2021 -Currently intubated, sedated paralyzed and proned 3 sessions -Taper off paralytic and sedation-start awakening trial, once patient is awake initiate breathing trials started on Colton twice daily For opiate withdrawal and pain, will gradually taper off fentanyl -Patient is sensitive to Precedex and becomes bradycardic-try to avoid Precedex and use Ativan 1 mg every 2 as needed for agitation and anxiety during breathing trials -On CMV 480/50%/8 -7.4 5//60/26 -Taper FiO2 - to keep her saturations > 90% -Increase clear secretions from ET tube-recommended to send TTA -Completed remdesivir and currently on dexamethasone; -Baricitinib held due to ongoing active infection -Hypoxia complicated by bilateral DVT and staph pneumonia; CTA ruled out PE -On therapeutic Lovenox for bilateral DVT -Sputum cultures positive for MSSA - , procalcitonin 1.80, On zosyn; -Troponin elevation-likely NSTEMI type II-continue telemetry monitoring; echo normal LV function with EF 55%. Moderate aortic valve calcification. --180 cc last 24 hours / -600 cc since admission-albumin 2.1-given 1 dose of albumin -Sodium 147, renal functions and other electrolytes within normal limits, good urine output so far; corrected calcium 8.1 -Monitor input output and try to keep net negative to even fluid balance; monitor electrolytes and supplement as necessary -Deranged LFTs due to COVID-19 pneumonia-monitor and avoid hepatotoxic medications -A1c 6.6-possible newly diagnosed diabetes-sugars controlled with scale coverage -Continue tube feeding and do not go more than 30 mL/h, stop feeding at least 2 to 3 hours prior awakening and breathing trials -Bowel regimen senna docusate 2 tabs hs -DVT prophylaxis: On therapeutic Lovenox for DVT -GI prophylaxis PPI -Full code -Family updated At this point of time, will treat MSSA pneumonia with Zosyn, bilateral lower extremity DVT with therapeutic Lovenox, continue awakening trials and breathing trials and will plan to extubate once FiO2 is 45% and PEEP 8 Recommendations conveyed to hospitalist, RN, RT taking care of the patient Attestations Medical Necessity Statement*: Acute hypoxic respiratory failure secondary to ARDS due to COVID-19 pneumonia-requiring mechanical ventilation complicated by bilateral DVT and MSSA pneumonia-completed 3 proning sessions and currently on mechanical ventilator with FiO2 55%-we will continue awakening trials and breathing trials Time Spent in Patient Care: Greater than 35 minutes (>than 50% of time spent in counselling and/or direct pt care on unit) . Critical Care Time: The high probability of a clinically significant, sudden or life threatening deterioration of the patient's [pulmonary, cardiac, renal, vascular] system(s) required my full and direct attention, intervention and personal management. The critical care time is as shown. This time is in addition to time spent performing any reported procedures but includes the following: [x] Data and vital sign review and interpretation [x] Patient assessment, examination and intervention [x] Documentation [x] Medication orders and management Critical Care Time (min): 45 Coding Level of Care Code Established Pt Acute Revolving Field Assembler for Chg Fwd Patient Type Established History Comprehensive Exam Comprehensive Medical Decision Making High Complexity Diagnoses Acute respiratory distress syndrome (ARDS) due to 2019 novel coronavirus U07.1; J80 Respiratory failure with hypoxia J96.01 Chronicity: acute ZACHARIAH (acute kidney injury) N17.9 NSTEMI (non-ST elevated myocardial infarction) I21.4 Type 2 diabetes mellitus E11.69 Diabetes mellitus shelter insulin use: unspecified truck terminal manager insulin use status Diabetes mellitus complication status: with other specified complication Time Spent (min) 45
--- NOTE | 2021-05-08 21:28 | PC.NURSE ---
Nurse heard vent alarming. Upon entry to room, nurse noted ET tube was partially extubated. Nurse called out to RT who was in the gold. RT completed extubation and began bagging via bag mask. Fentanyl drip was stopped. Pt stayed responsive. RT placed pt on bipap. Pt tolerating bipap well. Will continue to monitor.
[2021-05-08 21:55] LABS: Glucose Point of Care 178 mg/dL (70-110)
--- NOTE | 2021-05-08 22:29 | PC.NURSE ---
Addendum entered by Radha King RN 05/08/21 22:31: This nurse witnessed YULIANA Mcginnis waste fentanyl drip. Original Note: FENTANYL DRIP WASTE This nurse wasted 93 mL fentanyl IV with YULIANA Garcia.
[2021-05-09] VITALS (52 sets, daily range): BP systolic 102–174; BP diastolic 74–119; PULSE 47–121; RESP 18–42; TEMP 36.6–37.1; O2SAT 83–95
[2021-05-09] MEDS: morphine 4 mg/mL SDV 1 mL 2 MG IVP ×4 (02:17→22:10)
[2021-05-09] MEDS: ipratropium-albuterol 3 mL Neb INHALATION ×4 (02:23→20:25)
[2021-05-09] MEDS: dexmedeTOMIDine 0.9 % NaCL 400 MCG/100 ML PREMIX IV (03:24)
[2021-05-09 03:53] LABS: ABG PCO2 33.9 mmHg (35-45); ABG PH Result 7.49 (7.35-7.45); Arterial Blood Gas Hematocrit 46.5 % (42-52); Blood Gas Allen Test Pos; Blood Gas Sample Site Radial, left; Blood Gas Sample Type Arterial; HCO3 ABG 25.9 mmol/L (22-26); Oxygen Device BIPAP; PO2 ABG 56.9 mmHg (80.0-100.0)
[2021-05-09 04:47] LABS: Basophils % 0.1 %; Eosinophils % 0.2 %; Hematocrit 45.8 % (42.0-52.0); Hemoglobin 14.5 g/dL (11.7-16.6); Lymphocytes # 0.3 10^3/uL (0.8-4.8); Mean Corpuscular HGB Conc 31.7 g/dL (30.0-36.0); Mean Corpuscular Hemoglobin 31.4 pg (28.0-34.0); Mean Corpuscular Volume 99.1 fl (80-94); Mean Platelet Volume 10.3 fL (7.4-10.4); Monocytes # 0.2 10^3/uL (0.2-0.9); Monocytes % 1.7 %; Neutrophils # 9.87 10^3/uL (1.8-7.7); Neutrophils % 93.7 %; Nucleated Red Blood Cells % 0 %; Platelet Count 281 10^3/cmm (130-400); Red Blood Count 4.62 10^6/uL (4.1-5.3); Red Cell Distribution Width 15.2 % (12.1-15.1); White Blood Count 10.5 10^3/uL (4.0-10.0)
[2021-05-09 04:58] LABS: INR 1.48 (0.8-1.2)
[2021-05-09] MEDS: pantoprazole 40 mg SDV IVP ×2 (05:19→17:41)
[2021-05-09 05:32] LABS: Alanine Aminotransferase 60 U/L (0-41); Albumin Level 2.8 g/dL (3.5-5.2); Alkaline Phosphatase 120 IU/L (40-130); Anion Gap 13.4 (5-19); Aspartate Amino Transferase 87 U/L (0-40); Blood Urea Nitrogen 35 mg/dL (8-23); C Reactive Protein 94.6 mg/L (0.0-4.9); Calcium 8.3 mg/dL (8.5-10.5); Carbon Dioxide 26 mmol/L (22-29); Chloride 111 mmol/L (98-107); Globulin 3.4 g/dL (1.3-4.6); Glomerular Filtration Rate 98.6 mL/min (90-130); Glucose 134 mg/dL (65-115); Magnesium 2.5 mg/dL (1.7-2.3); Osmolality Calculated 312 mOsm/kg (285-295); Potassium 4.4 mmol/L (3.5-5.1); Sodium 146 mmol/L (136-145); Total Bilirubin 2.9 mg/dL (0.15-1.2); Total Protein 6.2 g/dL (6.6-8.7)
[2021-05-09 05:44] LABS: NT Pro B Type Natriuretic Pept 819 pg/mL (0-125); Procalcitonin 1.12 ng/mL (0-0.5)
[2021-05-09 05:55] LABS: Creatine Phosphokinase 184 U/L (39-308)
[2021-05-09] MEDS: piperacillin-tazobactam 3.375 GM in sodium chloride 0.9% (plus) 50 ML IV (06:01)
[2021-05-09] MEDS: dexamethasone 4 mg/mL INJ 6 MG IVP (06:02)
[2021-05-09] MEDS: enoxaparin 80 mg/0.8 mL Syringe SUBCUT ×2 (06:03→17:42)
--- NOTE | 2021-05-09 07:00 | PC.NURSE ---
Bedside report done with Rahel BRIDGES
--- NOTE | 2021-05-09 07:36 | XR_ITS ---
WS: [id number] Exam: XR chest 1V portable [id number] Date/Time of Exam: 05/09/2021 7:52 AM Reason For Exam: daily check. self extubated. Comparison 05/07/2021. ET tube and NG tube have been removed. Right perihilar infiltrate is noted and shows little change. T here may be mild infiltrate along the left heart border. No pleural effusions or pneumothorax. Right- sided IJ catheter ends at the cavoatrial junction. Regional bony structures are intact. XR/XR chest 1V portable [id number] IMPRESSION: 1. Right perihilar infiltrate unchanged. There may be mild infiltrate along the left heart border. 2. Right-sided IJ catheter in satisfactory position.
--- NOTE | 2021-05-09 07:39 | PC.NURSE ---
Precedex stopped do to HR in the 30's
[2021-05-09 08:06] LABS: Glucose Point of Care 183 mg/dL (70-110)
[2021-05-09] MEDS: budesonide 0.5 mg/2 mL Neb INHALATION ×2 (08:31→20:25)
--- NOTE | 2021-05-09 08:39 | PC.NURSE ---
Succs and Prop returned to pyxis. Succs and Etomodate at bedside incase of emergent intubation.
[2021-05-09] MEDS: zinc gluconate 50 mg Tablet PO (08:49)
[2021-05-09] MEDS: ascorbic acid 500 mg Tablet PO (08:49)
[2021-05-09] MEDS: vancomycin 1,250 MG/250 ML PIGGYBACK 200 MG IV (08:49)
[2021-05-09] MEDS: LORazepam 2 mg/mL INJ 1 mL IVP ×3 (09:11→21:23)
--- NOTE | 2021-05-09 09:31 | PC.NURSE ---
Pt had what appeared to be a panic attack. HR 120's respirations 38, 02 dropped to 84%. Amusement Park Entertainer gave 2 mg Ativan and remained at pt bedside until pt relaxed. Currently 02 is 91% on 75%. HR 77.
--- NOTE | 2021-05-09 09:40 | PC.NURSE ---
Pt did not do well with taking PO medications do to not being able to be off bipap for a length of time and his mouth being so dry. Mouth swabs done and an ice chip given.
--- NOTE | 2021-05-09 10:27 | PC.CHAP ---
Pastoral Care Encounter/Spiritual Assessment Type of Contact [] Declined oven builder visit [] Patient/Family/Request visit [] Outpatient visit [] Follow-up visit [] Physician referral [] Code/Alert [x] Routine visit [] Staff referral [] Actively dying [] Patient sleeping [] Family support [] [] Out of room [] Palliative care [] [] Receiving care in room [] Pre-surgical visit [] Trauma [] Long length of stay [x] ICU visit [] Other: Relational/Emotional Strength [] Patient feels connected with others/family/visitors/staff [] Distress [] Loneliness/isolation [] Abandonment Spirituality of Patient [] Person of Shaila [] Attends Anabaptist of their Shaila [] Believes in Prayer [] Reads Bible or Sikh materials [] There are Spiritual issues to be addressed It Security Engineer Interventions [x] Prayer [] Active listening [] Non-anxious presence [] Spiritual/emotional support [] Crisis/trauma care [] Spiritual counseling [] Bereavement support [] Provided bereavement packet [] Provided Bible/devotional materials [] Provided toy/stuffed animal, coloring book to patient or family member [] Provided Communion [] Anointing/[place] [] Salvation [x] Completed spiritual assessment [] Other: Impact on Illness or Injury [] Angry [] Fearful [] Anxious [] Often cries [] Exhaustion [] Unable to work [] Unable to attend islam [] Unable to walk/stand [] Unable to read [] Unable to drive [] Unable to eat/drink [] Unable to sleep [] Unable to be with family [] Patient intubated [] Other: Summary Time spent with patient
[2021-05-09] MEDS: chlorhexidine gluconate 0.12% Btl 473 mL 15 ML MUCOUS MEM ×2 (10:58→17:43)
[2021-05-09 11:31] LABS: ABG PCO2 32.6 mmHg (35-45); ABG PH Result 7.49 (7.35-7.45); Alveolar-Arterial Oxygen Gradi 48.6 mmHg (5-10); Arterial Blood Gas Hematocrit 43.8 % (42-52); Blood Gas Operator Identificat GD; Blood Gas Sample Site Brachial, right; Blood Gas Sample Type Arterial; HCO3 ABG 24.8 mmol/L (22-26); HGB O2 Sat 95.2 % (95-100); Ionized Calcium Level - ABG 1.2 mmol/L (1.1-1.4); Methemoglobin 0.8 % (0.4-1.5); Oxygen Device BIPAP; Oxygen Saturation ABG 96.9; PO2 ABG 82.5 mmHg (80.0-100.0); Potassium Level - ABG 4.6 mmol/L (3.5-5.0); Total Hemoglobin 14.3 g/dL (14-18)
--- NOTE | 2021-05-09 12:13 | PM.PN ---
Subjective Subjective: Interval history: Patient was seen and examined this morning,unfortunately he self extubated himself overnight, was placed on BIPAP and so far he has tolerated it. Am ABG, labs, xray and vitals have been reviewed. Medications: Reviewed: Yes Vitals/I&O/Wt Last Vital Signs Temp 97.9 F 05/08/21 12:00 Pulse 78 05/09/21 10:25 Resp 26 H 05/09/21 08:39 BP 155/114 05/09/21 07:30 Pulse Ox 92 05/09/21 10:25 05/08/21 05/09/21 05/09/21 22:59 06:59 14:59 Intake Total 214.584 / 456.167 60.341 / 516.508 422.802 / 422.802 Output Total 700 / 1250 Balance 214.584 / -93.833 -639.659 / -733.492 422.802 / 422.802 Physical Exam Const: COMMON NORMALS: patient oriented x3 HENMT: COMMON NORMALS: normocephalic and atraumatic HEAD & SCALP: normocephalic and atraumatic Resp: OTHER: Coarse Breath sounds B/L. Cardio: COMMON NORMALS: regular rate, regular rhythm, S1 normal heart sound present, S2 normal heart sound present, No gallops present (Cardio), No murmurs present (Cardio), No rub (Cardio) and Peripheral pulses 2+ throughout RATE: regular rate RHYTHM: regular rhythm HEART SOUNDS: S1 normal heart sound present and S2 normal heart sound present PERIPHERAL PULSES: Peripheral pulses 2+ throughout GI: COMMON NORMALS: Normal to inspection, nondistended, normoactive bowel sounds present, Soft to palpation, non-tender, No hepatosplenomegaly present and no masses AUSCULTATION: Yes normoactive bowel sounds PALPATION: Yes Soft to palpation and Yes No hepatosplenomegaly present RECTAL EXAM: Yes deferred Extremity: COMMON NORMALS: no clubbing, cyanosis or edema and no pedal edema Neuro: COMMON NORMALS: patient oriented x3 Urinary Catheter Management^: Dewey: Cath Placed During This Visit: yes, but has since been removed by the nurse Reason for Continuing Indwelling Catheter: Accurate Measurement of Urinary Output in Critically Ill Patients Urinary Catheter Date of Insertion: 05/05/21 Urinary Catheter Time of Insertion: 12:47 Date Urinary Catheter Removed: 05/05/21 Time Urinary Catheter Discontinued: 12:45 Data : 05/09/21 04:00 05/09/21 04:00 A&P Assessment and plan (1) Pneumonia due to 2019-nCoV: Acute hypoxic respiratory failure secondary to COVID-19 pneumonia, with acute respiratory distress syndrome -CT angiogram negative for pulmonary emboli Plan -Continue Dexamethasone 6 mg I.V Daily for 10 days - Completed 5 days course of remdesivir -Continue fentanyl for sedation -Initially on Mechanical ventilation s/p extubation -Completed 3 sessions of proning. -Initially On tube feedings ( Pulmicort 10 cc an hour, free water flushes 200 cc every 4 hours ) -Maintain MAP greater than 65, Levophed as needed -Continue broad-spectrum antibiotic therapy vancomycin, imipenam , doxycycline was stopped. -Sputum culture showing penicillin resistant staph aureus, MRSA nares negative -baricitinib discontinued given sputum culture results -Low-dose sliding scale -Protonix for GI prophylaxis -Therapeutic Lovenox for DVT prophylaxis -Full code bilateral DVTs in both popliteal veins extending into the calf veins, on therapeutic Lovenox Sepsis, resolved, secondary to COVID-19 pneumonia as above ZACHARIAH creatinine up to 1.3, secondary to sepsis, diuretic therapy, COVID-19 pneumonia, urine output 3050, NSTEMI, likely type II NSTEMI, supply demand ischemia from COVID-19 pneumonia as above, respiratory failure, continue telemetry monitoring, order cardiac echocardiogram Hypernatremia : Improving Type 2 diabetes mellitus, insulin sliding scale Status: Acute (2) Respiratory failure with hypoxia: Status: Acute Qualifiers: Chronicity: acute Qualified Code(s): J96.01 - Acute respiratory failure with hypoxia (3) ARDS (adult respiratory distress syndrome): Status: Acute (4) Type 2 diabetes mellitus: Status: Acute Qualifiers: Diabetes mellitus complication status: with other specified complication Diabetes mellitus terminal press operator insulin use: unspecified terminal press operator insulin use status Qualified Code(s): E11.69 - Type 2 diabetes mellitus with other specified complication (5) Sepsis: Status: Acute (6) ZACHARIAH (acute kidney injury): Status: Acute (7) NSTEMI (non-ST elevated myocardial infarction): Status: Acute (8) Hypernatremia: Status: Acute Attestations Medical Necessity Statement*: Patient needs to be in hospital for the management of PNA Coding Level of Care Code Acute X Ray Physician for g Fwd Exam Detailed Diagnoses Pneumonia due to 2019-nCoV U07.1; J12.82 Respiratory failure with hypoxia J96.01 Chronicity: acute ARDS (adult respiratory distress syndrome) J80 Type 2 diabetes mellitus E11.69 Diabetes mellitus complication status: with other specified complication Diabetes mellitus fdc insulin use: unspecified fdc insulin use status Sepsis A41.9 ZACHARIAH (acute kidney injury) N17.9 NSTEMI (non-ST elevated myocardial infarction) I21.4 Hypernatremia E87.0
--- NOTE | 2021-05-09 14:39 | PC.RESP ---
RT Shift Note Frequent safety and respiratory rounds continue. Orders completed as indicated. Patient monitored pre and post treatments throughout shift. Patient [Did.] tolerate treatments appropriately. Condition [DidNotChange]. Patient and/or off premise service representative educated on respiratory treatment and medications. Patient and/or off premise service representative [reinforcement needed]. Will continue to monitor patient progress.
[2021-05-09] MEDS: LORazepam 1 mg Tablet PO (17:42)
[2021-05-09 17:57] LABS: Glucose Point of Care 195 mg/dL (70-110)
--- NOTE | 2021-05-09 18:03 | PC.NURSE ---
Pt requested to have some broth. was able to taken in approx. 50 ml of chicken broth, was slow to swallow but able to. Dr. Damon on floor and notified. No diet orders given at this time.
--- NOTE | 2021-05-09 19:23 | PM.PN ---
Subjective Subjective: Interval history: -Patient seen at bedside today -Overnight patient was extubated and was placed on BiPAP 07/18 65% FiO2 and morning ABG PaO2 noted 56; later ABG showed PO2 82 on 07/18 and FiO2 70%-switched to high flow nasal cannula 50 L and 70% -Patient appeared anxious and intermittently pulling high tidal volumes 800 cc to 1000 cc-calmed down with Ativan 1 mg every 2 hour as needed -Yesterday patient had significant secretions-and today imaging showed right hilar infiltrates-discontinued Zosyn and broaden coverage to vancomycin and imipenem to cover for VAP; will send for sputum culture -Other labs and imaging reviewed Medications: Reviewed: Yes Vitals/I&O/Wt Last Vital Signs Temp 98.7 F 05/09/21 14:00 Pulse 89 05/09/21 17:30 Resp 24 H 05/09/21 17:30 BP 152/101 05/09/21 17:30 Pulse Ox 87 L 05/09/21 17:30 05/09/21 05/09/21 05/09/21 06:59 14:59 22:59 Intake Total 60.341 / 516.508 422.802 / 422.802 125 / 547.802 Output Total 700 / 1250 800 / 800 Balance -639.659 / -733.492 422.802 / 422.802 -675 / -252.198 Physical Exam Narrative: EXAM NARRATIVE: General: lying in bed, following commands HEENT:NCAT, PERRLA, EOMI Neck: Supple Lungs: Bilateral air entry present Heart: s1/s2, RRR Abd: soft, NT, ND, BS + Normoactive Extremities: No edema TACK PULLER: Follows commands and opens eyes, no gross FND SKIN: no rash LDA: # CVC: Right internal jugular vein 05/03/2021 Urinary Catheter Management^: Dewey: Cath Placed During This Visit: yes, but has since been removed by the nurse Reason for Continuing Indwelling Catheter: Accurate Measurement of Urinary Output in Critically Ill Patients Urinary Catheter Date of Insertion: 05/05/21 Urinary Catheter Time of Insertion: 12:47 Date Urinary Catheter Removed: 05/05/21 Time Urinary Catheter Discontinued: 12:45 Data : 05/09/21 04:00 05/09/21 04:00 Other Labs: Laboratory Results WBC 10.5 10^3/uL (4.0-10.0) H 05/09/21 04:00 Corrected WBC Cancelled 05/03/21 11:30 RBC 4.62 10^6/uL (4.1-5.3) 05/09/21 04:00 Hgb 14.5 g/dL (11.7-16.6) 05/09/21 04:00 Hct 45.8 % (42.0-52.0) 05/09/21 04:00 MCV 99.1 fl (80-94) H 05/09/21 04:00 MCH 31.4 pg (28.0-34.0) 05/09/21 04:00 MCHC 31.7 g/dL (30.0-36.0) 05/09/21 04:00 RDW 15.2 % (12.1-15.1) H 05/09/21 04:00 Plt Count 281 10^3/cmm (130-400) 05/09/21 04:00 MPV 10.3 fL (7.4-10.4) 05/09/21 04:00 Gran % Cancelled 05/03/21 11:30 Neut % (Auto) 93.7 % 05/09/21 04:00 Lymph % (Auto) 3.0 % 05/09/21 04:00 Noble % (Auto) 1.7 % 05/09/21 04:00 Eos % (Auto) 0.2 % 05/09/21 04:00 Baso % (Auto) 0.1 % 05/09/21 04:00 Neut # (Auto) 9.87 10^3/uL (1.8-7.7) H 05/09/21 04:00 Lymph # (Auto) 0.3 10^3/uL (0.8-4.8) L 05/09/21 04:00 Noble # (Auto) 0.2 10^3/uL (0.2-0.9) 05/09/21 04:00 Eos # (Auto) 0.0 10^3/uL (0.0-0.8) 05/09/21 04:00 Baso # (Auto) 0.0 10^3/uL (0.0-0.1) 05/09/21 04:00 Absolute Gran (auto) Cancelled 05/03/21 11:30 Nucleated RBC % (auto) 0 % 05/09/21 04:00 Total Counted 100 (0-100) 05/02/21 20:10 Atypical Lymphs % 7.0 % (0-5) H 05/02/21 20:10 Absolute Neutrophils 12.0 10^3/cmm (1.4-6.5) H 05/02/21 20:10 Segmented Neutrophils 71 % 05/02/21 20:10 Abs Segm Neuts (Man) 11.1 10/cmm (1.6-7.1) H 05/02/21 20:10 Band Neutrophils 6.0 % 05/02/21 20:10 Abs Band Neuts (Man) 0.9 10^3/cmm (0.0-1.2) 05/02/21 20:10 Absolute Lymphocytes 2.3 10^3/cmm (1.2-3.4) 05/02/21 20:10 Lymphocytes (Manual) 8 % 05/02/21 20:10 Monocytes (Manual) 1.0 % 05/02/21 20:10 Absolute Monocytes 0.2 10^3/cmm (0.1-0.6) 05/02/21 20:10 Eosinophils (Manual) Not Reportable 05/02/21 20:10 Basophils (Manual) Not Reportable 05/02/21 20:10 Nucleated RBCs 7.0 /100WBC (0-1) H 05/02/21 20:10 Nucleated RBCs # 0.0 /100WBC 05/09/21 04:00 Platelet Estimate Increased (Normal) 05/02/21 20:10 Giant Platelets Trace 05/02/21 20:10 Polychromasia Trace 05/02/21 20:10 PT 18.30 SECONDS (12.1-14.9) H 05/09/21 04:00 INR 1.48 (0.8-1.2) H 05/09/21 04:00 Fibrinogen 537 mg/dL (174-498) H 05/02/21 20:10 D-Dimer >= 20.00 ug/mIFEU (0-0.59) H 05/04/21 03:50 Specimen Type Arterial 05/09/21 11:15 Sample Site Brachial, right 05/09/21 11:15 ABG pH 7.49 (7.35-7.45) H 05/09/21 11:15 ABG pCO2 32.6 mmHg (35-45) L 05/09/21 11:15 ABG pO2 82.5 mmHg (80.0-100.0) 05/09/21 11:15 ABG HCO3 24.8 mmol/L (22-26) 05/09/21 11:15 ABG O2 Saturation 96.9 05/09/21 11:15 ABG Base Excess 2.0 mmol/L (-2.0-2.0) 05/09/21 11:15 Alpesh Test N/a 05/09/21 11:15 A-a O2 Gradient 48.6 mmHg (5-10) H 05/09/21 11:15 Hematocrit 43.8 % (42-52) 05/09/21 11:15 Hgb O2 Saturation 95.2 % (95-100) 05/09/21 11:15 Carboxyhemoglobin 1.0 %THgb (0.4-20.1) 05/09/21 11:15 Methemoglobin 0.8 % (0.4-1.5) 05/09/21 11:15 Total Hemoglobin 14.3 g/dL (14-18) 05/09/21 11:15 Sodium 150.0 mmol/L (131-143) H 05/09/21 11:15 Potassium 4.6 mmol/L (3.5-5.0) 05/09/21 11:15 Glucose 231.0 mg/dL (70-115) H 05/09/21 11:15 Ionized Calcium 1.2 mmol/L (1.1-1.4) 05/09/21 11:15 Respiration Rate 20.0 % 05/04/21 05:05 O2 Delivery Device Bipap 05/09/21 11:15 FiO2 70.0 % 05/09/21 11:15 Tidal Volume 0.48 05/08/21 04:41 PEEP 8.0 cmH20 05/08/21 04:41 Plodding Machine Operator ID [id number] 05/09/21 11:15 Sodium 146 mmol/L (136-145) H 05/09/21 04:00 Potassium 4.4 mmol/L (3.5-5.1) 05/09/21 04:00 Chloride 111 mmol/L (98-107) H 05/09/21 04:00 Carbon Dioxide 26 mmol/L (22-29) 05/09/21 04:00 Anion Gap 13.4 (5-19) 05/09/21 04:00 BUN 35 mg/dL (8-23) H 05/09/21 04:00 Creatinine 0.8 mg/dL (0.7-1.2) 05/09/21 04:00 GFR Calculation 98.6 mL/min (90-130) 05/09/21 04:00 Glucose 134 mg/dL (65-115) H 05/09/21 04:00 POC Glucose 195 mg/dL (70-110) H 05/09/21 17:38 Estimat Average Glucose 143 05/03/21 11:58 Hemoglobin A1c 6.6 % (4.0-6.0) H 05/03/21 11:58 Calculated Osmolality 312 mOsm/kg (285-295) H 05/09/21 04:00 Lactic Acid 7.0 mmol/L (0.5-2.2) H* 05/02/21 20:10 Lactic Acid (Sepsis) 3.2 mmol/L (0.5-2.2) H 05/02/21 22:56 Lactate 1.9 mmol/L (0.5-2.2) 05/06/21 02:55 Calcium 8.3 mg/dL (8.5-10.5) L 05/09/21 04:00 Phosphorus 3.0 mg/dL (2.5-4.5) 05/09/21 04:00 Magnesium 2.5 mg/dL (1.7-2.3) H 05/09/21 04:00 Ferritin 585 ng/mL (30-400) H 05/06/21 02:55 Total Bilirubin 2.9 mg/dL (0.15-1.2) H 05/09/21 04:00 AST 87 U/L (0-40) H 05/09/21 04:00 ALT 60 U/L (0-41) H 05/09/21 04:00 Alkaline Phosphatase 120 IU/L (40-130) 05/09/21 04:00 Creatine Kinase 184 U/L (39-308) 05/09/21 04:00 Troponin T Baseline 24 ng/L (0-15) H 05/03/21 05:05 Troponin T 120 Minute 22.98 ng/L (0-15) H 05/03/21 06:45 Delta Troponin T -1.02 ABS# (0-10) L 05/03/21 06:45 Troponin T Hi Sens 6Hr 15.29 ng/L (0-15) H 05/03/21 11:30 Troponin T Hi Sens 6Hr Delta -8.71 ng/L (0-12) L 05/03/21 11:30 C-Reactive Protein 94.6 mg/L (0.0-4.9) H 05/09/21 04:00 NT-Pro-B Natriuret Pep 819 pg/mL (0-125) H 05/09/21 04:00 Total Protein 6.2 g/dL (6.6-8.7) L D 05/09/21 04:00 Albumin 2.8 g/dL (3.5-5.2) L 05/09/21 04:00 Globulin 3.4 g/dL (1.3-4.6) 05/09/21 04:00 Procalcitonin 1.12 ng/mL (0-0.5) H 05/09/21 04:00 TSH 0.69 uIU/mL (0.27-4.20) 05/03/21 05:05 Vancomycin Trough 15.7 ug/mL (10-15) H 05/06/21 02:55 Nasal/Oral COVID-19 PCR Detected H 05/03/21 18:20 SARS-CoV-2 Ag (Rapid) Negative (Negative) 05/03/21 00:25 Impressions Chest CTA 05/02/21 20:57 IMPRESSION: 1. No evidence for pulmonary embolus. Evaluation is limited by breathing motion artifact. 2. Diffuse ground-glass opacities, consistent with multilobar pneumonia. This pattern is indeterminate and can be seen with COVID-19 pneumonia as well as other infectious etiologies. Radiation Dose CTDIVOL = (mGy): DLP = 514.3 (mGy-cm) Chest X-Ray 05/09/21 07:36 IMPRESSION: 1. Right perihilar infiltrate unchanged. There may be mild infiltrate along the left heart border. 2. Right-sided IJ catheter in satisfactory position. A&P Assessment and plan (1) Acute respiratory distress syndrome (ARDS) due to 2019 novel coronavirus: Status: Acute (2) Respiratory failure with hypoxia: Status: Acute Qualifiers: Chronicity: acute Qualified Code(s): J96.01 - Acute respiratory failure with hypoxia (3) ZACHARIAH (acute kidney injury): Status: Acute (4) NSTEMI (non-ST elevated myocardial infarction): Status: Acute (5) Type 2 diabetes mellitus: Status: Acute Qualifiers: Diabetes mellitus continuous churn buttermaker insulin use: unspecified continuous churn buttermaker insulin use status Diabetes mellitus complication status: with other specified complication Qualified Code(s): E11.69 - Type 2 diabetes mellitus with other specified complication #Acute hypoxic respiratory failure secondary to ARDS due to COVID-19 pneumonia-self extubated and currently on high flow nasal cannula #MSSA pneumonia #Bilateral DVT and popliteal veins extending into calf veins on venous Doppler; no evidence of PE #NSTEMI type II #Deranged LFT secondary to COVID-19 pneumonia; worsening bilateral pain-suspect underlying liver disease patient with chronic alcohol history #Diabetes mellitus with A1c 6.6 -Covid PCR + 04/23/21 Pato Willingham, admitted to [facility] 05/02/2021;Intubated 05/03/2021 -paralyzed and completed proned 3 sessions -Unfortunately self extubated today early hours 05/09/2021 -on Cornelia as needed for opiate withdrawal -Patient is sensitive to Precedex and becomes bradycardic-try to avoid Precedex and use Ativan 1 mg every 2 as needed for agitation and anxiety during breathing trials -ABG showed PO2 82 on BiPAP 07/18 and FiO2 70%-switched to high flow nasal cannula 50 L and 70%; -Taper FiO2 - to keep her saturations > 90% - Patient appeared anxious and intermittently pulling high tidal volumes 800 cc to 1000 cc-calmed down with Ativan 1 mg every 2 hour as needed -Completed remdesivir and currently on dexamethasone; -Baricitinib held due to ongoing active infection -Hypoxia complicated by bilateral DVT and staph pneumonia; CTA ruled out PE -On therapeutic Lovenox for bilateral DVT -Sputum cultures positive for MSSA - , procalcitonin 1.80, On zosyn; -Yesterday patient had significant secretions-and today imaging showed right hilar infiltrates-discontinued Zosyn and broaden coverage to vancomycin and imipenem to cover for VAP; send for sputum culture -Troponin elevation-likely NSTEMI type II-continue telemetry monitoring; echo normal LV function with EF 55%. Moderate aortic valve calcification. --733 cc last 24 hours /-1500 cc since admission-good urine output -Sodium 146, renal functions and other electrolytes within normal limits, good urine output so far; corrected calcium 8.1 -Monitor input output and try to keep net negative to even fluid balance; monitor electrolytes and supplement as necessary -Deranged LFTs due to COVID-19 pneumonia with increasing bilirubin-monitor and avoid hepatotoxic medications recommended abdominal ultrasound; patient with history of alcohol restarted-currently not in withdrawal; Ativan 1 mg every 2 as needed -A1c 6.6-possible newly diagnosed diabetes-sugars controlled with scale coverage -Bedside swallow evaluation and start on clear liquid diets -Bowel regimen senna docusate 2 tabs hs -DVT prophylaxis: On therapeutic Lovenox for DVT -GI prophylaxis PPI -Full code -Family updated Recommendations conveyed to hospitalist, RN, RT taking care of the patient Attestations Medical Necessity Statement*: Acute hypoxic respiratory failure secondary to ARDS due to COVID-19 pneumonia-requiring mechanical ventilation complicated by bilateral DVT and MSSA pneumonia-approximately self extubated today and currently saturating greater than 90% on high flow nasal cannula 50 L 70%-need close ICU monitoring for respiratory status for possible reintubation Time Spent in Patient Care: Greater than 35 minutes (>than 50% of time spent in counselling and/or direct pt care on unit). Critical Care Time: The high probability of a clinically significant, sudden or life threatening deterioration of the patient's [pulmonary, cardiac, hepatic renal, vascular] system(s) required my full and direct attention, intervention and personal management. The critical care time is as shown. This time is in addition to time spent performing any reported procedures but includes the following: [x] Data and vital sign review and interpretation [x] Patient assessment, examination and intervention [x] Documentation [x] Medication orders and management Critical Care Time (min): 45 Coding Level of Care Code Established Pt Acute Insurance Healthcare Representative for Chg Fwd Patient Type Established History Comprehensive Exam Comprehensive Medical Decision Making High Complexity Diagnoses Acute respiratory distress syndrome (ARDS) due to 2019 novel coronavirus U07.1; J80 Respiratory failure with hypoxia J96.01 Chronicity: acute ZACHARIAH (acute kidney injury) N17.9 NSTEMI (non-ST elevated myocardial infarction) I21.4 Type 2 diabetes mellitus E11.69 Diabetes mellitus continuous churn buttermaker insulin use: unspecified long-term insulin use status Diabetes mellitus complication status: with other specified complication Time Spent (min) 45
[2021-05-10] VITALS (67 sets, daily range): BP systolic 115–175; BP diastolic 70–121; PULSE 63–131; RESP 20–36; TEMP 36.5–36.6; O2SAT 81–94
[2021-05-10] MEDS: LORazepam 2 mg/mL INJ 1 mL IVP ×2 (00:23→04:57)
[2021-05-10] MEDS: morphine 4 mg/mL SDV 1 mL 2 MG IVP ×5 (01:25→21:45)
[2021-05-10] MEDS: vancomycin 1,250 MG/250 ML PIGGYBACK 200 MG IV ×2 (01:31→20:18)
[2021-05-10] MEDS: ipratropium-albuterol 3 mL Neb INHALATION ×4 (03:42→20:39)
[2021-05-10] MEDS: pantoprazole 40 mg SDV IVP ×2 (04:44→17:47)
[2021-05-10 05:11] LABS: Basophils % 0.1 %; Hematocrit 45.6 % (42.0-52.0); Hemoglobin 14.4 g/dL (11.7-16.6); Lymphocytes # 0.6 10^3/uL (0.8-4.8); Lymphocytes % 4.3 %; Mean Corpuscular HGB Conc 31.6 g/dL (30.0-36.0); Mean Corpuscular Hemoglobin 31.6 pg (28.0-34.0); Mean Corpuscular Volume 100.2 fl (80-94); Mean Platelet Volume 10.5 fL (7.4-10.4); Monocytes # 0.3 10^3/uL (0.2-0.9); Monocytes % 2.2 %; Neutrophils # 12.16 10^3/uL (1.8-7.7); Neutrophils % 92.4 %; Nucleated Red Blood Cells % 0 %; Platelet Count 267 10^3/cmm (130-400); Red Blood Count 4.55 10^6/uL (4.1-5.3); White Blood Count 13.2 10^3/uL (4.0-10.0)
[2021-05-10 05:33] LABS: Alanine Aminotransferase 68 U/L (0-41); Albumin Level 2.4 g/dL (3.5-5.2); Alkaline Phosphatase 124 IU/L (40-130); Anion Gap 12.3 (5-19); Aspartate Amino Transferase 78 U/L (0-40); Blood Urea Nitrogen 39 mg/dL (8-23); Calcium 8.9 mg/dL (8.5-10.5); Carbon Dioxide 24 mmol/L (22-29); Chloride 119 mmol/L (98-107); Globulin 4.2 g/dL (1.3-4.6); Glomerular Filtration Rate 98.6 mL/min (90-130); Glucose 127 mg/dL (65-115); Osmolality Calculated 323 mOsm/kg (285-295); Potassium 4.3 mmol/L (3.5-5.1); Sodium 151 mmol/L (136-145); Total Bilirubin 2.8 mg/dL (0.15-1.2); Total Protein 6.6 g/dL (6.6-8.7)
[2021-05-10] MEDS: enoxaparin 80 mg/0.8 mL Syringe SUBCUT ×2 (06:01→17:47)
[2021-05-10] MEDS: dexamethasone 4 mg/mL INJ 6 MG IVP (06:02)
--- NOTE | 2021-05-10 06:04 | PC.NURSE ---
Shift Note Pt remained anxious throughout shift. PRN IVP morphine and ativan did seem to help, both the anxiety and the effort of breathing. Pt remained oriented throughout shift. Pt attempted to remove bipap multiple times as well as tele wires, pulse ox sticker, and central line. Pt was reeducated that all monitor wires, IV tubing, and bipap must remain on to help him breathe and get better.
[2021-05-10 08:19] LABS: Glucose Point of Care 142 mg/dL (70-110)
[2021-05-10] MEDS: budesonide 0.5 mg/2 mL Neb INHALATION ×2 (08:28→20:39)
[2021-05-10 08:42] LABS: ABG PH Result 7.52 (7.35-7.45); Alveolar-Arterial Oxygen Gradi 77.5 mmHg (5-10); Arterial Blood Gas Hematocrit 47.9 % (42-52); Base Excess ABG 1.5 mmol/L (-2.0-2.0); Blood Gas Operator Identificat GD; Blood Gas Sample Site Brachial, right; Blood Gas Sample Type Arterial; Carboxyhemoglobin 1.1 %THgb (0.4-20.1); HGB O2 Sat 84.3 % (95-100); Ionized Calcium Level - ABG 1.3 mmol/L (1.1-1.4); Methemoglobin 0.8 % (0.4-1.5); Oxygen Device NC; PO2 ABG 45.9 mmHg (80.0-100.0); Potassium Level - ABG 4.3 mmol/L (3.5-5.0); Total Hemoglobin 15.6 g/dL (14-18)
[2021-05-10] MEDS: ascorbic acid 500 mg Tablet PO (09:14)
[2021-05-10] MEDS: zinc gluconate 50 mg Tablet PO (09:14)
[2021-05-10] MEDS: cholecalciferol (vitamin D3) 1,000 unit Tablet 1000 UNIT PO (09:14)
[2021-05-10] MEDS: dextrose 5% 1,000 ML 75 ML IV ×2 (09:28→21:37)
[2021-05-10 11:30] LABS: Glucose Point of Care 193 mg/dL (70-110)
--- NOTE | 2021-05-10 11:33 | P.PN_ITS ---
Subjective Subjective: Interval history: Patient was seen and examined this morning,unfortunately he has continued to require high supplemental oxygen, patient is not tolerating BIPAP well, and has required 100 % FIO2 @55Ls/Min on HHFONC.Hypernatremia is worsening. Am ABG :Ph:7.52, PCO2: 28, PO2: 45, FIO2: 95% Medications: Reviewed: Yes Vitals/I&O/Wt Last Vital Signs Temp 97.7 F 05/10/21 09:49 Pulse 95 05/10/21 11:05 Resp 25 H 05/10/21 11:05 BP 139/114 05/10/21 08:30 Pulse Ox 92 05/10/21 11:05 05/09/21 05/10/21 05/10/21 22:59 06:59 14:59 Intake Total 225 / 647.802 350 / 997.802 100 / 100 Output Total 800 / 800 Balance -575 / -152.198 350 / 197.802 100 / 100 Physical Exam Const: COMMON NORMALS: patient oriented x3 HENMT: COMMON NORMALS: normocephalic and atraumatic HEAD & SCALP: normocephalic and atraumatic Resp: OTHER: Coarse Breath sounds B/L. Cardio: COMMON NORMALS: regular rate, regular rhythm, S1 normal heart sound present, S2 normal heart sound present, No gallops present (Cardio), No murmurs present (Cardio), No rub (Cardio) and Peripheral pulses 2+ throughout RATE: regular rate RHYTHM: regular rhythm HEART SOUNDS: S1 normal heart sound present and S2 normal heart sound present PERIPHERAL PULSES: Peripheral pulses 2+ throughout GI: COMMON NORMALS: Normal to inspection, nondistended, normoactive bowel sounds present, Soft to palpation, non-tender, No hepatosplenomegaly present and no masses AUSCULTATION: Yes normoactive bowel sounds PALPATION: Yes Soft to palpation and Yes No hepatosplenomegaly present RECTAL EXAM: Yes deferred Extremity: COMMON NORMALS: no clubbing, cyanosis or edema and no pedal edema Neuro: COMMON NORMALS: patient oriented x3 Urinary Catheter Management^: Dewey: Cath Placed During This Visit: yes, but has since been removed by the nurse Reason for Continuing Indwelling Catheter: Accurate Measurement of Urinary Output in Critically Ill Patients Urinary Catheter Date of Insertion: 05/05/21 Urinary Catheter Time of Insertion: 12:47 Date Urinary Catheter Removed: 05/05/21 Time Urinary Catheter Discontinued: 12:45 Data : 05/10/21 04:42 05/10/21 04:42 Micro: Microbiology 05/08/21 18:00 Sputum Culture - Preliminary Sputum - Endotracheal Tube Aspirate Gram Negative Rods A&P Assessment and plan (1) Pneumonia due to 2019-nCoV: Acute hypoxic respiratory failure secondary to COVID-19 pneumonia, with acute respiratory distress syndrome -CT angiogram negative for pulmonary emboli Plan -Continue Dexamethasone 6 mg I.V Daily for 10 days - Completed 5 days course of remdesivir -Completed 3 sessions of proning. -Initially on Mechanical ventilation s/p self extubation -Currently on HHFONC as well as BIPAP -Maintain MAP greater than 65, Levophed as needed -Continue broad-spectrum antibiotic therapy vancomycin, imipenam , doxycycline was stopped earlier. -Sputum culture showing penicillin resistant staph aureus, MRSA nares negative -baricitinib discontinued given sputum culture results -Low-dose sliding scale -Protonix for GI prophylaxis -Therapeutic Lovenox for DVT prophylaxis bilateral DVTs in both popliteal veins extending into the calf veins, on therapeutic Lovenox Sepsis, resolved, secondary to COVID-19 pneumonia as above ZACHARIAH creatinine up to 1.3, secondary to sepsis, diuretic therapy, COVID-19 pne umonia, urine output 3050, NSTEMI, likely type II NSTEMI, supply demand ischemia from COVID-19 pneumonia as above, respiratory failure, continue telemetry monitoring, order cardiac echocardiogram Hypernatremia : On D5W @75 CC/Hr.Monitor BMP Transaminitis :Likely hpoxia mediated. U/s Abdomen : Not a good study Monitor BMP Type 2 diabetes mellitus, insulin sliding scale Status: Acute (2) Respiratory failure with hypoxia: Status: Acute Qualifiers: Chronicity: acute Qualified Code(s): J96.01 - Acute respiratory failure with hypoxia (3) ARDS (adult respiratory distress syndrome): Status: Acute (4) Type 2 diabetes mellitus: Status: Acute Qualifiers: Diabetes mellitus senior living insulin use: unspecified termite exterminator insulin use status Diabetes mellitus complication status: with other specified complication Qualified Code(s): E11.69 - Type 2 diabetes mellitus with other specified complication (5) Sepsis: Status: Acute (6) ZACHARIAH (acute kidney injury): Status: Acute (7) NSTEMI (non-ST elevated myocardial infarction): Status: Acute (8) Hypernatremia: Status: Acute Additional A&P Information Code Status: Full code DVT PPX: On Lovenox Attestations Medical Necessity Statement*: Patient needs to be in hospital for the management of Respiratory failure 2/2 PNA Coding Level of Care Code Acute Laborer Tree Tapping for [facility] Fwd Diagnoses Pneumonia due to 2019-nCoV U07.1; J12.82 Respiratory failure with hypoxia J96.01 Chronicity: acute ARDS (adult respiratory distress syndrome) J80 Type 2 diabetes mellitus E11.69 Diabetes mellitus termite exterminator insulin use: unspecified senior living insulin use status Diabetes mellitus complication status: with other specified complication Sepsis A41.9 ZACHARIAH (acute kidney injury) N17.9 NSTEMI (non-ST elevated myocardial infarction) I21.4 Hypernatremia E87.0
--- NOTE | 2021-05-10 14:28 | PC.RESP ---
RT Shift Note Frequent safety and respiratory rounds continue. Orders completed as indicated. Patient monitored pre and post treatments throughout shift. Patient [Did.] tolerate treatments appropriately. Condition .DidNotChange]. Patient and/or screening representative educated on respiratory treatment and medications. Patient and/or screening representative [unable to comprehend]. Will continue to monitor patient progress.
--- NOTE | 2021-05-10 14:50 | PC.NUTR ---
Addendum entered by Hector Norton 05/12/21 11:39: Error in below recommendation: gradual increase to goal rate of 50 ml/hr, not 60 ml/hr Original Note: Tube feeding recommendations: Unclear nutritional plan at this time, as TF has been stopped and pt is too weak to eat per nurse. If consistent with goals of care, recommend temporarily resuming TF until better able to tolerate oral diet. Pulmocare at 30 ml/hr with 100 ml H2O flushes q 4 hrs to provide 1080 kcal, 45 g protein, 1165 ml H2O. As this amount will not meet estimated kcal/protein needs, if pt is unable to consume oral diet within next 1-3 days, recommend gradual increase to goal rate of 60 ml/hr. See full RD assessments for further details.
[2021-05-10 18:14] LABS: Glucose Point of Care 198 mg/dL (70-110)
--- NOTE | 2021-05-10 19:15 | US_ITS ---
WS: [id number] RIGHT UPPER QUADRANT ULTRASOUND HISTORY: abnormal liver function test COMPARISON: None available. Liver: 18.0 cm in length. Poorly visualized liver. As a large amount of shadowing from the RIGHT uppe r quadrant. Only small portions of the liver are well visualized. Surface does appear slightly irregu lar suggesting cirrhosis or hepatic steatosis. Gallbladder: Not visualized. CBD: Not visualized. Pancreas: Not visualized. Right kidney: 9.2 cm in length. Normal size and echogenicity. No hydronephrosis or mass. Aorta and IVC: Unremarkable abdominal aorta and IVC. No ascites. US/US abdomen limited [id number] IMPRESSION: 1. Difficult and limited RIGHT upper quadrant ultrasound. 2. Liver, pancreas and gallbladder are not well visualized. Gallbladder is not identified. For further evaluation consider CT abdomen and pelvis with IV and oral contrast.
[2021-05-10 20:48] LABS: Glucose Point of Care 147 mg/dL (70-110)
--- NOTE | 2021-05-10 21:54 | PC.NURSE ---
morphine 2mg ivp admin d/t pt increased hr 100-120's and c/o pain to left side. pt unable to give number d/t bipap, so flacc scale used. pt now resting with eyes closed, resp even/unlabored on bipap spo2 90%, hr low 90's.
[2021-05-11] VITALS (68 sets, daily range): BP systolic 78–158; BP diastolic 47–97; PULSE 59–141; RESP 18–44; TEMP 36.6–37.1; O2SAT 67–100
[2021-05-11] MEDS: LORazepam 2 mg/mL INJ 1 mL IVP (01:16)
--- NOTE | 2021-05-11 01:23 | PC.NURSE ---
pt pulling at bipap mask and cvl. 2mg ivp ativan admin per order.
[2021-05-11] MEDS: ipratropium-albuterol 3 mL Neb INHALATION ×4 (02:53→20:40)
--- NOTE | 2021-05-11 03:35 | PC.NURSE ---
pt very agiatated, having a hard time breathing, and pulling at bipap face mask. resp 50-55, spo2 high 60's to 90's fluctuating, hr 145, bp 190's/100's. severe visual tremor noted. pt repositioned at this time. RT and charge nurse called into room.
[2021-05-11] MEDS: morphine 4 mg/mL SDV 1 mL 2 MG IVP (03:39)
[2021-05-11 03:44] LABS: ABG PH Result 7.43 (7.35-7.45); Arterial Blood Gas Hematocrit 47.7 % (42-52); Base Excess ABG 0.1 mmol/L (-2.0-2.0); Blood Gas Sample Type Arterial; HGB O2 Sat 73.3 % (95-100); Ionized Calcium Level - ABG 1.2 mmol/L (1.1-1.4); Methemoglobin 0.6 % (0.4-1.5); Oxygen Saturation ABG 74.5; PO2 ABG 40.7 mmHg (80.0-100.0); Potassium Level - ABG 4.4 mmol/L (3.5-5.0); Total Hemoglobin 15.6 g/dL (14-18)
[2021-05-11 03:45] LABS: Alveolar-Arterial Oxygen Gradi 81.7 mmHg (5-10); Blood Gas Operator Identificat JB; Blood Gas Sample Site Brachial, right; Oxygen Device BIPAP
--- NOTE | 2021-05-11 03:54 | PC.NURSE ---
spoke with SWETHA Moctezuma on pt account. let her know that pt may be intubated depending on ABG results. Rhianna asked about his labs, especially kidney function.
--- NOTE | 2021-05-11 04:00 | PC.NURSE ---
Dr. Asencio at bedside assessing need for intubation. resp rates in the 55's, spo2 70's, HR >110, with bp increasing. RT, charge nurse Michael and YULIANA Colmenares at bedside.
--- NOTE | 2021-05-11 04:12 | XRR_ITS ---
PROCEDURE INFORMATION: Exam: XR Chest Exam date and time: 05/11/2021 4:12 AM Age: 61 years old Clinical indication: Other: Covid / tube placement; Additional info: Intubation placement TECHNIQUE: Imaging protocol: XR of the chest. Views: 1 view. COMPARISON: CR XR chest 1V portable [id number] 05/09/2021 7:40 AM FINDINGS: Tubes, catheters and devices: Endotracheal tube, feeding tube, and central venous catheter. The endotracheal tube terminates 2.3 cm above the ida. Lungs: Emphysematous change, interstitial disease, and asymmetric airspace disease in the setting of reported COVID pneumonitis. Pleural spaces: No significant pneumothorax or pleural effusion. Heart/Mediastinum: No cardiomegaly. Bones/joints: Mild degenerative change. Soft tissues: Bilateral subcutaneous emphysema. Gastrointestinal tract: Bowel dilatation in the visualized upper abdomen, along with colonic interposition. XR/XR chest 1V portable [id number] IMPRESSION: 1. Emphysematous change, interstitial disease, and asymmetric airspace disease in the setting of reported COVID pneumonitis. 2. Endotracheal tube, feeding tube, and central venous catheter. The endotracheal tube terminates 2.3 cm above the ida. 3. Additional findings as described above.
--- NOTE | 2021-05-11 04:30 | PC.NURSE ---
Intubation Note Intubation perfromed by Dr. Courtney. At 0407 30 mg of Etomidate was administered followed by 100 mg of succinylcholine both per DrMaria Teresa order. Color change noted after ET was placed. OG tube inserted after patient intubated. Chest x-ray obtained to verify placement of ET and OG tubes. Propofol, Versed, and Fentanyl were started for sedation.
[2021-05-11] MEDS: midazolam 1 mg/mL INJ 2 mL 2 MG IVP (04:48)
[2021-05-11] MEDS: succinylcholine 20 mg/mL SDV 10mL 100 MG IVP (04:50)
[2021-05-11] MEDS: propofol 1,000 MG/100 ML INJ 2.45 MG IV (05:00)
[2021-05-11] MEDS: FUROsemide 10 mg/mL SDV 4mL 40 MG IVP (05:05)
[2021-05-11] MEDS: pantoprazole 40 mg SDV IVP ×2 (05:05→18:29)
--- NOTE | 2021-05-11 05:30 | PC.NURSE ---
Max for Sedation Drips Dr. Courtney gave verbal orders to max Fentanyl at 150 mcg/hr, Propofol at 60 mcg/kg/min, and Versed at 6 mls/hr.
[2021-05-11 06:08] LABS: Basophils % 0.2 %; Eosinophils % 0.2 %; Hematocrit 47.9 % (42.0-52.0); Lymphocytes # 0.2 10^3/uL (0.8-4.8); Lymphocytes % 2.4 %; Mean Corpuscular HGB Conc 31.3 g/dL (30.0-36.0); Mean Corpuscular Hemoglobin 31.3 pg (28.0-34.0); Mean Corpuscular Volume 99.8 fl (80-94); Mean Platelet Volume 10.4 fL (7.4-10.4); Monocytes % 0.2 %; Neutrophils # 8.13 10^3/uL (1.8-7.7); Neutrophils % 96.2 %; Nucleated Red Blood Cells % 0 %; Platelet Count 234 10^3/cmm (130-400); Red Cell Distribution Width 15.3 % (12.1-15.1); White Blood Count 8.5 10^3/uL (4.0-10.0)
--- NOTE | 2021-05-11 06:19 | ECG_ITS ---
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 Measurements Intervals [place] Rate: 138 P: 55 VA: 122 QRS: 43 QRSD: 71 T: 15 QT: 329 QTc: 499 Interpretive Statements SINUS TACHYCARDIA NONSPECIFIC ST & T-WAVE ABNORMALITY Compared to ECG 05/06/2021 06:37:59 T-wave abnormality now present Sinus bradycardia no longer present Myocardial infarct finding no longer present Prolonged QT interval no longer present Electronically Signed On 05-11-2021 21:08:07 CDT by Ed Alicea M.D. [email or web address] mississippi state [email or web address] hospital [facility].Mobilygen/store/NU/[id number] f
[2021-05-11] MEDS: enoxaparin 80 mg/0.8 mL Syringe SUBCUT ×2 (06:21→18:29)
[2021-05-11 06:22] LABS: Alanine Aminotransferase 65 U/L (0-41); Albumin Level 2.7 g/dL (3.5-5.2); Alkaline Phosphatase 134 IU/L (40-130); Anion Gap 13.7 (5-19); Aspartate Amino Transferase 53 U/L (0-40); Blood Urea Nitrogen 30 mg/dL (8-23); Calcium 8.4 mg/dL (8.5-10.5); Carbon Dioxide 24 mmol/L (22-29); Chloride 116 mmol/L (98-107); Creatinine Clr Calc Pharmacy 87.5788; Globulin 3.8 g/dL (1.3-4.6); Glomerular Filtration Rate 86.1 mL/min (90-130); Glucose 129 mg/dL (65-115); Osmolality Calculated 316 mOsm/kg (285-295); Potassium 4.7 mmol/L (3.5-5.1); Sodium 149 mmol/L (136-145); Total Bilirubin 3.1 mg/dL (0.15-1.2); Total Protein 6.5 g/dL (6.6-8.7)
[2021-05-11] MEDS: dexamethasone 4 mg/mL INJ 6 MG IVP (06:22)
[2021-05-11 06:40] LABS: ABG PCO2 34.4 mmHg (35-45); ABG PH Result 7.42 (7.35-7.45); Arterial Blood Gas Hematocrit 48.5 % (42-52); Base Excess ABG -1.6 mmol/L (-2.0-2.0); Blood Gas Sample Type Arterial; Carboxyhemoglobin 0.9 %THgb (0.4-20.1); HCO3 ABG 22.2 mmol/L (22-26); HGB O2 Sat 85.6 % (95-100); Ionized Calcium Level - ABG 1.2 mmol/L (1.1-1.4); Methemoglobin 0.8 % (0.4-1.5); Oxygen Saturation ABG 87.1; PO2 ABG 54.1 mmHg (80.0-100.0); Potassium Level - ABG 4.5 mmol/L (3.5-5.0); Total Hemoglobin 15.8 g/dL (14-18)
[2021-05-11 06:41] LABS: Alveolar-Arterial Oxygen Gradi 80.2 mmHg (5-10); Blood Gas Operator Identificat JB; Blood Gas Sample Site Brachial, right; Blood Gas Tidal Volume 0.45; Oxygen Device VENT
[2021-05-11] MEDS: propofol 1,000 MG/100 ML INJ 24.49 MG IV (07:23)
[2021-05-11 07:59] LABS: Glucose Point of Care 104 mg/dL (70-110)
[2021-05-11] MEDS: budesonide 0.5 mg/2 mL Neb INHALATION ×2 (08:52→20:40)
[2021-05-11] MEDS: dextrose 5% 1,000 ML 75 ML IV (09:01)
[2021-05-11] MEDS: cholecalciferol (vitamin D3) 1,000 unit Tablet 1000 UNIT PO (09:02)
[2021-05-11] MEDS: zinc gluconate 50 mg Tablet PO (09:02)
[2021-05-11] MEDS: ascorbic acid 500 mg Tablet PO ×2 (09:02→18:29)
[2021-05-11] MEDS: chlorhexidine gluconate 0.12% Btl 473 mL 15 ML MUCOUS MEM ×2 (09:02→18:29)
[2021-05-11 11:48] LABS: Glucose Point of Care 230 mg/dL (70-110)
[2021-05-11] MEDS: propofol 1,000 MG/100 ML INJ 17.15 MG IV ×2 (13:04→18:56)
--- NOTE | 2021-05-11 14:25 | P.PN_ITS ---
Subjective Subjective: Interval history: Patient was seen and examined this morning: Unfortunately due to worsening respiratory distress: He had to be reintubated early this morning. He also developed bilateral subcutaneous emphysema as well as pneumomediastinum. Currently requiring: On mechanical ventilator: Requiring 100% FIO2, PEEP : 10. His other vitals and labs have been reviewed. Medications: Reviewed: Yes Vitals/I&O/Wt Last Vital Signs Temp 97.8 F 05/11/21 00:00 Pulse 84 05/11/21 12:30 Resp 20 H 05/11/21 12:30 BP 94/64 05/11/21 12:30 Pulse Ox 93 05/11/21 12:30 05/10/21 05/11/21 05/11/21 22:59 06:59 14:59 Intake Total 1261.25 / 1461.25 100 / 1561.25 1226.461 / 1226.461 Output Total 650 / 650 750 / 1400 Balance 611.25 / 811.25 -650 / 161.25 1226.461 / 1226.461 Physical Exam Const: COMMON NORMALS: patient oriented x3 HENMT: COMMON NORMALS: normocephalic and atraumatic HEAD & SCALP: normoceph alic and atraumatic Resp: OTHER: Coarse Breath sounds B/L. Cardio: COMMON NORMALS: regular rate, regular rhythm, S1 normal heart sound present, S2 normal heart sound present, No gallops present (Cardio), No murmurs present (Cardio), No rub (Cardio) and Peripheral pulses 2+ throughout RATE: regular rate RHYTHM: regular rhythm HEART SOUNDS: S1 normal heart sound present and S2 normal heart sound present PERIPHERAL PULSES: Peripheral pulses 2+ throughout GI: COMMON NORMALS: Normal to inspection, nondistended, normoactive bowel sounds present, Soft to palpation, non-tender, No hepatosplenomegaly present and no masses AUSCULTATION: Yes normoactive bowel sounds PALPATION: Yes Soft to palpation and Yes No hepatosplenomegaly present RECTAL EXAM: Yes deferred Extremity: COMMON NORMALS: no clubbing, cyanosis or edema and no pedal edema Neuro: COMMON NORMALS: patient oriented x3 Urinary Catheter Management^: Dewey: Cath Placed During This Visit: yes, but has since been removed by the nurse Reason for Continuing Indwelling Catheter: Accurate Measurement of Urinary Output in Critically Ill Patients Urinary Catheter Date of Insertion: 05/05/21 Urinary Catheter Time of Insertion: 12:47 Date Urinary Catheter Removed: 05/05/21 Time Urinary Catheter Discontinued: 12:45 Data : 05/11/21 05:45 05/11/21 18:05 Micro: Microbiology 05/08/21 18:00 Sputum Culture - Preliminary Sputum - Endotracheal Tube Aspirate Gram Negative Rods A&P Assessment and plan (1) Pneumonia due to 2019-nCoV: Acute hypoxic respiratory failure secondary to COVID-19 pneumonia, with acute respiratory distress syndrome -CT angiogram negative for pulmonary emboli Plan -Continue Dexamethasone 6 mg I.V Daily for 10 days - Completed 5 days course of remdesivir -Completed 3 sessions of proning. -Initially on Mechanical ventilation s/p self extubation followed by reintubation on 05/11 -On Versed, propofol and fentanyl for sedation. -Maintain MAP greater than 65, Levophed as needed -Continue broad-spectrum antibiotic therapy vancomycin, imipenam , doxycycline was stopped earlier. -Sputum culture showing penicillin resistant staph aureus, MRSA nares negative, repeat sputum culture GNR -Blood culture: Negative -baricitinib discontinued given sputum culture results -Low-dose sliding scale -Protonix for GI prophylaxis -Therapeutic Lovenox # Bilateral subcutaneous emphysema: Status post bilateral chest tube placement #Pneumomediastinum: bilateral DVTs in both popliteal veins extending into the calf veins, on therapeutic Lovenox Sepsis, resolved, secondary to COVID-19 pneumonia as above ZACHARIAH creatinine up to 1.3, secondary to sepsis, diuretic therapy, COVID-19 pneumonia, urine output 3050, NSTEMI, likely type II NSTEMI, supply demand ischemia from COVID-19 pneumonia as above, respiratory failure, continue telemetry monitoring, order cardiac echocardiogram Hypernatremia : On D5W @75 CC/Hr.Monitor BMP Transaminitis :Likely hpoxia mediated. U/s Abdomen : Not a good study Monitor BMP Type 2 diabetes mellitus, insulin sliding scale Status: Acute (2) Respiratory failure with hypoxia: Status: Acute Qualifiers: Chronicity: acute Qualified Code(s): J96.01 - Acute respiratory failure with hypoxia (3) ARDS (adult respiratory distress syndrome): Status: Acute (4) Type 2 diabetes mellitus: Status: Acute Qualifiers: Diabetes mellitus complication status: with other specified complication Diabetes mellitus manager intermediate insulin use: unspecified manager intermediate insulin use status Qualified Code(s): E11.69 - Type 2 diabetes mellitus with other spe cified complication (5) Sepsis: Status: Acute (6) ZACHARIAH (acute kidney injury): Status: Acute (7) NSTEMI (non-ST elevated myocardial infarction): Status: Acute (8) Hypernatremia: Status: Acute Additional A&P Information Code Status: Full code DVT PPX: On Lovenox Attestations Medical Necessity Statement*: Patient needs to be in hospital for management of ARDS. 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
--- NOTE | 2021-05-11 15:53 | PC.NURSE ---
Family, Carline, called unit and was given update on patient. Also used facetime to view and talk to patient.
[2021-05-11] MEDS: vancomycin 1,250 MG/250 ML PIGGYBACK 200 MG IV (15:58)
--- NOTE | 2021-05-11 16:40 | XRR_ITS ---
PROCEDURE INFORMATION: Exam: XR Chest Exam date and time: 05/11/2021 4:40 PM Age: 61 years old Clinical indication: Condition or disease; Lung condition and disease; Emphysema; Other: Subcutaneous; Additional info: Subcutaneous emphysema evaluation TECHNIQUE: Imaging protocol: XR of the chest. Views: 1 view. COMPARISON: CR (CHEST, ) 05/11/2021 4:48 AM FINDINGS: Tubes, catheters and devices: Endotracheal tube tip is approximately 1.7 cm above the ida. There is a nasogastric tube in place with its tip in the stomach. Right jugular central venous catheter tip is in the superior vena cava. Lungs: Bilateral pulmonary infiltrates, worse on the left than the right increased from previous consistent with a history of COVID-19 infection. Pleural spaces: Unremarkable. No pleural effusion. No pneumothorax. Heart/Mediastinum: Unremarkable. No cardiomegaly. Bones/joints: Unremarkable. Soft tissues: Extensive subcutaneous emphysema not changed. XR/XR chest 1V portable [id number] IMPRESSION: 1. Increasing pulmonary infiltrates. 2. Extensive subcutaneous emphysema. 3. Tubes and lines as described above.
--- NOTE | 2021-05-11 16:41 | PC.NURSE ---
Subcutaneous emphysema changes. Patient had small about of subcutaneous emphysema above bilateral clavicles post intubation 05/11/21. Patient now, within last 15 minutes has had significant change extending throughout neck and bilateral chest just below nipple line. Positive breath sounds bilaterally. Dr. Damon called and notified. CXR ordered.
[2021-05-11 17:32] LABS: ABG PCO2 38.3 mmHg (35-45); ABG PH Result 7.47 (7.35-7.45); Arterial Blood Gas Hematocrit 42.9 % (42-52); Base Excess ABG 4.2 mmol/L (-2.0-2.0); Blood Gas Allen Test Pos; Blood Gas Sample Site Radial, right; Blood Gas Sample Type Arterial; Oxygen Device BIPAP
--- NOTE | 2021-05-11 17:42 | XRR_ITS ---
PROCEDURE INFORMATION: Exam: XR Chest Exam date and time: 05/11/2021 5:42 PM Age: 61 years old Clinical indication: Device placement; Chest tube; Additional info: S/P b/l chest tube placement for b/l subcuteneous emphysema TECHNIQUE: Imaging protocol: XR of the chest. Views: 1 view. COMPARISON: CR XR chest 1V portable [id number] 05/11/2021 4:43 PM FINDINGS: Tubes, catheters and devices: There are bilateral chest tubes in place. Right jugular central venous catheter tip is in the superior vena cava. Nasogastric tube extends into the stomach. Endotracheal tube tip is at the level of the ida. Lungs: Unremarkable. No consolidation. Pleural spaces: Unremarkable. No pleural effusion. No pneumothorax. Heart/Mediastinum: There may be some pneumomediastinum on both sides. Bones/joints: Unremarkable. Soft tissues: There is no change in extensive subcutaneous emphysema. XR/XR chest 1V portable [id number] IMPRESSION: 1. Bilateral chest tubes. 2. No pneumothorax is identified. 3. Extensive subcutaneous emphysema and suspected pneumomediastinum. 4. Low position of endotracheal tube.
--- NOTE | 2021-05-11 17:52 | PM.CCN ---
Critical Care Event Note Critical Care Event The high probability of a clinically significant, sudden or life threatening deterioration of the patient's [respiratory] system(s) required my full and direct attention, intervention and personal management. The critical care time is as shown. This time is in addition to time spent performing any reported procedures but includes the following: [x] Data and vital sign review and interpretation [x] Patient assessment, examination and intervention [x] Documentation Dr. Damon consulted me patient in the ICU has severe Covid and is on the ventilator. Is developed subcutaneous air bilaterally and is progressively worsened throughout the day. Is requesting chest tube placement. Reviewed the chest x-ray there is no clear pneumothorax however there is evidence of pneumomediastinum and significant subcutaneous air noted supraclavicular bilaterally there is also subcutaneous air on the left lateral chest wall. Chest tubes placed bilaterally. No complications. Critical Care Time Critical Care Time: Code activated: No Critical Care Time (min): 0 Procedures Chest Tube^ Chest Tube 1: Chest tube location: Mid-Axillary Chest (Left chest) Size of tube: 28 Chest tube procedure: Yes sterile drapes applied and other Tube sutured to skin: Yes Sterile dressing applied: Yes Incision made with: #10 blade Post procedure: sutured to skin and sterile dressing applied Tube Drainage: none Post procedure CXR?: Yes Patient tolerated procedure: Yes Chest Tube 2: Chest tube location: Mid-Axillary Chest Size of tube: 28 Chest tube procedure: Yes sterile drapes applied and other Tube sutured to skin: Yes Sterile dressing applied: Yes Incision made with: #10 blade Post procedure: sutured to skin and sterile dressing applied Tube Drainage: none Post procedure CXR?: Yes Patient tolerated procedure: Yes Coding Level of Care Code Acute Director Loss Prevention for [facility]
--- NOTE | 2021-05-11 18:21 | PC.NURSE ---
Emergent chest tubes placed bilaterally at 1730.
[2021-05-11 18:32] LABS: Anion Gap 15.8 (5-19); Blood Urea Nitrogen 39 mg/dL (8-23); Calcium 7.7 mg/dL (8.5-10.5); Carbon Dioxide 23 mmol/L (22-29); Chloride 111 mmol/L (98-107); Glomerular Filtration Rate 56.3 mL/min (90-130); Glucose 258 mg/dL (65-115); Osmolality Calculated 316 mOsm/kg (285-295); Potassium 5.8 mmol/L (3.5-5.1); Sodium 144 mmol/L (136-145)
[2021-05-11 18:35] LABS: Glucose Point of Care 227 mg/dL (70-110)
[2021-05-11] MEDS: sennosides-docusate Tablet 2 TAB PO (20:23)
--- NOTE | 2021-05-11 20:40 | PC.NURSE ---
moderate leak noted to L chest tube with no bubbling in suction chamber, Dr. Courtney at bedside. after changing dressing and packing with petroleum gauze air leak down to grade one at this time
--- NOTE | 2021-05-11 22:05 | PC.NURSE ---
Grade 1 air leak with intermittent grade 2 noted
--- NOTE | 2021-05-11 23:15 | PC.NURSE ---
Dr. Courtney notified of persistent low grade air leak, this nurse advised that is acceptable as long as O2 sat WNL and patient does not deteriorate
--- NOTE | 2021-05-11 23:28 | PC.NURSE ---
person to notify called, updated on condition, very upset that there was not anything noted about anyone calling about patient
[2021-05-12] VITALS (40 sets, daily range): BP systolic 89–121; BP diastolic 60–78; PULSE 51–98; RESP 18–22; TEMP 36.6–36.8; O2SAT 88–97
[2021-05-12] MEDS: propofol 1,000 MG/100 ML INJ 17.15 MG IV (00:44)
[2021-05-12] MEDS: ipratropium-albuterol 3 mL Neb INHALATION ×4 (02:46→20:51)
[2021-05-12 05:22] LABS: Basophils % 0.2 %; Eosinophils % 0.1 %; Hematocrit 41.9 % (42.0-52.0); Hemoglobin 12.9 g/dL (11.7-16.6); Lymphocytes # 0.9 10^3/uL (0.8-4.8); Lymphocytes % 4.7 %; Mean Corpuscular HGB Conc 30.8 g/dL (30.0-36.0); Mean Corpuscular Hemoglobin 31.5 pg (28.0-34.0); Mean Corpuscular Volume 102.4 fl (80-94); Monocytes # 0.3 10^3/uL (0.2-0.9); Monocytes % 1.6 %; Neutrophils # 17.94 10^3/uL (1.8-7.7); Neutrophils % 92.3 %; Nucleated Red Blood Cells % 0 %; Platelet Count 136 10^3/cmm (130-400); Red Blood Count 4.09 10^6/uL (4.1-5.3); Red Cell Distribution Width 15.3 % (12.1-15.1); White Blood Count 19.4 10^3/uL (4.0-10.0)
--- NOTE | 2021-05-12 05:27 | PC.NURSE ---
Moderate bleeding around left chest tube noted, clotting labs drawn and sent to lab, reported to daniel Olivares given to hold AM lovenox
[2021-05-12 05:41] LABS: INR 1.34 (0.8-1.2)
[2021-05-12 05:44] LABS: Partial Thromboplastin Time 35.1 SECONDS (23.9-36.7)
[2021-05-12 05:45] LABS: ABG PCO2 38.8 mmHg (35-45); ABG PH Result 7.42 (7.35-7.45); Alveolar-Arterial Oxygen Gradi 49.6 mmHg (5-10); Arterial Blood Gas Hematocrit 41.2 % (42-52); Base Excess ABG 0.5 mmol/L (-2.0-2.0); Blood Gas Allen Test Pos; Blood Gas Operator Identificat JB; Blood Gas Sample Site Brachial, right; Blood Gas Sample Type Arterial; Blood Gas Tidal Volume 0.45; Carboxyhemoglobin 0.8 %THgb (0.4-20.1); HGB O2 Sat 93.2 % (95-100); Ionized Calcium Level - ABG 1.2 mmol/L (1.1-1.4); Oxygen Device VENT; Oxygen Saturation ABG 94.9; PO2 ABG 69.4 mmHg (80.0-100.0); Potassium Level - ABG 4.1 mmol/L (3.5-5.0); Total Hemoglobin 13.4 g/dL (14-18)
[2021-05-12 05:49] LABS: Alanine Aminotransferase 47 U/L (0-41); Albumin Level 2.1 g/dL (3.5-5.2); Alkaline Phosphatase 131 IU/L (40-130); Anion Gap 12.3 (5-19); Aspartate Amino Transferase 38 U/L (0-40); Blood Urea Nitrogen 33 mg/dL (8-23); C Reactive Protein 163.5 mg/L (0.0-4.9); Calcium 7.9 mg/dL (8.5-10.5); Carbon Dioxide 24 mmol/L (22-29); Chloride 110 mmol/L (98-107); Creatinine Clr Calc Pharmacy 87.5788; D Dimer 2.65 ug/mIFEU (0-0.59); Globulin 3.5 g/dL (1.3-4.6); Glomerular Filtration Rate 86.1 mL/min (90-130); Glucose 180 mg/dL (65-115); Osmolality Calculated 306 mOsm/kg (285-295); Potassium 4.3 mmol/L (3.5-5.1); Sodium 142 mmol/L (136-145); Total Bilirubin 3.1 mg/dL (0.15-1.2); Total Protein 5.6 g/dL (6.6-8.7)
[2021-05-12 05:51] LABS: Fibrinogen 489 mg/dL (174-498)
[2021-05-12 05:52] LABS: Procalcitonin 13.17 ng/mL (0-0.5)
[2021-05-12] MEDS: pantoprazole 40 mg SDV IVP ×2 (06:00→17:50)
[2021-05-12] MEDS: dexamethasone 4 mg/mL INJ 6 MG IVP (06:00)
--- NOTE | 2021-05-12 06:00 | XRR_ITS ---
PROCEDURE INFORMATION: Exam: XR Chest Exam date and time: 05/12/2021 6:00 AM Age: 61 years old Clinical indication: Shortness of breath; Additional info: Pna TECHNIQUE: Imaging protocol: XR of the chest. Views: 1 view. COMPARISON: CR (CHEST, ) 05/11/2021 5:49 PM FINDINGS: Tubes, catheters and devices: Endotracheal tube, feeding tube, central venous catheter, and bilateral thoracostomy tubes. The endotracheal tube terminates 7 mm above the ida. Lungs: Interstitial and worsening left-sided airspace disease. Pleural spaces: Trace left pneumothorax. Heart/Mediastinum: Residual pneumomediastinum. No cardiomegaly. Bones/joints: Mild degenerative change. Soft tissues: Subcutaneous emphysema. XR/XR chest 1V portable [id number] IMPRESSION: 1. Interstitial and worsening left-sided airspace disease. 2. Trace left pneumothorax. 3. Endotracheal tube, feeding tube, central venous catheter, and bilateral thoracostomy tubes. The endotracheal tube terminates 7 mm above the ida.
[2021-05-12] MEDS: zinc gluconate 50 mg Tablet PO (09:03)
[2021-05-12] MEDS: ascorbic acid 500 mg Tablet PO ×2 (09:03→17:50)
[2021-05-12] MEDS: cholecalciferol (vitamin D3) 1,000 unit Tablet 1000 UNIT PO (09:03)
[2021-05-12] MEDS: vancomycin 1,250 MG/250 ML PIGGYBACK 200 MG IV (09:03)
[2021-05-12] MEDS: chlorhexidine gluconate 0.12% Btl 473 mL 15 ML MUCOUS MEM ×2 (09:05→17:51)
[2021-05-12] MEDS: budesonide 0.5 mg/2 mL Neb INHALATION ×2 (09:48→20:51)
[2021-05-12 11:07] LABS: Glucose Point of Care 159 mg/dL (70-110)
--- NOTE | 2021-05-12 11:37 | PC.NUTR ---
Tube feeding recommendation: Pt receiving 735 kcal total X 7 days (05/05-05/11) for an average of 105 kcal per day. Pulmocare currently running at 10 ml/hr. Recommend increase Pulmocare rate as tolerated to 50 ml/hr, continuing with 100 ml H2O flush q 4 hrs, to provide 1800 kcal, 76 g protein, and 1542 ml H2O. Additional 129 kcal/day from propofol at current rate. Recommend obtain current weight, as most recent is from 05/02/21. See full RD assessment for further details.
[2021-05-12 11:40] LABS: Glucose Point of Care 174 mg/dL (70-110)
--- NOTE | 2021-05-12 13:03 | P.PN_ITS ---
Subjective Subjective: Interval history: Patient was seen and examined this morning: Continue to be on mechanical ventilation, Fio2: 70 % PEEP of 10 , lt chest tube has bloody drainage,H:H has remained stable, am dose of lovenox was held.Will continue with therapeutic lovenox, Persistent B/L anterior chest wall subcutaneous emphysema, with interval development of Trace left pneumothorax. Medications: Reviewed: Yes Vitals/I&O/Wt Last Vital Signs Temp 97.8 F 05/12/21 10:00 Pulse 65 05/12/21 12:00 Resp 18 05/12/21 12:00 BP 90/67 05/12/21 12:00 Pulse Ox 93 05/12/21 12:00 05/11/21 05/12/21 05/12/21 22:59 06:59 14:59 Intake Total 2040.297 / 3427.413 264.316 / 3691.729 467.867 / 467.867 Output Total 800 / 800 550 / 1350 Balance 1240.297 / 2627.413 -285.684 / 2341.729 467.867 / 467.867 Physical Exam Const: COMMON NORMALS: patient oriented x3 HENMT: COMMON NORMALS: normocephalic and atraumatic HEAD & SCALP: normocephalic and atraumatic Resp: OTHER: Coarse Breath sounds B/L. Cardio: COMMON NORMALS: regular rate, regular rhythm, S1 normal heart sound present, S2 normal heart sound present, No gallops present (Cardio), No murmurs present (Cardio), No rub (Cardio) and Peripheral pulses 2+ throughout RATE: regular rate RHYTHM: regular rhythm HEART SOUNDS: S1 normal heart sound present and S2 normal heart sound present PERIPHERAL PULSES: Peripheral pulses 2+ throughout GI: COMMON NORMALS: Normal to inspection, nondistended, normoactive bowel sounds present, Soft to palpation, non-tender, No hepatosplenomegaly present and no masses AUSCULTATION: Yes normoactive bowel sounds PALPATION: Yes Soft to palpation and Yes No hepatosplenomegaly present RECTAL EXAM: Yes deferred Extremity: COMMON NORMALS: no clubbing, cyanosis or edema and no pedal edema Neuro: COMMON NORMALS: patient oriented x3 Urinary Catheter Management^: Dewey: Cath Placed During This Visit: yes, but has since been removed by the nurse Reason for Continuing Indwelling Catheter: Accurate Measurement of Urinary Output in Critically Ill Patients Urinary Catheter Date of Insertion: 05/05/21 Urinary Catheter Time of Insertion: 12:47 Date Urinary Catheter Removed: 05/05/21 Time Urinary Catheter Discontinued: 12:45 Data : 05/12/21 04:10 05/12/21 04:10 Micro: Microbiology 05/11/21 16:45 Gram Stain - Final Sputum - Endotracheal Tube Aspirate Sputum Culture - Preliminary 05/08/21 18:00 Sputum Culture - Final Sputum - Endotracheal Tube Aspirate Stenotrophomonas maltophilia A&P Assessment and plan (1) Pneumonia due to 2019-nCoV: Acute hypoxic respiratory failure secondary to COVID-19 pneumonia, with acute respiratory distress syndrome -CT angiogram negative for pulmonary emboli Plan -Continue Dexamethasone 6 mg I.V Daily for 10 days - Completed 5 days course of remdesivir -Completed 3 sessions of proning. -Initially on Mechanical ventilation s/p self extubation followed by reintubati on on 05/11 -On Versed, propofol and fentanyl for sedation. -Maintain MAP greater than 65, Levophed as needed -Continue broad-spectrum antibiotic therapy vancomycin, imipenam , doxycycline was stopped earlier. -Sputum culture showing penicillin resistant staph aureus, MRSA nares negative, repeat sputum culture GNR -Blood culture: Negative -baricitinib discontinued given sputum culture results -Low-dose sliding scale -Protonix for GI prophylaxis -Therapeutic Lovenox # Bilateral subcutaneous emphysema: Status post bilateral chest tube placement #Pneumomediastinum: #Trace left pneumothorax bilateral DVTs in both popliteal veins extending into the calf veins, on therapeutic Lovenox Sepsis, resolved, secondary to COVID-19 pneumonia as above ZACHARIAH creatinine up to 1.3, secondary to sepsis, diuretic therapy, COVID-19 pneumonia, urine output 3050, NSTEMI, likely type II NSTEMI, supply demand ischemia from COVID-19 pneumonia as above, respiratory failure, continue telemetry monitoring, order cardiac echocardiogram Hypernatremia : On D5W @75 CC/Hr.Monitor BMP Transaminitis :Likely hpoxia mediated. U/s Abdomen : Not a good study Monitor BMP Type 2 diabetes mellitus, insulin sliding scale Status: Acute (2) Respiratory failure with hypoxia: Status: Acute Qualifiers: Chronicity: acute Qualified Code(s): J96.01 - Acute respiratory failure with hypoxia (3) ARDS (adult respiratory distress syndrome): Status: Acute (4) Type 2 diabetes mellitus: Status: Acute Qualifiers: Diabetes mellitus complication status: with other specified complication Diabetes mellitus buttermaker continuous churn insulin use: unspecified detention insulin use status Qualified Code(s): E11.69 - Type 2 diabetes mellitus with other specified complication (5) Sepsis: Status: Acute (6) ZACHARIAH (acute kidney injury): Status: Acute (7) NSTEMI (non-ST elevated myocardial infarction): Status: Acute (8) Hypernatremia: Status: Acute Additional A&P Information Code Status: Full code DVT PPX: On Lovenox Attestations Medical Necessity Statement*: Patient needs to be in hospital for the manage ment of R/F 2/2 PNA Coding Level of Care Code Acute Pipe 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
[2021-05-12] MEDS: FUROsemide 10 mg/mL SDV 2mL 20 MG IVP (14:11)
[2021-05-12 18:30] LABS: Glucose Point of Care 179 mg/dL (70-110)
[2021-05-12] MEDS: sennosides-docusate Tablet 2 TAB PO (20:04)
[2021-05-12] MEDS: enoxaparin 80 mg/0.8 mL Syringe SUBCUT (20:04)
[2021-05-12 20:57] LABS: Glucose Point of Care 168 mg/dL (70-110)
[2021-05-12] MEDS: levofloxacin-dextrose 5 % 750 MG/150 ML PREMIX 100 MG IV (22:32)
[2021-05-13] VITALS (105 sets, daily range): BP systolic 70–145; BP diastolic 42–93; PULSE 71–135; RESP 18–33; TEMP 35.9–37.1; O2SAT 70–95
[2021-05-13] MEDS: vancomycin 1,250 MG/250 ML PIGGYBACK 200 MG IV ×2 (01:24→20:21)
[2021-05-13] MEDS: ipratropium-albuterol 3 mL Neb INHALATION ×4 (03:01→20:37)
[2021-05-13 04:22] LABS: ABG PCO2 37.1 mmHg (35-45); ABG PH Result 7.43 (7.35-7.45); Alveolar-Arterial Oxygen Gradi 57.2 mmHg (5-10); Arterial Blood Gas Hematocrit 41.4 % (42-52); Base Excess ABG 0.6 mmol/L (-2.0-2.0); Blood Gas Sample Site Brachial, right; Blood Gas Sample Type Arterial; Blood Gas Tidal Volume 0.45; Carboxyhemoglobin 1.1 %THgb (0.4-20.1); HCO3 ABG 24.7 mmol/L (22-26); HGB O2 Sat 83.1 % (95-100); Ionized Calcium Level - ABG 1.2 mmol/L (1.1-1.4); Methemoglobin 0.3 % (0.4-1.5); Oxygen Device VENT; Oxygen Saturation ABG 84.3; Potassium Level - ABG 4.6 mmol/L (3.5-5.0); Total Hemoglobin 13.5 g/dL (14-18)
--- NOTE | 2021-05-13 05:00 | XRR_ITS ---
PROCEDURE INFORMATION: Exam: XR Chest Exam date and time: 05/13/2021 5:00 AM Age: 61 years old Clinical indication: Shortness of breath; Additional info: Pna TECHNIQUE: Imaging protocol: XR of the chest. Views: 1 view. COMPARISON: CR (CHEST, ) 05/12/2021 8:21 AM FINDINGS: Tubes, catheters and devices: Endotracheal tube tip approximately 3 cm cephalad to the ida. Enteric tube extends off the inferior margin of the radiograph reaching at least the gastric body. Left chest tube tip at the apex. Right chest tube tip lateral to the hilum. Right IJ central line tip near the cavoatrial junction. Lungs: Bilateral interstitial and alveolar opacities with some improvement on the left. Pleural spaces: Small left pneumothorax is slightly increased since comparison. No visible pneumothorax on the right. No large effusions. Heart/Mediastinum: Unchanged pneumomediastinum. No cardiomegaly. Bones/joints: Unremarkable. Soft tissues: Diffuse subcutaneous emphysema redemonstrated. XR/XR chest 1V portable [id number] IMPRESSION: 1. Small left pneumothorax with chest tube in place, slightly increased from comparison. 2. No pneumothorax seen on the right. Right chest tube noted. 3. Unchanged small pneumomediastinum. 4. Bilateral patchy interstitial and alveolar opacities redemonstrated with some interval improvement on the left. 5. Diffuse subcutaneous emphysema overall similar to prior.
[2021-05-13] MEDS: morphine 4 mg/mL SDV 1 mL 2 MG IVP (05:20)
[2021-05-13] MEDS: pantoprazole 40 mg SDV IVP ×2 (05:20→18:04)
--- NOTE | 2021-05-13 05:57 | ECG_ITS ---
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1960 Requested By: Edna Courtney Order Number: [id number] Reading MD: YANCI PEREYRA Measurements Intervals [place] Rate: 135 P: NE: QRS: 57 QRSD: 72 T: 33 QT: 304 QTc: 457 Interpretive Statements SINUS TACHYCARDIA CONDUCTION OR VENTRICULAR PREMATURE COMPLEXES ABNORMAL RHYTHM ECG INTERPRETATION BASED ON A DEFAULT AGE OF 40 YEARS Compared to ECG 05/11/2021 06:15:03 THERE IS NO CHANGE Electronically Signed On 05-14-2021 20:22:15 CDT by YANCI PEREYRA [email or web address] general [email or web address] Internationalsuburban community [facility].Nexstim/store/NU/[id number] f
[2021-05-13] MEDS: propofol 1,000 MG/100 ML INJ 4.9 MG IV ×2 (06:02→22:30)
[2021-05-13 06:08] LABS: INR 1.32 (0.8-1.2)
[2021-05-13 06:11] LABS: Partial Thromboplastin Time 33.5 SECONDS (23.9-36.7)
[2021-05-13 06:16] LABS: C Reactive Protein 153.1 mg/L (0.0-4.9); Fibrinogen 540 mg/dL (174-498)
[2021-05-13 06:18] LABS: D Dimer 2.48 ug/mIFEU (0-0.59); Procalcitonin 5.33 ng/mL (0-0.5)
--- NOTE | 2021-05-13 06:19 | XRR_ITS ---
PROCEDURE INFORMATION: Exam: XR Chest Exam date and time: 05/13/2021 6:19 AM Age: 61 years old Clinical indication: Shortness of breath; Additional info: Needle decompression TECHNIQUE: Imaging protocol: XR of the chest. Views: 1 view. COMPARISON: CR XR chest 1V portable [id number] 05/13/2021 5:12 AM FINDINGS: Tubes, catheters and devices: Similar position of left surgical chest tube with tip near the apex. New left anterior upper small bore pleural drain. Small left pneumothorax appears unchanged. Similar position of right surgical chest tube with tip lateral to the hilum. No visible right pneumothorax. Enteric tube tip extends off the inferior margin of the radiograph reaching at least the gastric body. Endotracheal tube tip near the ida; recommend retracting 3-4 cm. Right IJ central line tip overlies the cavoatrial junction. Lungs: Low lung volumes with diffuse patchy interstitial and alveolar opacities, with interval increase on the left. Pleural spaces: See Tubes, catheters and devices finding. Heart/Mediastinum: Unremarkable. No cardiomegaly. Bones/joints: Unremarkable. Soft tissues: Diffuse subcutaneous emphysema again left greater than right. Other findings: No large effusions. XR/XR chest 1V portable [id number] IMPRESSION: 1. Interval placement of left anterior pleural drain. Small persistent left pneumothorax, similar in size to comparison. Left apical surgical tube unchanged. 2. Right chest tube remains. No visible right-sided pneumothorax. 3. Diffuse patchy interstitial and alveolar opacities again noted, with increased confluence on the left which may be related to edema or pneumonia. 4. Endotracheal tube tip near the ida; recommend retracting 3-4 cm. 5. Extensive bilateral subcutaneous emphysema again noted. 6. Other support devices as described.
--- NOTE | 2021-05-13 07:12 | PC.NURSE ---
Patient's status deteriorated during shift, physician updated. Additional sedation, pressors added; third chest tube added.
[2021-05-13] MEDS: dexamethasone 4 mg/mL INJ 6 MG IVP (07:43)
[2021-05-13] MEDS: sodium chloride 0.9% 500 ML IV (07:46)
[2021-05-13] MEDS: cisatracurium 100 MG in sodium chloride 0.9% 50 ML IV (08:18)
[2021-05-13 08:19] LABS: Glucose Point of Care 97 mg/dL (70-110)
[2021-05-13] MEDS: budesonide 0.5 mg/2 mL Neb INHALATION ×2 (08:28→20:37)
[2021-05-13] MEDS: zinc gluconate 50 mg Tablet PO (10:30)
[2021-05-13] MEDS: chlorhexidine gluconate 0.12% Btl 473 mL 15 ML MUCOUS MEM ×2 (10:30→18:07)
[2021-05-13] MEDS: cholecalciferol (vitamin D3) 1,000 unit Tablet 1000 UNIT PO (10:30)
[2021-05-13] MEDS: ascorbic acid 500 mg Tablet PO ×2 (10:31→18:07)
[2021-05-13 12:00] LABS: Glucose Point of Care 172 mg/dL (70-110)
[2021-05-13 12:14] LABS: Basophils # 0.1 10^3/uL (0.0-0.1); Basophils % 0.4 %; Eosinophils # 0.4 10^3/uL (0.0-0.8); Eosinophils % 1.5 %; Hematocrit 41.8 % (42.0-52.0); Hemoglobin 13.2 g/dL (11.7-16.6); Lymphocytes # 0.2 10^3/uL (0.8-4.8); Lymphocytes % 0.8 %; Mean Corpuscular HGB Conc 31.6 g/dL (30.0-36.0); Mean Corpuscular Hemoglobin 31.7 pg (28.0-34.0); Mean Corpuscular Volume 100.5 fl (80-94); Mean Platelet Volume 11.8 fL (7.4-10.4); Monocytes # 0.2 10^3/uL (0.2-0.9); Monocytes % 0.7 %; Neutrophils # 26.08 10^3/uL (1.8-7.7); Nucleated Red Blood Cells % 0 %; Platelet Count 125 10^3/cmm (130-400); Red Blood Count 4.16 10^6/uL (4.1-5.3); Red Cell Distribution Width 15.2 % (12.1-15.1); White Blood Count 28.5 10^3/uL (4.0-10.0)
[2021-05-13 12:49] LABS: Alanine Aminotransferase 52 U/L (0-41); Alkaline Phosphatase 301 IU/L (40-130); Aspartate Amino Transferase 62 U/L (0-40); Blood Urea Nitrogen 47 mg/dL (8-23); Calcium 7.8 mg/dL (8.5-10.5); Carbon Dioxide 21 mmol/L (22-29); Chloride 103 mmol/L (98-107); Globulin 3.3 g/dL (1.3-4.6); Glomerular Filtration Rate 56.3 mL/min (90-130); Glucose 184 mg/dL (65-115); Osmolality Calculated 301 mOsm/kg (285-295); Sodium 137 mmol/L (136-145); Total Bilirubin 5.7 mg/dL (0.15-1.2); Total Protein 5.3 g/dL (6.6-8.7)
[2021-05-13 13:04] LABS: Anion Gap 17.8 (5-19); Potassium 4.8 mmol/L (3.5-5.1)
[2021-05-13 13:05] LABS: Neutrophils % 96.6 %; Slide Review Slide Review Perform
[2021-05-13] MEDS: norepinephrine 8 MG in dextrose 5 % 500 ML 68.58 MG IV (14:13)
[2021-05-13 18:01] LABS: Glucose Point of Care 235 mg/dL (70-110)
--- NOTE | 2021-05-13 18:27 | PC.NURSE ---
Late note: upon shift change, patient was hypotensive, systolic in the 70's and sometimes not detectable. O2 saturation was in the mid 70's. Patient was tachypnic, often in the mid 30's. Nurse alerted Dr lowe, recieved an order for 500mL bolus of NS and started nimbex for vent compliance. After starting NS bolus and nimbex, patient's vitals stabilized. NUrse updated family. on patient condition.
--- NOTE | 2021-05-13 19:02 | PC.NURSE ---
Shift Note Frequent safety and comfort rounds continue. Orders and/or nursing care completed as indicated. Patient monitored for response to intervention and treatment. Shift summary: Besides morning events detailed in previous, today was an uneventful shift. We were able to turn vasopressin off and reduce levophed from 18 to 9. Vent is at 100% FIO2 and patient is saturating in the low 90%'s on that. However, it is position dependent. Nurse has been unable to make significant position changes today as the patient's saturation will drop to the low 80's/high 70's when he is not right side lying. Both left side chest tubes have air leaks. Physician is aware and no changes are being made at this time as xray is showing improvement despite leaks. Urine output was only 50mL today and physician was notified, no new orders received. TO4/BIS: 05/13/2021 1000: 41/4 1200: 42/3 1400: 39/2 1600: 37/0 1800: 42/4
--- NOTE | 2021-05-13 19:07 | PM.PN ---
Subjective Subjective: Interval history: Patient was seen and examined this morning: Continue to be on mechanical ventilation, Fio2: 100 % PEEP of 8 , last night due to worsening subcutaneous emphysema on the left, as well as significant desaturation with slightest positional change. Left Thora vent had to be placed. Patient has been paralyzed this morning, as he was breathing over the vent and was extremely tachypneic, with ventilatory dyssynchrony. Medications: Reviewed: Yes Vitals/I&O/Wt Last Vital Signs Temp 96.6 F L 05/13/21 18:00 Pulse 90 05/13/21 18:15 Resp 18 05/13/21 18:00 BP 90/55 05/13/21 18:15 Pulse Ox 90 05/13/21 18:15 05/13/21 05/13/21 05/13/21 06:59 14:59 22:59 Intake Total 641.583 / 2204.040 839.846 / 839.846 780.819 / 1620.665 Output Total 850 / 2550 100 / 100 Balance -208.417 / -345.960 839.846 / 839.846 680.819 / 1520.665 Physical Exam Const: COMMON NORMALS: patient oriented x3 HENMT: COMMON NORMALS: normocephalic and atraumatic HEAD & SCALP: normocephalic and atraumatic Resp: OTHER: Coarse Breath sounds B/L. Cardio: COMMON NORMALS: regular rate, regular rhythm, S1 normal heart sound present, S2 normal heart sound present, No gallops present (Cardio), No murmurs present (Cardio), No rub (Cardio) and Peripheral pulses 2+ throughout RATE: regular rate RHYTHM: regular rhythm HEART SOUNDS: S1 normal heart sound present and S2 normal heart sound present PERIPHERAL PULSES: Peripheral pulses 2+ throughout GI: COMMON NORMALS: Normal to inspection, nondistended, normoactive bowel sounds present, Soft to palpation, non-tender, No hepatosplenomegaly present and no masses AUSCULTATION: Yes normoactive bowel sounds PALPATION: Yes Soft to palpation and Yes No hepatosplenomegaly present RECTAL EXAM: Yes deferred Extremity: COMMON NORMALS: no clubbing, cyanosis or edema and no pedal edema Neuro: COMMON NORMALS: patient oriented x3 Urinary Catheter Management^: Dewey: Cath Placed During This Visit: yes, but has since been removed by the nurse Reason for Continuing Indwelling Catheter: Accurate Measurement of Urinary Output in Critically Ill Patients Urinary Catheter Date of Insertion: 05/05/21 Urinary Catheter Time of Insertion: 12:47 Date Urinary Catheter Removed: 05/05/21 Time Urinary Catheter Discontinued: 12:45 Data : 05/13/21 11:45 05/13/21 11:45 Micro: Microbiology 05/11/21 16:45 Gram Stain - Final Sputum - Endotracheal Tube Aspirate Sputum Culture - Final Stenotrophomonas maltophilia A&P Assessment and plan (1) Pneumonia due to 2019-nCoV: Acute hypoxic respiratory failure secondary to COVID-19 pneumonia, with acute respiratory distress syndrome -CT angiogram negative for pulmonary emboli Plan -Continue Dexamethasone 6 mg I.V Daily for 10 days - Completed 5 days course of remdesivir -Completed 3 sessions of proning. -Initially on Mechanical ventilation s/p self extubation followed by reintubation on 05/11. -On Versed, propofol and fentanyl for sedation. -On Nimbex for paralysis -Maintain MAP greater than 65, Levophed as needed -Continue broad-spectrum antibiotic therapy vancomycin, imipenam , levofloxacin. doxycycline was stopped earlier. -Sputum culture showing penicillin resistant staph aureus, MRSA nares negative, - repeat sputum culture : Stenotrophomonas maltophilia: Sensitive to levofloxacin -Blood culture: Negative -Procalcitonin is trending down: 13--> 5.33 -baricitinib discontinued given sputum culture results -Low-dose sliding scale -Protonix for GI prophylaxis -Therapeutic Lovenox # Septic shock secondary to pneumonia: Patient is currently on Levophed as well as vasopressin Continue broad-spectrum antibiotic. # Bilateral subcutaneous emphysema: Status post bilateral chest tube placement.As well as lt Thora vent. #Pneumomediastinum: #Trace left pneumothorax bilateral DVTs in both popliteal veins extending into the calf veins, on therapeutic Lovenox Sepsis, resolved, secondary to COVID-19 pneumonia as above ZACHARIAH creatinine up to 1.3, secondary to sepsis, diuretic therapy, COVID-19 pneumonia, urine output 3050, NSTEMI, likely type II NSTEMI, supply demand ischemia from COVID-19 pneumonia as above, respiratory failure, continue telemetry monitoring, order cardiac echocardiogram Hypernatremia : On D5W @75 CC/Hr.Monitor BMP Transaminitis :Likely hpoxia mediated. 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
--- NOTE | 2021-05-13 19:12 | PC.NURSE ---
Per Dr lowe, nurse turned tube feeding off.
[2021-05-13 19:43] LABS: Anion Gap 20.7 (5-19); Blood Urea Nitrogen 53 mg/dL (8-23); Calcium 7.6 mg/dL (8.5-10.5); Carbon Dioxide 21 mmol/L (22-29); Chloride 101 mmol/L (98-107); Glomerular Filtration Rate 41.3 mL/min (90-130); Glucose 244 mg/dL (65-115); Osmolality Calculated 306 mOsm/kg (285-295); Potassium 5.7 mmol/L (3.5-5.1); Sodium 137 mmol/L (136-145)
[2021-05-13] MEDS: enoxaparin 80 mg/0.8 mL Syringe SUBCUT (20:20)
[2021-05-13] MEDS: levofloxacin-dextrose 5 % 750 MG/150 ML PREMIX 100 MG IV (20:21)
[2021-05-13] MEDS: sennosides-docusate Tablet 2 TAB PO (20:21)
[2021-05-13 21:03] LABS: Glucose Point of Care 217 mg/dL (70-110)
[2021-05-13] MEDS: sodium bicarbonate 650 mg Tablet 1300 MG PO (21:10)
[2021-05-13 22:19] LABS: ABG PCO2 48.8 mmHg (35-45); Alveolar-Arterial Oxygen Gradi 75.9 mmHg (5-10); Arterial Blood Gas Hematocrit 36.8 % (42-52); Base Excess ABG -6.2 mmol/L (-2.0-2.0); Blood Gas Allen Test Pos; Blood Gas Sample Site Radial, right; Blood Gas Sample Type Arterial; Blood Gas Tidal Volume 0.45; Carboxyhemoglobin 0.7 %THgb (0.4-20.1); HCO3 ABG 21.2 mmol/L (22-26); HGB O2 Sat 91.6 % (95-100); Ionized Calcium Level - ABG 1.1 mmol/L (1.1-1.4); Methemoglobin 0.9 % (0.4-1.5); Oxygen Device VENT; Oxygen Saturation ABG 93.2; PO2 ABG 69.3 mmHg (80.0-100.0); Potassium Level - ABG 5.2 mmol/L (3.5-5.0)
[2021-05-13 23:45] LABS: ABG PH Result 7.25 (7.35-7.45)
[2021-05-14] VITALS (76 sets, daily range): BP systolic 72–121; BP diastolic 45–77; PULSE 59–142; RESP 18–30; TEMP 35.8–36.8; O2SAT 47–96
[2021-05-14] MEDS: ipratropium-albuterol 3 mL Neb INHALATION ×3 (03:13→14:11)
[2021-05-14] MEDS: cisatracurium 100 MG in sodium chloride 0.9% 50 ML 5.14 MG IV (03:25)
[2021-05-14 03:58] LABS: Basophils # 0.1 10^3/uL (0.0-0.1); Basophils % 0.5 %; Hematocrit 37.2 % (42.0-52.0); Hemoglobin 11.6 g/dL (11.7-16.6); Lymphocytes # 0.5 10^3/uL (0.8-4.8); Mean Corpuscular HGB Conc 31.2 g/dL (30.0-36.0); Mean Corpuscular Hemoglobin 31.3 pg (28.0-34.0); Mean Corpuscular Volume 100.3 fl (80-94); Mean Platelet Volume 12.2 fL (7.4-10.4); Monocytes # 0.3 10^3/uL (0.2-0.9); Monocytes % 1.3 %; Neutrophils # 24.42 10^3/uL (1.8-7.7); Neutrophils % 95.4 %; Nucleated Red Blood Cells % 0 %; Platelet Count 107 10^3/cmm (130-400); Red Blood Count 3.71 10^6/uL (4.1-5.3); Red Cell Distribution Width 15.5 % (12.1-15.1); White Blood Count 25.6 10^3/uL (4.0-10.0)
[2021-05-14 04:15] LABS: INR 1.42 (0.8-1.2)
[2021-05-14 04:16] LABS: Fibrinogen 525 mg/dL (174-498); Partial Thromboplastin Time 38.8 SECONDS (23.9-36.7)
[2021-05-14 04:18] LABS: Albumin Level 1.7 g/dL (3.5-5.2); Alkaline Phosphatase 156 IU/L (40-130); Blood Urea Nitrogen 61 mg/dL (8-23); C Reactive Protein 224.5 mg/L (0.0-4.9); Calcium 7.3 mg/dL (8.5-10.5); Carbon Dioxide 19 mmol/L (22-29); Chloride 105 mmol/L (98-107); Globulin 3.4 g/dL (1.3-4.6); Glomerular Filtration Rate 36.3 mL/min (90-130); Glucose 231 mg/dL (65-115); Osmolality Calculated 311 mOsm/kg (285-295); Sodium 138 mmol/L (136-145); Total Bilirubin 4.2 mg/dL (0.15-1.2); Total Protein 5.1 g/dL (6.6-8.7)
[2021-05-14 04:23] LABS: D Dimer 2.92 ug/mIFEU (0-0.59)
[2021-05-14 04:24] LABS: ABG PCO2 40.4 mmHg (35-45); ABG PH Result 7.32 (7.35-7.45); Alveolar-Arterial Oxygen Gradi 62.9 mmHg (5-10); Arterial Blood Gas Hematocrit 37.8 % (42-52); Base Excess ABG -5.2 mmol/L (-2.0-2.0); Blood Gas Allen Test Pos; Blood Gas Sample Site Radial, right; Blood Gas Sample Type Arterial; Blood Gas Tidal Volume 0.45; Carboxyhemoglobin 0.8 %THgb (0.4-20.1); HCO3 ABG 20.6 mmol/L (22-26); HGB O2 Sat 93.9 % (95-100); Ionized Calcium Level - ABG 1.1 mmol/L (1.1-1.4); Methemoglobin 0.9 % (0.4-1.5); Oxygen Device VENT; Oxygen Saturation ABG 95.5; PO2 ABG 70.6 mmHg (80.0-100.0); Potassium Level - ABG 4.9 mmol/L (3.5-5.0); Total Hemoglobin 12.3 g/dL (14-18)
[2021-05-14 04:25] LABS: Procalcitonin 81.31 ng/mL (0-0.5)
[2021-05-14 04:26] LABS: Alanine Aminotransferase 50 U/L (0-41); Anion Gap 19.7 (5-19); Aspartate Amino Transferase 61 U/L (0-40); Potassium 5.7 mmol/L (3.5-5.1)
[2021-05-14 04:38] LABS: Slide Review Slide Review Perform
--- NOTE | 2021-05-14 05:39 | XR_ITS ---
WS: [id number] XR chest 1V portable [id number] REASON FOR EXAM: PNA FINDINGS: Right jugular central venous line, endotracheal tube, small bore left chest tube and large bore left chest tube, and large bore right chest tube, all remain in position as on the previous examination of 05/13/2021. Endotracheal tube tip is at the level of the ida. The subcutaneous emphysema in the chest wall and base of the neck resolving. The right lung appears fully inflated. Persistent left pneumothorax, somewhat larger volume than on the previous examination of 05/13/2021. Pneumomediastinum persists. Bilateral infiltrates persist. XR/XR chest 1V portable [id number] IMPRESSION: Resolving barotrauma. Left pneumothorax as above.
[2021-05-14] MEDS: pantoprazole 40 mg SDV IVP (06:29)
[2021-05-14] MEDS: dexamethasone 4 mg/mL INJ 6 MG IVP (06:29)
[2021-05-14 08:03] LABS: Glucose Point of Care 198 mg/dL (70-110)
[2021-05-14] MEDS: zinc gluconate 50 mg Tablet PO (08:08)
[2021-05-14] MEDS: cholecalciferol (vitamin D3) 1,000 unit Tablet 1000 UNIT PO (08:08)
[2021-05-14] MEDS: enoxaparin 80 mg/0.8 mL Syringe SUBCUT (08:09)
[2021-05-14] MEDS: sodium bicarbonate 650 mg Tablet 1300 MG PO (08:09)
[2021-05-14] MEDS: ascorbic acid 500 mg Tablet PO (08:09)
[2021-05-14] MEDS: chlorhexidine gluconate 0.12% Btl 473 mL 15 ML MUCOUS MEM ×2 (08:24→18:01)
[2021-05-14] MEDS: budesonide 0.5 mg/2 mL Neb INHALATION (08:38)
--- NOTE | 2021-05-14 10:02 | PC.CHAP ---
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 patient having great difficulty breathing.. 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 [x] Prayer [] Active listening [] Non-anxious presence [] Spiritual/emotional support [] Crisis/trauma care [] Spiritual counseling [] Bereavement support [] Provided bereavement packet [] Provided Bible/devotional materials [] Provided toy/stuffed animal, coloring book to patient or family member [] Provided Communion [] Anointing/[place] [] Salvation [x] Completed spiritual assessment [] Other: Impact on Illness or Injury [] Angry [] Fearful [] Anxious [] Often cries [] Exhaustion [] Unable to work [] Unable to attend jewish [] Unable to walk/stand [] Unable to read [] Unable to drive [] Unable to eat/drink [] Unable to sleep [] Unable to be with family [] Patient intubated [] Other: Summary Time spent with patient
[2021-05-14 11:28] LABS: Glucose Point of Care 204 mg/dL (70-110)
--- NOTE | 2021-05-14 11:33 | PC.NURSE ---
Report given to YULIANA Nye, taking over patient care.
--- NOTE | 2021-05-14 11:43 | PC.NURSE ---
Nurse recieved care from Domenico BRIDGES. Planned to start CRRT later today and needs to be 1:1 with nurse that can do CRRT. Upon assessment, vitals are within normal limits. CUrrently awaiting HD catheter placement to start CRRT. Patient's oxygen saturating is now tolerating more significant position changes compared to yesterday. Was previously unable to tolerate anything other than right side lying. Pt is now tolerating left and right side lying with saturations of 90% at 80%FIO2
--- NOTE | 2021-05-14 12:14 | PC.NUTR ---
Nutrition recommendations: TF held at this time. Has received 777 ml total TF from 05/05 to present, for a total of 1166 kcal X 10 days, or approx 117 kcal/day. Recommend resume TF when medically appropriate and increase Pulmocare rate as tolerated to 50 ml/hr, continuing with 100 ml H2O flush q 4 hrs, to provide 1800 kcal, 76 g protein, and 1542 ml H2O. Additional 129 kcal/day from propofol at current rate. Continue to recommend obtaining current weight, as most recent is from 05/02/21. Also recommend to check Phos when possible. If unable to tolerate enteral nutrition and if medically appropriate, recommend TPN. See full RD assessment for further details.
--- NOTE | 2021-05-14 12:26 | PC.SOCIAL ---
IMM update IMM not updated as patient is still intubated and not expected to DC in the next 24-48 hours.
--- NOTE | 2021-05-14 13:44 | PC.NURSE ---
NUrse repositioned patient form left side lying to right side lying. Patient went into SVT with a rate of 140, blood pressure dropped to 54 systolic. Patient was previously sinus rhythm with a rate in the 80's and a pressure within normal limits. Nurse positioned patient back to left side lying. After becoming left side lying again, the pressure returned to normal and heart rate came down. Rate is now staying around [address] curtis at bedside.
--- NOTE | 2021-05-14 13:52 | ECG_ITS ---
[facility] Test Date: 2021-05-14 Pat Name: Alpesh Guajardo Department: Room: ICU06 Gender: Male Answerer: : 1960 Requested By: [employer] Order Number: [id number] Reading MD: YANCI PEREYRA Measurements Intervals [place] Rate: 125 P: [place]: 362 QRS: 30 QRSD: 92 T: 16 QT: 322 QTc: 465 Interpretive Statements ATRIAL FIB LOW QRS VOLTAGE IN PRECORDIAL LEADS [QRS DEFLECTION < 1.0 mV IN CHEST LEADS] NONSPECIFIC ST & T-WAVE ABNORMALITY ABNORMAL RHYTHM ECG Compared to ECG 05/13/2021 05:51:59 Low QRS voltage now present T-wave abnormality now present Atrial flutter no longer present Ventricular premature complex(es) no longer present Electronically Signed On 05-14-2021 20:19:33 CDT by YANCI PEREYRA [id number]
--- NOTE | 2021-05-14 13:58 | P.CONIM_ITS ---
Providers/Reason For Consult Consulting Physician/Specialty*: Nephro Reason for Consult*: Eval for renal failure Attending Physician: Carlos A Rodarte MD History of Present Illness History of Present Illness Thank you for consultation, today had the pleasure reviewing this unfortunate 61-year-old gentleman for evaluation of renal failure. He originally presented on 05/03 with shortness of breath in the setting of Covid pneumonitis. He was subsequently intubated in the emergency room for severe hypoxia and subsequently developed shock requiring initiation of vasopressor agents. He was diagnosed with bilateral DVT without any evidence of pulmonary embolism. On 05/11 bilateral chest tubes were placed because of evidence of pneumomediastinum and subcutaneous and noted supraclavicular bilaterally. It was treated with combination antibiotics including Zosyn and vancomycin, also imipenem. He completed remdesivir and is receiving dexamethasone. Today he remains on Levophed at 4 mics per minute. His FiO2 is 85, PEEP of 10. He is oliguric producing only 20-30 mL of urine per shift. His creatinine is down to 1.9 his potassium was 5.7. He has mild global edema. His lungs very diminished. No known history of acute or chronic kidney disease or any evidence that he had previously received hemodialysis. His renal function was normal until 05/11. When he came to the hospital his serum creatinine was slightly elevated at 1.6. On 05/10 he did have an ultrasound scan of the right upper quadrant which demonstrated a normal right kidney. No other imaging of his left kidney performed. His last exposure to angiographic dye was on 05/02. Review of Systems General: Reports: ROS unobtainable due to endotracheal tube and ROS unobtainable due to medical condition Meds/Allergies Home Medications and Allergies Home Medications Medication Instructions Recorded Confirmed Last Taken Type Unable to Assess 05/03/21 05/03/21 Unknown History Allergies Allergy/AdvReac Type Severity Reaction Status Date / Time red meat Allergy ALGY-Anaphy Uncoded 05/02/21 20:10 laxis Current Medications Current Medications Generic Name Dose Route Start Last Admin Trade Name Freq PRN Reason Stop Dose Admin Albuterol/Ipratropium 3 ml 05/03/21 09:00 05/14/21 08:38 Ipratropium-Albuterol 3 Ml Neb INHALATION 3 ml Q6H.RESPIRATORY AYLIN Administration Ascorbic Acid 500 mg 05/03/21 18:00 05/14/21 08:09 Ascorbic Acid 500 Mg Tablet PO 500 mg BID AYLIN Administration Baricitinib 1 mg 05/04/21 09:00 05/04/21 12:20 Baricitinib 2 Mg Tablet PO 1 mg Q24H AYLIN Administration Budesonide 0.5 mg 05/03/21 08:00 05/14/21 08:38 Budesonide 0.5 Mg/2 Ml Neb INHALATION 0.5 mg BID.RESPIRATORY AYLIN Administration Chlorhexidine Gluconate 15 ml 05/03/21 18:00 05/14/21 08:24 Chlorhexidine Gluconate 0.12% Btl 473 Ml MUCOUS MEM 15 ml BID AYLIN Administration Dexamethasone 6 mg 05/03/21 07:00 05/14/21 06:29 Dexamethasone 4 Mg/Ml Inj IVP 6 mg Q24H AYLIN Administration Norepinephrine Bitartrate 4 mg 254 mls @ 0 mls/hr 05/03/21 03:30 05/14/21 12:47 / Dextrose IV 4 mcg/min .Q0M AYLIN 15.24 mls/hr Titration Protocol Per Protocol Propofol 1,000 mg in 100 mls @ 0 mls/hr 05/03/21 17:15 05/13/21 22:30 Diprivan IV 10 mcg/kg/min .Q0M AYLIN 4.9 mls/hr Administration Protocol Per Protocol Vancomycin/PEG/NADA/Lysine/Water 1,250 mg in 250 mls @ 200 mls/hr 05/09/21 08:30 05/13/21 21:45 Vancocin IV Infused Q18H AYLIN Infusion Fentanyl 1,000 mcg/ Sodium 100 mls @ 0 mls/hr 05/11/21 04:45 05/14/21 12:48 Chloride IV 75 mcg/hr .Q0M AYLIN 7.5 mls/hr Titration Protocol Per Protocol Midazolam HCl 100 mg/ Sodium 100 mls @ 0 mls/hr 05/11/21 04:45 05/14/21 12:51 Chloride IV 1 mg/hr .Q0M AYLIN 1 mls/hr Titration Protocol Per Protocol Vasopressin 100 unit/ Sodium 100 mls @ 0 mls/hr 05/13/21 06:45 05/13/21 18:26 Chloride IV 0 unit/min .Q0M AYLIN 0 mls/hr Titration Protocol Per Protocol Cisatracurium Besylate 100 mg/ 100 mls @ 0 mls/hr 05/13/21 08:00 05/14/21 09:46 Sodium Chloride IV 0.8 mcg/kg/min .Q0M AYLIN 3.92 mls/hr Titration Protocol Per Protocol Norepinephrine Bitartrate 8 mg 508 mls @ 0 mls/hr 05/13/21 11:30 05/14/21 06:30 / Dextrose IV Infused .Q0M AYLIN Titration Protocol Per Protocol Imipenem/Cilastatin Sodium 250 100 mls @ 200 mls/hr 05/14/21 14:00 05/14/21 13:22 mg/ Sodium Chloride IV 200 mls/hr Q6H AYLIN Administration Protocol Insulin Aspart 0 unit 05/03/21 18:00 05/14/21 11:33 Insulin Aspart 100 Unit/1 Ml SUBCUT 4 unit TIDWM AYLIN Administration Protocol Lorazepam 1 mg 05/08/21 08:52 05/09/21 17:42 Lorazepam 1 Mg Tablet PO 1 mg Q2H PRN Administration ANXIETY Morphine Sulfate 2 mg 05/09/21 05:04 05/13/21 05:20 Morphine 4 Mg/Ml Sdv 1 Ml IVP 2 mg Q4H PRN Administration SEVERE PAIN Pantoprazole Sodium 40 mg 05/03/21 17:30 05/14/21 06:29 Pantoprazole 40 Mg Sdv IVP 40 mg Q12H AYLIN Administration Senna/Docusate Sodium 2 tab 05/07/21 21:00 05/13/21 20:21 Sennosides-Docusate Tablet PO 2 tab BEDTIME AYLIN Administration Sodium Bicarbonate 1,300 mg 05/13/21 21:00 05/14/21 08:09 Sodium Bicarbonate 650 Mg Tablet PO 1,300 mg TID AYLIN Administration Vitamin D 1,000 unit 05/04/21 09:00 05/14/21 08:08 Cholecalciferol (Vitamin D3) 1,000 Unit Tablet PO 1,000 unit DAILY AYLIN Administration Zinc Gluconate 50 mg 05/04/21 09:00 05/14/21 08:08 Zinc Gluconate 50 Mg Tablet PO 50 mg DAILY AYLIN Administration Vitals/I&O/Wt Last Vital Signs Temp 96.4 F L 05/14/21 12:15 Pulse 81 05/14/21 12:15 Resp 20 H 05/14/21 13:42 BP 121/77 05/14/21 12:15 Pulse Ox 92 05/14/21 13:42 05/13/21 05/14/21 05/14/21 22:59 06:59 14:59 Intake Total 1488.256 / 2328.102 466.310 / 2794.412 439.208 / 439.208 Output Total 100 / 100 85 / 185 250 / 250 Balance 1388.256 / 2228.102 381.310 / 2609.412 189.208 / 189.208 Physical Exam Narrative: EXAM NARRATIVE: Constitutional: Sedated and vented HEENT: Wet mucosa, no jvp, non icteric Lungs: Bilaterally wheeze, rales in all lung zones CVS: S1 S2, no murmurs Abdo: Soft, BS ok Ext 4: Minimal edema, peripheral perfusion with no cyanosis Neurological: Grossly non-focal Urinary Catheter Management^: Dewey: Cath Placed During This Visit: yes, but has since been removed by the nurse Reason for Continuing Indwelling Catheter: Accurate Measurement of Urinary Output in Critically Ill Patients Urinary Catheter Date of Insertion: 05/05/21 Urinary Catheter Time of Insertion: 12:47 Date Urinary Catheter Removed: 05/05/21 Time Urinary Catheter Discontinued: 12:45 Data Micro: Micro: Microbiology 05/14/21 03:45 Blood Culture - Pr eliminary Blood [facility] 05/14/21 03:45 Blood Culture - Pr eliminary Blood SPECIMEN [facility] 05/11/21 16:45 Gram Stain - Final Sputum - Endotrac heal Tube Aspirate Sputum Culture - F inal Stenotrophomona s maltophilia A&P Additional A&P Information 1. Renal failure He is now has renal failure in the setting of multisystem organ failure in the setting of Covid pneumonitis. This is a multifactorial complex etiology including renal tissue hypoxia, renal hypoperfusion, inflammation mediated tubular injury and occasionally primary glomerulopathy with viral infiltration. He is oligoanuric with a potassium that is now increasing into a dangerous range. With this in mind, as we are continuing aggressive therapy I agree with initiating CRRT. He is currently on systemic anticoagulation as we do not need to provide additional regional anticoagulation. 2K, blood flow 200, dialysate flow 1000/1000/1000 mL/h Net ultrafiltration; we will keep net even initially Work-up to include renal sonogram, urinalysis, urine sodium, creatinine. Serum CPK. Strict I's and O's Avoid usual nephrotoxic agents Dose medication for GFR less than 15 on CRRT 2. Covid pneumonitis, vent dependent respiratory failure Management per the ICU team Chest tubes currently in, to suction Currently on high ventilator settings Prone positioning Status post remdesivir, dexamethasone, baricitinib 3. Chemistry Becoming increasingly acidotic and hyperkalemic. This will correct with effective CRRT Continue to monitor electrolytes during CRRT per protocol The situation is obviously very dire with a very poor prognosis at this time. Ongoing discussions are appreciated with family members regarding prognosis. 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
--- NOTE | 2021-05-14 14:22 | PC.NURSE ---
Heart rate has started to go up again. staying around 140's/ Nurse obtained an EKG per Dr curtis orders. Nurse alerted Dr Rodarte. Waiting on further orders.
[2021-05-14 14:39] LABS: Vancomycin Trough 35.2 ug/mL (10-15)
[2021-05-14 14:55] LABS: Albumin Level 1.8 g/dL (3.5-5.2); Anion Gap 21.1 (5-19); Blood Urea Nitrogen 73 mg/dL (8-23); Calcium 7.3 mg/dL (8.5-10.5); Carbon Dioxide 17 mmol/L (22-29); Chloride 102 mmol/L (98-107); Glomerular Filtration Rate 26.5 mL/min (90-130); Glucose 194 mg/dL (65-115); Magnesium 2.2 mg/dL (1.7-2.3); Phosphorus 5.8 mg/dL (2.5-4.5); Potassium 5.1 mmol/L (3.5-5.1); Sodium 135 mmol/L (136-145)
--- NOTE | 2021-05-14 15:14 | PC.NURSE ---
Family has decided on comfort care measures for the patient. Nurse has stopped nimbex and is waiting on paralytic to longer be in effect before starting comfort care orders.
[2021-05-14] MEDS: LORazepam 2 mg/mL INJ 1 mL IVP ×3 (15:23→17:49)
[2021-05-14] MEDS: morphine 4 mg/mL SDV 1 mL IVP ×5 (15:25→17:50)
--- NOTE | 2021-05-14 15:49 | PC.NURSE ---
Patient's girldfriend called while nurse was with a patient. Nurse attempted to call the patient's girlfriend back, xu holley. No answer.
--- NOTE | 2021-05-14 16:36 | PC.NURSE ---
Nurse attempted to call Rhianna Gray again at [phone]. went to voicemail after 3 rings. previously rang indefinitely.
--- NOTE | 2021-05-14 16:49 | P.PN_ITS ---
Subjective Subjective: Interval history: The patient was seen and examined. He is intubated, sedated and paralyzed. The patient has bilateral chest tube in the thoracic vent on the left side. No air leak was noted on the right-sided chest tube. Continuous air leak was noted through the left-sided chest tube. During evaluation, the patient was noted to have intermittent episodes of tachycardia with heart rate in the 150s this was subsequently identified to be atrial fibrillation. His heart rate came down with amiodarone bolus and the patient was started on IV amiodarone drip. His pressor requirement had come down in the past 24 hours. Currently the patient was not on any pressors with stable blood pressure. Urine output was somewhat better than yesterday. Bedside ultrasound revealed dilated IVC. Due to oliguria, acidosis and mild degree of hyperkalemia the plan was to start the patient on CRRT today. Medications: Reviewed: Yes Vitals/I&O/Wt Last Vital Signs Temp 96.4 F L 05/14/21 12:15 Pulse 100 05/14/21 14:24 Resp 30 H 05/14/21 16:38 BP 121/77 05/14/21 12:15 Pulse Ox 94 05/14/21 14:11 05/14/21 05/14/21 05/14/21 06:59 14:59 22:59 Intake Total 466.310 / 2794.412 439.208 / 439.208 103 / 542.208 Output Total 85 / 185 250 / 250 Balance 381.310 / 2609.412 189.208 / 189.208 103 / 292.208 Physical Exam Narrative: EXAM NARRATIVE: General: Patient is intubated, sedated and paralyzed Respiratory: Inspection: Bilateral chest tubes and additional left anterior thoracic vent Auscultation: Bilateral coarse breath sound, no wheezing or rhonchi Cardiovascular: Tachycardia, irregularly regular rhythm, variable first heart sound, no murmur, no peripheral edema Abdomen: Soft, nondistended, very sluggish bowel sound Musculoskeletal: No obvious joint deformity, normal gait. Neuro: Unable to assess Urinary Catheter Management^: Dewey: Cath Placed During This Visit: yes, but has since been removed by the nurse Reason for Continuing Indwelling Catheter: Accurate Measurement of Urinary Output in Critically Ill Patients Urinary Catheter Date of Insertion: 05/05/21 Urinary Catheter Time of Insertion: 12:47 Date Urinary Catheter Removed: 05/05/21 Time Urinary Catheter Discontinued: 12:45 Data : 05/14/21 03:45 05/14/21 13:35 Micro: Microbiology 05/14/21 03:45 Blood Culture - Preliminary Blood SPECIMEN COLLECTED 05/14/21 03:45 Blood Culture - Preliminary Blood SPECIMEN COLLECTED Attestation for Other Data: I personally reviewed and interpreted the following: Other data: I have reviewed the patient's laboratory, the anion gap metabolic acidosis, worsening kidney function. Chest x-ray this morning revealed persistent pneumothorax on the left side. A&P Assessment and plan (1) Acute respiratory distress syndrome (ARDS) due to 2019 novel coronavirus: This is a 61-year-old gentleman with severe COVID-19. The patient has ARDS. He is currently intubated, sedated and paralyzed. Oxygen saturation in the low to mid 90s on 80% oxygen. He was covered with broad-spectrum antibiotics. Status: Acute (2) Pneumomediastinum: Status: Acute (3) Subcutaneous emphysema: Status: Acute (4) Pneumothorax: The patient has bilateral chest tubes from my chart review it appears that the patient had developed significant subcutaneous emphysema after the second intubation. There is a very small left apical pneumothorax. Bilateral chest tube was placed after that. There is no leak in the right chest tube, there is continuous leak in the left-sided chest tube. For now we will continue the suction. Status: Acute (5) Metabolic acidosis: Likely secondary to acute kidney injury Status: Acute (6) ZACHARIAH (acute kidney injury): The patient has metabolic acidosis, acute kidney injury and borderline hyperkalemia. The family is in the process of deciding what is the next step including dialysis initiation. Status: Acute Additional A&P Information After I had evaluated the patient, the family had made the patient comfort care. 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
--- NOTE | 2021-05-14 17:44 | PM.PN ---
Subjective Subjective: Interval history: This morning patient was examined, he is urine output has decreased, he is becoming anuric, creatinine up to 1.9, has had episodes of A. fib, remains on pressors, remains intubated, sedated, paralyzed, right chest tube no air leak, left chest tube air leak, both to suction, has a left thoracic vent, very small left apical pneumothorax, has metabolic acidosis, ZACHARIAH, acute respiratory distress syndrome, sputum cultures show Stenotrophomonas maltophilia, currently on 85% FiO2 I discussed the case with nephrology, plans were to go ahead with dialysis catheter placement in CRRT, he also had pulmonary critical care team, to help assist with chest tubes and respiratory status, currently prognosis is poor, status is critical -I discussed the case in detail with the patient's son, Viraj, who was autism, and he in his twenties, who lives with his father, patient's is recently , Viraj would like for me to reach out to patient's brother Patricio Guajardo who knew Alpesh very well, and would like to assist with goals of care -I also spoke to patient's girlfriend Rhianna Tinsley, who also agreed that Patricio Guajardo is who would know Jabari the best, -In fact patient has two brothers, two sisters, all in [place] -I reached out to patient's brother Patricio rosales, and went over his case in detail, he has been kept updated by nursing staff and patient's girlfriend -I advised that currently patient status is critical, given his acidosis, his hyperkalemia, his declining urine function, he will likely require CRRT and dialysis catheter placement -Also he has bilateral chest tubes, one thoracic vent, remains in acute respiratory failure -Remains in septic shock, broad-spectrum antibiotic therapy -I discussed goals of care, I discussed all options available, including continue medical interventions versus pursuing comfort care, discussed the risk and benefits of all options, he wishes any, all questions answered -Patricio advised me that he wanted to talk to his brother, two sisters in [place] before reaching a decision -Patricio called back, about an hour later, he told me they discussed with all his family, and they would like to proceed with comfort care, I discussed the risks and benefits, they voiced her signing, all questions answered, agreed to proceed, Patricio also says that he spoke to Lina who agrees with comfort care, and with Rhianna -I also reached out to viraj, who agreed to proceed with comfort care, discussed risk benefits comp wishes today, all questions answered, agreed to proceed -I also reached out to Rhianna, advised her on family's decision, she is agreeable, she voiced understanding, all questions answered -Proceed with comfort care afternoon of 05/14/2021 Vitals/I&O/Wt Last Vital Signs Temp 96.4 F L 05/14/21 12:15 Pulse 124 H 05/14/21 17:15 Resp 30 H 05/14/21 17:23 BP 72/45 05/14/21 17:15 Pulse Ox 76 L 05/14/21 17:23 05/14/21 05/14/21 05/14/21 06:59 14:59 22:59 Intake Total 466.310 / 2794.412 439.208 / 439.208 442.745 / 881.953 Output Total 85 / 185 250 / 250 Balance 381.310 / 2609.412 189.208 / 189.208 442.745 / 631.953 Physical Exam Const: COMMON NORMALS: no acute distress GENERAL APPEARANCE: ill appearing and frail appearing ORIENTATION/CONSCIOUSNESS: not awake, not oriented to person, not oriented to place and not oriented to time Resp: EFFORT & INSPECTION: Yes tachypneic and Yes retractions intercostal AUSCULTATION: wheezes Cardio: COMMON NORMALS: S1 normal heart sound present and S2 normal heart sound present RATE: tachycardic RHYTHM: abnormal rhythm HEART SOUNDS: S1 normal heart sound present and S2 normal heart sound present GI: COMMON NORMALS: Normal to inspection, nondistended, normoactive bowel sounds present and Soft to palpation PALPATION: Yes Soft to palpation Extremity: COMMON NORMALS: no pedal edema Neuro: SENSORIUM/ORIENTATION: No oriented to person, No oriented to place and No oriented to time Skin: NARRATIVE SKIN EXAM: Bilateral chest tubes in place, left thoracic vent in place Urinary Catheter Management^: Dewey: Cath Placed During This Visit: yes, but has since been removed by the nurse Reason for Continuing Indwelling Catheter: Accurate Measurement of Urinary Output in Critically Ill Patients Urinary Catheter Date of Insertion: 05/05/21 Urinary Catheter Time of Insertion: 12:47 Date Urinary Catheter Removed: 05/05/21 Time Urinary Catheter Discontinued: 12:45 Data : 05/14/21 03:45 05/14/21 13:35 Micro: Microbiology 05/14/21 03:45 Blood Culture - Preliminary Blood SPECIMEN COLLECTED 05/14/21 03:45 Blood Culture - Preliminary Blood SPECIMEN COLLECTED A&P Assessment and plan (1) Pneumonia due to 2019-nCoV: Proceeding with comfort care acute hypoxic respiratory failure secondary to COVID-19 pneumonia, with acute respiratory distress syndrome -CT angiogram negative for pulmonary emboli Plan -Continue Dexamethasone 6 mg I.V Daily for 10 days - Completed 5 days course of remdesivir -Completed 3 sessions of proning. -Initially on Mechanical ventilation s/p self extubation followed by reintubation on 05/11. -On Versed, propofol and fentanyl for sedation. -On Nimbex for paralysis -Maintain MAP greater than 65, Levophed as needed -Continue broad-spectrum antibiotic therapy vancomycin, imipenam , levofloxacin. doxycycline was stopped earlier. -Sputum culture showing penicillin resistant staph aureus, MRSA nares negative, - repeat sputum culture : Stenotrophomonas maltophilia: Sensitive to levofloxacin -Blood culture: Negative -Procalcitonin is trending down: 13--> 5.33 -baricitinib discontinued given sputum culture results -Low-dose sliding scale -Protonix for GI prophylaxis -Therapeutic Lovenox # Septic shock secondary to pneumonia: Patient is currently on Levophed as well as vasopressin Continue broad-spectrum antibiotic. # Bilateral subcutaneous emphysema: Status post bilateral chest tube placement.As well as lt Thora vent. #Pneumomediastinum: #Trace left pneumothorax bilateral DVTs in both popliteal veins extending into the calf veins, on therapeutic Lovenox Sepsis, resolved, secondary to COVID-19 pneumonia as above ZACHARIAH creatinine up to 1.3, secondary to sepsis, diuretic therapy, COVID-19 pneumonia, urine output 3050, NSTEMI, likely type II NSTEMI, supply demand ischemia from COVID-19 pneumonia as above, respiratory failure, continue telemetry monitoring, order cardiac echocardiogram Hypernatremia : On D5W @75 CC/Hr.Monitor BMP Transaminitis :Likely hpoxia mediated. 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 skilled nursing insulin use status Diabetes mellitus complication status: with other specified complication Qualified Code(s): E11.69 - Type 2 diabetes mellitus with other specified complication (5) Sepsis: Status: Acute (6) ZACHARIAH (acute kidney injury): Status: Acute (7) NSTEMI (non-ST elevated myocardial infarction): Status: Acute (8) Hypernatremia: Status: Acute Additional A&P Information Code Status: Full code DVT PPX: On Lovenox Attestations Medical Necessity Statement*: Proceeding with comfort care, pneumonia sec to COVID-19, acute respiratory failure, acute renal failure, acidosis, sepsis Coding Level of Care Code Acute [employer] for 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
--- NOTE | 2021-05-14 20:00 | PC.NURSE ---
Comfor measures started at 1530 since nimbex was no longer affecting the patient. Morphone and ativan administered per orders/as indicated. Patient's girlfriend radha leydi wished to see the patient during comfort care and i set up facetime so she could talk with him.
--- NOTE | 2021-05-14 20:01 | PC.NURSE ---
Addendum entered by Popeye Weinstein RN 05/14/21 20:05: At 1833, patient went into [facility]. Coating Mixer and Nurse Domenico Winkler verified no detectable heart beat. Dr weir notified. Family has been notified. Nurse called [facility] referral line and Lamar advised patient is not a candidate. [facility] referral#: [id number] Original Note: At 833, patient went into [facility]. Coating Mixer and Nurse Domenico Winkler verified no detectable heart beat. Dr weir notified. Family has been notified. Nurse called [facility] referral line and Lamar advised patient is not a candidate.
--- NOTE | 2021-05-14 20:04 | PC.NURSE ---
Nurse cleaned body and removed all lines. Family will be using [facility] who has been notified.
[2021-05-16 13:22] LABS: Erythrocyte Sedimentation Rate 25 mm/hr (0-10)
[2021-05-16 13:23] LABS: Erythrocyte Sedimentation Rate 56 mm/hr (0-10)
[2021-05-16 13:25] LABS: Erythrocyte Sedimentation Rate 41 mm/hr (0-10)
--- NOTE | 2021-05-18 09:35 | P.DES_ITS ---
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 insulin use stat Qualified Code(s): E11.69 - Type 2 diabetes mellitus with other specified complication (5) Sepsis: (6) ZACHARIAH (acute kidney injury): (7) NSTEMI (non-ST elevated myocardial infarction): (8) Hypernatremia: Reason for Visit Reason for Visit: COVID-DYSPNEA Summary Date and Time of Date of : 05/14/21 Time of : 18:33 Summary Summary: This is a 61-year-old male with a past medical history of type 2 diabetes mellitus, who presents to [facility] for shortness of breath Patient was admitted to [facility] for acute hypoxic respiratory failure secondary to COVID-19 pneumonia, with acute respiratory distress syndrome, with septic shock, sepsis, bilateral lower extremity DVTs. Patient received broad-spectrum antibiotic therapy, remdesivir, steroids, intubation and mechanical ventilation, completed 3 sessions of proning. Patient condition worsened with development of bilateral subcutaneous emphysema with p neumomediastinum requiring bilateral chest tube placement with thoracic vent, he developed worsening acute renal failure, he developed worsening sepsis with septic shock, and worsening acute respiratory failure. After discussion with patient's family, decision was made to pursue comfort care, patient was made comfort care, patient 05/14/2021 at 1833 Additional Data Confirmation of as documented by pronouncing clinician: no pulse Family: contacted Additional persons at bedside: nursing staff Attending/PCP notified?: I am attending Was code activated?: No Autopsy requested?: No Advance directives?: No Hospice patient?: No Discharge Plan Discharge Patient Disposition: Condition: Stable Probable Cause of Probable cause of : Cardiac arrest DS Attestations Time Spent in /Discharge Care*: less than 30 min Quality - AMI: AMI present?: No Quality - Stroke: CVA present?: No Symptom Onset Unknown: No Quality - VTE: VTE present?: No Deep Vein Thrombosis/Pulmonary Embolism Present on Admission: No Coding Level of Care Code Acute 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
== END 2021-05-14 21:00 | disposition expired | DRG 870 ==
LOC: ER 05-03 03:32 → ER IP 05-03 06:26 → ICU 05-03 18:52
PROVIDERS: Hospitalist; Internal Medicine; Internal Medicine Nephrology; Internal Medicine Pulmonary Disease; Admitting Provider Student in an Organized Health Care Education/Training Program; Emergency Provider Emergency Medicine; Visit Provider Family Medicine
DX: A41.9 Sepsis, unspecified organism (principal); U07.1 COVID-19; R65.21 Severe sepsis with septic shock; J12.82 Pneumonia due to coronavirus disease 2019; J80 Acute respiratory distress syndrome; I21.A1 Myocardial infarction type 2; J15.211 Pneumonia due to Methicillin susceptible Staphylococcus aureus; I82.453 Acute embolism and thrombosis of peroneal vein, bilateral; N17.9 Acute kidney failure, unspecified; J93.9 Pneumothorax, unspecified; I95.9 Hypotension, unspecified; E11.9 Type 2 diabetes mellitus without complications; J98.2 Interstitial emphysema; Z51.5 Encounter for palliative care; E87.5 Hyperkalemia; I48.91 Unspecified atrial fibrillation; I46.9 Cardiac arrest, cause unspecified
CPT/HCPCS: 31500; 36415; 36416; 36556; 36592; 36600; 51702; 71045; 71275; 76705; 80048; 80051; 80053; 80069; 80202; 82330; 82550; 82728; 82803; 82805; 82962; 83036; 83605; 83735; 83880; 84100; 84145; 84443; 84484; 85007; 85025; 85378; 85384; 85610; 85651; 85730; 86140; 86403; 87040; 87070; 87077; 87186; 87205; 87426; 87449; 87635; 87641; 93005; 93306; 93970; 94002; 94003; 94640; 94660; 94799; 96365; 96372; 99291; A4570; C1751; C9113; J0282; J0330; J0456; J0461; J0692; J0696; J0743; J1100; J1650; J1815; J1940; J1956; J2060; J2250; J2270; J2543; J2704; J3010; J3370; J3490; J7030; J7040; J7050; J7060; J7626; P9047; Q3014; Q9967